=== PATIENT | female | born 1970 | race Caucasian/White ===

== ENCOUNTER 2022-02-14 19:39 | Observation (INO) ==
[2022-02-14 20:13] LABS: Basophils # (auto) 0.06 K/uL (0-0.2); Basophils % (auto) 0.5 %; Eosinophils # (auto) 0.27 K/uL (0-0.50); Eosinophils % (auto) 2.1 %; Hemoglobin 12.6 g/dl (12.0-16.0); Immature Granulocytes # (auto) 0.08 K/uL (0.00-0.02); Immature Granulocytes % (auto) 0.6 %; Lymphocytes # (auto) 3.19 K/uL (1.2-3.4); Lymphocytes % (auto) 24.6 %; Mean Corpuscular Hgb Conc 34.1 g/dL (32.0-36.0); Mean Corpuscular Volume 93.9 fL (80.0-100.0); Mean Platelet Volume 10.4 fL (9.4-12.3); Monocytes % (auto) 6.2 %; Neutrophils # (auto) 8.57 K/uL (1.4-6.5); Platelet Count 275 K/uL (130-400); RDW Coefficient of Variation 14.6 % (11.5-14.5); RDW Standard Deviation 50.7 fL (36.4-46.3); Red Blood Count 3.94 M/uL (3.93-5.22); White Blood Count 12.97 K/ul (4.8-10.8)
--- NOTE | 2022-02-14 20:22 | CT Scan Report ---
HEAD CT NONCONTRAST CT DOSE: 691.05 mGy.cm HISTORY: fall, hit head, seizure TECHNIQUE: Multiaxial CT images of the head were performed without the use of intravenous contrast. A utomated exposure control was utilized for this study. A dose lowering technique was utilized adheri ng to the principles of ALARA. Comparison: None. Findings: The paranasal sinuses and mastoid air cells are clear. The calvarium and skull base are int act. The ventricles and sulci are within normal limits. There is no mass, hematoma, midline shift, or acute infarct. A few small calcified scalp nodules are noted. Mild right-sided scalp swelling. Impression: No acute intracranial abnormality. ACT 112: Negative or not required by law. Electronically signed by: Martin Ruff M.D. 02/14/2022 8:20 PM
[2022-02-14 20:45] LABS: Alanine Aminotransferase 38 U/L (7-52); Albumin Globulin Ratio 1.8 (0.9-2); Alkaline Phosphatase 92 U/L (34-104); Anion Gap 6 (3-11); Aspartate Aminotransferase 46 U/L (13-39); BUN Creatinine Ratio 19.3 (10-20); Bilirubin,Total 0.4 mg/dl (0.2-1.0); Blood Urea Nitrogen 17 mg/dl (6-23); Calcium 10.4 mg/dl (8.5-10.1); Carbon Dioxide 32 mmol/L (21-32); Chloride 102 mmol/L (98-107); Est GFR (African American) 87.6 ml/min; Est GFR (Non-African American) 75.5 ml/min; Globulin 2.8 gm/dl (2.5-4.0); Glucose 85 mg/dl (70-99(Fasting)); Sodium 140 mmol/L (136-145); Total Protein 7.8 gm/dl (6.0-8.3)
--- NOTE | 2022-02-14 20:53 | Emergency Department Note ---
Impression & Plan CHI (closed head injury), Breakthrough seizure, Facial numbness ED Provider Note Provider: Addy Callahan MD DATE OF SERVICE: 02/09/2022 CHIEF COMPLAINT: Seizure, fall HISTORY OF PRESENT ILLNESS: Patient is a 52-year-old female reported history of grand mal seizures since he was a child presenting here today after a seizure- like event. States that around 3 PM she was at home walking outside of a sudden collapse to the ground. Unsure how she was down for believe she had a seizure and did have incontinence. Woke up and made her way back inside. Complained of some pain and swelling of the right posterior head and feeling foggy and having some numbness to the right face and forehead as well as feeling weak in her hands. States after seizure she symptoms feels little bit weak but does not have this tingling history in the past. States she feels quite foggy and has a hard time remembering recent events. Evidently moving to the area from [place] and came here after checking with other family members about a week ago. Reports a bit of a headache. Denies other pain or injury to her chest or extremities. Reports she has been maintained on 1500 mg of nightly of Keppra but has not taken it in a month. Last seizure was about 3 months ago and followed in [place] with the neurologist and her primary doctor. Is looking to establish care locally once she got here. PAST MEDICAL HISTORY: As noted above MEDICATIONS: Reviewed home medications but not currently taking her Keppra SOCIAL HISTORY: Moving to the area from [place] PHYSICAL EXAM: GENERAL: alert and oriented in no acute distress on stretcher however is a bit anxious at times and forgetful of some recent events Head: normocephalic and atraumatic EYES: No injection, discharge or icterus. PERRL, EOMI. NECK: Trachea midline. Supple. ENT: Mucous membranes pink and moist. Pharynx without erythema or exudate. LUNGS: Airway patent. No retractions. Breath sounds clear with good air entry bilaterally. HEART: Regular rate and rhythm. No chest wall tenderness ABDOMEN: Soft and non-tender, without guarding or rebound. SKIN: Acyanotic, warm, dry, without rashes EXTREMITIES: Without swelling, tenderness or deformity NEUROLOGICAL: No aphasia. No facial droop or slurred speech. Normal strength and tone in the extremities. Sensation to gross touch normal in the extremities however endorses some tingling to her right face the jawline, across the cheek, and across the forehead. Ambulatory. EK bpm normal sinus rhythm. No PVC or PAC. No acute ST segment elevation or depression with a QTC of 443. CONTINUOUS CARDIAC MONITORING: was ordered and showed a heart rate of 70s-80s bpm in normal sinus rhythm Patient's laboratory studies and imaging reviewed. Differential includes Epilepsy, infection, hypoglycemia, electrolyte abnormalities, cardiac sources, intracerebral event, trauma, toxicologic, neurologic, syncope, as well as other pathologies. IMPRESSION/MEDICAL DECISION MAKING: Patient reported seizure earlier today. Reports some numbness and tingling to her right face including the forehead cheek and under her chin. Denies significant cute visual change but feels a bit foggy. Not hypoglycemic. Slight tenderness to the right posterior head but CT head without acute fracture or bleeding. No evidence of sinus disease but has reported with sinus congestion. Offer Which may be contributing. We will give a single dose of 2 g IV now. Basic labs obtained as well as EKG. Reviewed with the patient via her phone her outpatient medication list. Leukocytosis 12.9 but denies recent fevers does not have a fever here and question of this reactive to her seizure. No anemia. No significant electrolyte abnormality with a borderline high calcium of 10.4. Negative urinalysis. Negative COVID. CT brain report again which was reassuring. Given the tingling to the face question of this is postictal versus mild concussion given the fogginess she is having. Is able to answer question but again forgetful. Does not seem consistent with stroke distribution as again it does involve just the right side of the forehead which has dual innervation. Patient however is not back to her baseline. Monitor her brief and again given an IV dose of Keppra. Do not feel she requires a lumbar puncture at this time. Not having significant neck tenderness on exam. The nonspecific tingling of the right forehead and face seems not distributional and again low suspicion for CVA. Ambulatory to the bathroom but later a bit nauseous and given some Zofran. Patient improved. On reevaluation states she still feels very often is a bit confused still and with tingling on the right side of her face. Given this discussed with her further observation as she is not returned to baseline after this evening's apparent seizure. DIAGNOSIS: Breakthrough seizure, closed head injury, facial numbness DISPOSITION: Hospitalist will evaluate Patient was agreeable with this plan. Past Med/Surg History Social History Smoking Status: Current every day smoker Feels Safe at Home: Yes Allergies Allergies Allergy/AdvReac Type Severity Reaction Status Date / Time ampicillin Allergy Severe Anaphylaxis Verified 02/14/22 22:21 bee venom protein (honey bee) Allergy Severe Anaphylaxis Verified 02/14/22 22:21 droperidol [From Inapsine] Allergy Severe TONGUE Verified 02/14/22 22:21 SWELLED, HIVES Penicillins Allergy Severe Anaphylaxis Verified 02/14/22 22:21 promethazine [From Phenergan] Allergy Intermediate Hives Verified 02/14/22 22:21 Home Meds Home Medications Medication Instructions Recorded Confirmed albuterol sulfate 2.5 mg/3 mL 2.5 mg inhalation DIRECTED PRN 02/14/22 02/14/22 (0.083 %) solution for nebulization Shortness Of Breath Or Wheezing albuterol sulfate 90 mcg/actuation 2 puff inhalation DIRECTED PRN 02/14/22 02/14/22 aerosol inhaler Shortness Of Breath Or Wheezing cyanocobalamin (vitamin B-12) 1,000 mcg PO DAILY 02/14/22 02/14/22 1,000 mcg tablet (Vitamin B-12) cyclobenzaprine 10 mg tablet 10 mg PO TID PRN MUSCLE SPASMS 02/14/22 02/14/22 epinephrine 0.3 mg/0.3 mL 0.3 mg IM DIRECTED PRN Allergic 02/14/22 02/14/22 injection, auto-injector (EpiPen) Reaction fluticasone 500 mcg-salmeterol 50 1 inh inhalation BID 02/14/22 02/14/22 mcg/dose blistr powdr for inhalation (Advair Diskus) ibuprofen 800 mg tablet 800 mg PO Q6H PRN Pain 02/14/22 02/14/22 levetiracetam 500 mg 1,500 mg PO DAILY 02/14/22 02/14/22 tablet,extended release 24 hr (Keppra XR) levothyroxine 200 mcg tablet 200 mcg PO QAM 02/14/22 02/14/22 levothyroxine 50 mcg tablet 50 mcg PO QAM 02/14/22 02/14/22 tramadol 50 mg tablet 50 mg PO Q6H PRN Pain 02/14/22 02/14/22 Results & Data (ED) Vital Signs Vital Signs - 24 hr 02/14/22 19:47 02/14/22 20:30 02/14/22 20:30 Temperature 36.4 C L Temperature Source Temporal Artery Scan Pulse Rate 85 Pulse Rate [Apical] 78 Respiratory Rate 20 18 Respiratory Effort / Characteristics Non-Labored Respiratory Depth Normal Blood Pressure 156/99 H Blood Pressure [Left Arm] 148/94 H Blood Pressure Mean 118 Blood Pressure Mean [Left Arm] 112 Blood Pressure Position Sitting Pulse Oximetry 100 97 Oxygen Delivery Method Room Air Room Air Room Air Sepsis Recent Fever Within 48 Hours No Sepsis New/Unexplained Change in Mental Status N/A Sepsis Action Taken by Nursing No Action Required 02/14/22 21:30 02/14/22 22:00 02/14/22 22:00 Temperature Temperature Source Pulse Rate 69 Pulse Rate [Apical] 71 Respiratory Rate 18 17 Respiratory Effort / Characteristics Respiratory Depth Blood Pressure 136/82 Blood Pressure [Left Arm] 128/90 Blood Pressure Mean 100 Blood Pressure Mean [Left Arm] 102 Blood Pressure Position Pulse Oximetry 97 97 Oxygen Delivery Method Room Air Sepsis Recent Fever Within 48 Hours Sepsis New/Unexplained Change in Mental Status Sepsis Action Taken by Nursing 02/14/22 22:30 02/14/22 22:30 Temperature Temperature Source Pulse Rate 71 Pulse Rate [Apical] Respiratory Rate 20 Respiratory Effort / Characteristics Respiratory Depth Blood Pressure 132/81 Blood Pressure [Left Arm] Blood Pressure Mean 98 Blood Pressure Mean [Left Arm] Blood Pressure Position Pulse Oximetry 97 Oxygen Delivery Method Room Air Sepsis Recent Fever Within 48 Hours Sepsis New/Unexplained Change in Mental Status Sepsis Action Taken by Nursing Laboratory Data 02/14/22 19:58 02/14/22 19:58 Lab Results 02/14/22 02/14/22 02/14/22 Range/Units 19:58 19:58 20:30 WBC 12.97 H (4.8-10.8) K/ul RBC 3.94 (3.93-5.22) M/uL Hgb 12.6 (12.0-16.0) g/dl Hct 37.0 (34.1-44.9) % MCV 93.9 (80.0-100.0) fL MCH 32.0 (25.0-34.0) pg MCHC 34.1 (32.0-36.0) g/dL RDW Std Deviation 50.7 H (36.4-46.3) fL RDW Coeff of Domo 14.6 H (11.5-14.5) % Plt Count 275 (130-400) K/uL MPV 10.4 (9.4-12.3) fL Immature Gran % (Auto) 0.6 % Neut % (Auto) 66.0 % Lymph % (Auto) 24.6 % [place] % (Auto) 6.2 % Eos % (Auto) 2.1 % Baso % (Auto) 0.5 % Neut # (Auto) 8.57 H (1.4-6.5) K/uL Lymph # (Auto) 3.19 (1.2-3.4) K/uL [place] # (Auto) 0.80 (0.24-0.82) K/uL Eos # (Auto) 0.27 (0-0.50) K/uL Baso # (Auto) 0.06 (0-0.2) K/uL Immature Gran # (Auto) 0.08 H (0.00-0.02) K/uL Sodium 140 (136-145) mmol/L Potassium 4.0 (3.5-5.1) mmol/L Chloride 102 (98-107) mmol/L Carbon Dioxide 32 (21-32) mmol/L Anion Gap 6 (3-11) BUN 17 (6-23) mg/dl Creatinine 0.88 (0.6-1.2) mg/dl Est Cr Clr Drug Dosing Not Reportable Est GFR ( Amer) 87.6 ml/min Est GFR (Non-Af Amer) 75.5 ml/min BUN/Creatinine Ratio 19.3 (10-20) Glucose 85 (70-99(Fasting)) mg/dl Calcium 10.4 H (8.5-10.1) mg/dl Total Bilirubin 0.4 (0.2-1.0) mg/dl AST 46 H (13-39) U/L ALT 38 (7-52) U/L Alkaline Phosphatase 92 (34-104) U/L Total Protein 7.8 (6.0-8.3) gm/dl Albumin 5.0 (3.4-5.0) gm/dl Globulin 2.8 (2.5-4.0) gm/dl Albumin/Globulin Ratio 1.8 (0.9-2) Urine Color Urine Appearance (Clear) Urine pH (4.5-7.5) Ur Specific [place] (1.000-1.030) Urine Protein (Negative) Urine Glucose (UA) (Negative) Urine Ketones (Negative) Urine Blood (Negative) Urine Nitrite (Negative) Urine Bilirubin (Negative) Urine Urobilinogen (Negative) Ur Leukocyte Esterase (Negative) SARS-CoV-2, RNA, NAAT NEGATIVE (NEGATIVE) 02/14/22 Range/Units 20:56 WBC (4.8-10.8) K/ul RBC (3.93-5.22) M/uL Hgb (12.0-16.0) g/dl Hct (34.1-44.9) % MCV (80.0-100.0) fL MCH (25.0-34.0) pg MCHC (32.0-36.0) g/dL RDW Std Deviation (36.4-46.3) fL RDW Coeff of Domo (11.5-14.5) % Plt Count (130-400) K/uL MPV (9.4-12.3) fL Immature Gran % (Auto) % Neut % (Auto) % Lymph % (Auto) % [place] % (Auto) % Eos % (Auto) % Baso % (Auto) % Neut # (Auto) (1.4-6.5) K/uL Lymph # (Auto) (1.2-3.4) K/uL [place] # (Auto) (0.24-0.82) K/uL Eos # (Auto) (0-0.50) K/uL Baso # (Auto) (0-0.2) K/uL Immature Gran # (Auto) (0.00-0.02) K/uL Sodium (136-145) mmol/L Potassium (3.5-5.1) mmol/L Chloride (98-107) mmol/L Carbon Dioxide (21-32) mmol/L Anion Gap (3-11) BUN (6-23) mg/dl Creatinine (0.6-1.2) mg/dl Est Cr Clr Drug Dosing Est GFR ( Amer) ml/min Est GFR (Non-Af Amer) ml/min BUN/Creatinine Ratio (10-20) Glucose (70-99(Fasting)) mg/dl Calcium (8.5-10.1) mg/dl Total Bilirubin (0.2-1.0) mg/dl AST (13-39) U/L ALT (7-52) U/L Alkaline Phosphatase (34-104) U/L Total Protein (6.0-8.3) gm/dl Albumin (3.4-5.0) gm/dl Globulin (2.5-4.0) gm/dl Albumin/Globulin Ratio (0.9-2) Urine Color Yellow Urine Appearance Clear (Clear) Urine pH 7.0 (4.5-7.5) Ur Specific [place] 1.004 (1.000-1.030) Urine Protein Negative (Negative) Urine Glucose (UA) Negative (Negative) Urine Ketones Negative (Negative) Urine Blood Negative (Negative) Urine Nitrite Negative (Negative) Urine Bilirubin Negative (Negative) Urine Urobilinogen Negative (Negative) Ur Leukocyte Esterase Negative (Negative) SARS-CoV-2, RNA, NAAT (NEGATIVE) Administered Medications Discontinued Medications Levetiracetam 2,000 mg/ Sodium (Chloride) 270 mls @ 999 mls/hr IV NOW STA Stop: 02/14/22 21:03 Last Infusion: 02/14/22 21:28 Dose: 0 mls/hr Documented By: Admin: 02/14/22 21:07 Dose: 999 mls/hr Documented By: MYCHAL Ondansetron HCl (Ondansetron Inj 2 Mg/Ml 2 Ml Vial) 4 mg IV NOW STA Stop: 02/14/22 21:16 Last Admin: 02/14/22 21:26 Dose: 4 mg Documented By: MYCHAL Imaging Data Radiologist's Impression: Head CT 02/14/22 20:[address] DOSE: 691.05 mGy.cm HISTORY: fall, hit head, seizure TECHNIQUE: Multiaxial CT images of the head were performed without the use of intravenous contrast. Automated exposure control was utilized for this study. A dose lowering technique was utilized adhering to the principles of ALARA. Comparison: None. Findings: The paranasal sinuses and mastoid air cells are clear. The calvarium and skull base are intact. The ventricles and sulci are within normal limits. There is no mass, hematoma, midline shift, or acute infarct. A few small calcified scalp nodules are noted. Mild right-sided scalp swelling. Impression: No acute intracranial abnormality. ACT 112: Negative or not required by law. Electronically signed by: Martin Ruff M.D. 02/14/2022 8:20 PM Discharge Plan Visit Data Chief Complaint: Seizure Stated Complaint: Seizure AROUND 1500 TODAY ED Provider: Addy Callahan Discharge Problem: CHI (closed head injury), Breakthrough seizure, Facial numbness Patient Disposition: Being Evaluated by Hospitalist Forms Stand Alone Forms: My [facility] Prescriptions Prescriptions: No Action cyclobenzaprine 10 mg tablet 10 mg PO TID PRN (Reason: MUSCLE SPASMS) albuterol sulfate 2.5 mg /3 mL (0.083 %) Solution For Nebulization 2.5 mg INHALATION DIRECTED PRN (Reason: Shortness Of Breath Or Wheezing) ibuprofen 800 mg tablet 800 mg PO Q6H PRN (Reason: Pain) cyanocobalamin (vitamin B-12) [Vitamin B-12] 1,000 mcg Tablet 1,000 mcg PO DAILY tramadol 50 mg tablet 50 mg PO Q6H PRN (Reason: Pain) levothyroxine 50 mcg tablet 50 mcg PO QAM Rx Instructions: TOTAL DOSE 250 MCG--TAKES WITH 200 MCG TAB. fluticasone propion-salmeterol [Advair Diskus] 500-50 mcg/dose Blister With Device 1 inh INHALATION BID levothyroxine 200 mcg tablet 200 mcg PO QAM Rx Instructions: TOTAL DOSE 250 MCG--TAKES WITH 50 MCG TAB. epinephrine [EpiPen] 0.3 mg/0.3 mL Auto-Injector 0.3 mg IM DIRECTED PRN (Reason: Allergic Reaction) albuterol sulfate 90 mcg/actuation Hfa Aerosol Inhaler 2 puff INHALATION DIRECTED PRN (Reason: Shortness Of Breath Or Wheezing) levetiracetam [Keppra XR] 500 mg Tablet Extended Release 24 Hr 1,500 mg PO DAILY Referrals Referrals: PCP,NO [Primary Care Provider] - : CHI (closed head injury) Qualifiers: Encounter type: initial encounter Qualified Code(s): S09.90XA - Unspecified injury of head, initial encounter
[2022-02-14 21:05] LABS: Appearance Urine Clear (Clear); Bilirubin Urine Negative (Negative); Blood Urine Negative (Negative); Color Urine Yellow; Glucose Urine UA Negative (Negative); Ketones Urine Negative (Negative); Leukocyte Esterase Urine Negative (Negative); Nitrite Urine Negative (Negative); Protein Urine Negative (Negative); Specific Gravity Urine 1.004 (1.000-1.030); Urobilinogen Urine Negative (Negative)
[2022-02-14] MEDS ORDERED: ONDANSETRON INJ 2 MG/ML 2 ML VIAL IV STA (21:15)
--- NOTE | 2022-02-14 23:04 | History & Physical Report ---
Date of Service February 14, 2022 Assessment & Plan (1) Seizure disorder: Plan: 52yo female with history of epilepsy on Keppra 1500mg po daily, non-compliance with medications presenting with seizure today. She feels that she is more confused and doesn't feel back to normal. She feels that she having her seizure prodrome presently and thinks that she is going to have another seizure. Electrolytes are largely normal with only mild elevation of Ca. Glucose and Na are normal. CT Head is unremarkable. Suspect seizure secondary to medication non-adherence. Post-ictal state with possible Jelani paresis accounting for her facial numbness - atypical distribution? Possible mild-TBI, post-concussive syndrome can also be contributing to patient feeling "off" as well -Admit to medical with telemetry -Check Utox and Etoh level -Maintain seizure precautions -Ativan 2mg IV as needed for seizure activity -Continue Keppra 1500mg po daily -Obtain records from patient's PCP in [place] -Neurology consultation appreciated (2) Mild TBI: Plan: Patient reports ground level fall, striking the back right side of her head on the pavement. She is complaining of head pain as well as some neck discomfort. CT of the head notes mild right-sided scalp swelling. No intracranial pathology. CT of the c-spine is complete, results pending. Possible that mild concussion is contributing to patient's current state of feeling "off" -Await CT c-spine results -Neuro checks with [facility] q 4 hours -Neurology consultation appreciated (3) Hypothyroidism: Plan: Chronic -Check TSH with AM labs -Continue Synthroid 250mcg po daily (4) Asthma: Plan: Patient reports chronic, stable SOB. No cough, wheeze or worsening dyspnea -Continue Advair or formulary equivalent -Albuterol PRN (5) GILBERTO on CPAP: Plan: Chronic. Patient reports compliance with CPAP at home, 17cm H20 -CPAP qHS History of Present Illness Chief Complaint: seizure Primary Care Provider: NO PCP Aide Knott is a 52yo female with history of epilepsy on Keppra 1500mg po qHS as well as hypothyroidism, Asthma, GILBERTO, VTE and breast cancer s/p lumpectomy and chemotherapy now in remission. Patient is from [place] and is currently in the process of moving to the [facility]. She has not taken her Keppra for the last month. This afternoon around 1500 patient was with her partner. She left the house and was walking toward her car. She woke up approximately 20 minutes later laying on the driveway. She knows that she had a seizure because she was incontinent of both stool and urine and had a contusion on the back of her head. She thinks she was out for approximately 20 minutes because she started her car before the seizure and it was off when she woke up - reports that it typically runs 20 minutes before shutting off. Patient states that she has numbness of her face, predominantly across her forehead and near the right nasolabial fold and the right side of the mouth. She also feels somewhat confused and foggy as well as some nausea and headache. She reports she is feeling her seizure prodrome now - feels funny and tastes band-aides in her mouth. Patient states that after a seizure she typically sleeps the rest of the day but was anxious to sleep now because she thinks she may have a concussion. She denies fever, chills, chest pain, cough, SOB, abdominal pain. No EtOH use or recreational drug use. Patient has had seizures since childhood. She is on Keppra 1500mg po qHS but due to the move she has not taken it for the last month. She had a seizure three months ago and thinks she had one approximately 1 month ago as well. PCP is Dr. Crow Montemayor from [place], [place] In the ER patient was given 2000mg of Keppra IV Allergies Allergy/AdvReac Type Severity Reaction Status Date / Time ampicillin Allergy Severe Anaphylaxis Verified 02/14/22 22:21 bee venom protein (honey bee) Allergy Severe Anaphylaxis Verified 02/14/22 22:21 droperidol [From Inapsine] Allergy Severe TONGUE Verified 02/14/22 22:21 SWELLED, HIVES Penicillins Allergy Severe Anaphylaxis Verified 02/14/22 22:21 promethazine [From Phenergan] Allergy Intermediate Hives Verified 02/14/22 22:21 Home Medications Medication Instructions Recorded Confirmed Type albuterol sulfate 2.5 mg/3 mL 2.5 mg inhalation DIRECTED PRN 02/14/22 02/14/22 History (0.083 %) solution for nebulization Shortness Of Breath Or Wheezing albuterol sulfate 90 mcg/actuation 2 puff inhalation DIRECTED PRN 02/14/22 02/14/22 History aerosol inhaler Shortness Of Breath Or Wheezing cyanocobalamin (vitamin B-12) 1,000 mcg PO DAILY 02/14/22 02/14/22 History 1,000 mcg tablet (Vitamin B-12) cyclobenzaprine 10 mg tablet 10 mg PO TID PRN MUSCLE SPASMS 02/14/22 02/14/22 History epinephrine 0.3 mg/0.3 mL 0.3 mg IM DIRECTED PRN Allergic 02/14/22 02/14/22 History injection, auto-injector (EpiPen) Reaction fluticasone 500 mcg-salmeterol 50 1 inh inhalation BID 02/14/22 02/14/22 History mcg/dose blistr powdr for inhalation (Advair Diskus) ibuprofen 800 mg tablet 800 mg PO Q6H PRN Pain 02/14/22 02/14/22 History levetiracetam 500 mg 1,500 mg PO DAILY 02/14/22 02/14/22 History tablet,extended release 24 hr (Keppra XR) levothyroxine 200 mcg tablet 200 mcg PO QAM 02/14/22 02/14/22 History levothyroxine 50 mcg tablet 50 mcg PO QAM 02/14/22 02/14/22 History tramadol 50 mg tablet 50 mg PO Q6H PRN Pain 02/14/22 02/14/22 History Past Med/Surg History Medical History (Updated 02/15/22 @ 00:41 by Esthela Samson DO) Asthma Breast cancer In remission s/p lumpectomy and chemotherapy Hypothyroidism GILBERTO on CPAP Seizure disorder VTE (venous thromboembolism) history of RLE DVT s/p anticoagulation Surgical History (Updated 02/15/22 @ 00:18 by Esthela Samson DO) History of lumpectomy History of wisdom tooth extraction Family History (Updated 02/15/22 @ 00:18 by Esthela Samson DO) Other Cancer Social History (Updated 02/15/22 @ 00:18 by Esthela Samson DO) Smoking Status: Current every day smoker Hx Alcohol Use: No Hx Substance Use: No Feels Safe at Home: Yes Review of Systems Review of Systems: All systems reviewed & are unremarkable except as noted in HPI & below Physical Exam Physical Exam: General: patient resting comfortably, sleepy but answering questions and following commands, NAD, non-toxic in appearance, AA&O x 4 Skin: warm, dry, intact, no rashes or lesions HEENT: contusion on right posterior head, PERRL, +photophobia, EOMI, anicteric sclera, conjunctiva without injection, external ear normal to inspection and nontender, nares patent, moist mucus membranes, dentition intact, no oropharyngeal lesions, neck supple, trachea midline, no LAD, no thyromegaly, no JVD Heart: +S1/S2, regular, no m/r/g Lungs: equal air entry bilaterally, no rales/rhonchi/wheezes Abd: +BS, soft, NT/ND, no masses/organomegaly/ascites Ext: warm, 2+ pulses in UE/LE bilaterally, no clubbing/cyanosis or edema Neuro: nonfocal, patient AA&O x 4, speech slow, slightly slurred, no facial droop, moving all extremities on command with equal strength 5/5, decreased sensation to light touch across forehead, right V2 and V3 distribution Results & Data Results & Data ([facility]) Vital Signs (Past 12 Hours) Vital Signs Temp Pulse Pulse Resp BP BP Pulse Ox 02/14/22 22:30 71 20 97 02/14/22 22:30 132/81 02/14/22 22:00 69 17 97 02/14/22 22:00 136/82 02/14/22 21:30 71 18 128/90 97 02/14/22 20:30 78 18 148/94 H 97 02/14/22 20:30 02/14/22 19:47 36.4 C L 85 20 156/99 H 100 O2 Del Method 02/14/22 22:30 Room Air 02/14/22 22:30 02/14/22 22:00 02/14/22 22:00 02/14/22 21:30 Room Air 02/14/22 20:30 Room Air 02/14/22 20:30 Room Air 02/14/22 19:47 Room Air Laboratory Results Laboratory Results WBC 12.97 K/ul (4.8-10.8) H 02/14/22 19:58 RBC 3.94 M/uL (3.93-5.22) 02/14/22 19:58 Hgb 12.6 g/dl (12.0-16.0) 02/14/22 19:58 Hct 37.0 % (34.1-44.9) 02/14/22 19:58 MCV 93.9 fL (80.0-100.0) 02/14/22 19:58 MCH 32.0 pg (25.0-34.0) 02/14/22 19:58 MCHC 34.1 g/dL (32.0-36.0) 02/14/22 19:58 RDW Std Deviation 50.7 fL (36.4-46.3) H 02/14/22 19:58 RDW Coeff of Domo 14.6 % (11.5-14.5) H 02/14/22 19:58 Plt Count 275 K/uL (130-400) 02/14/22 19:58 MPV 10.4 fL (9.4-12.3) 02/14/22 19:58 Immature Gran % (Auto) 0.6 % 02/14/22 19:58 Neut % (Auto) 66.0 % 02/14/22 19:58 Lymph % (Auto) 24.6 % 02/14/22 19:58 [place] % (Auto) 6.2 % 02/14/22 19:58 Eos % (Auto) 2.1 % 02/14/22 19:58 Baso % (Auto) 0.5 % 02/14/22 19:58 Neut # (Auto) 8.57 K/uL (1.4-6.5) H 02/14/22 19:58 Lymph # (Auto) 3.19 K/uL (1.2-3.4) 02/14/22 19:58 [place] # (Auto) 0.80 K/uL (0.24-0.82) 02/14/22 19:58 Eos # (Auto) 0.27 K/uL (0-0.50) 02/14/22 19:58 Baso # (Auto) 0.06 K/uL (0-0.2) 02/14/22 19:58 Immature Gran # (Auto) 0.08 K/uL (0.00-0.02) H 02/14/22 19:58 Sodium 140 mmol/L (136-145) 02/14/22 19:58 Potassium 4.0 mmol/L (3.5-5.1) 02/14/22 19:58 Chloride 102 mmol/L (98-107) 02/14/22 19:58 Carbon Dioxide 32 mmol/L (21-32) 02/14/22 19:58 Anion Gap 6 (3-11) 02/14/22 19:58 BUN 17 mg/dl (6-23) 02/14/22 19:58 Creatinine 0.88 mg/dl (0.6-1.2) 02/14/22 19:58 Est Cr Clr Drug Dosing Not Reportable 02/14/22 19:58 Est GFR ( Amer) 87.6 ml/min 02/14/22 19:58 Est GFR (Non-Af Amer) 75.5 ml/min 02/14/22 19:58 BUN/Creatinine Ratio 19.3 (10-20) 02/14/22 19:58 Glucose 85 mg/dl (70-99(Fasting)) 02/14/22 19:58 Calcium 10.4 mg/dl (8.5-10.1) H 02/14/22 19:58 Total Bilirubin 0.4 mg/dl (0.2-1.0) 02/14/22 19:58 AST 46 U/L (13-39) H 02/14/22 19:58 ALT 38 U/L (7-52) 02/14/22 19:58 Alkaline Phosphatase 92 U/L (34-104) 02/14/22 19:58 Total Protein 7.8 gm/dl (6.0-8.3) 02/14/22 19:58 Albumin 5.0 gm/dl (3.4-5.0) 02/14/22 19:58 Globulin 2.8 gm/dl (2.5-4.0) 02/14/22 19:58 Albumin/Globulin Ratio 1.8 (0.9-2) 02/14/22 19:58 Urine Color Yellow 02/14/22 20:56 Urine Appearance Clear (Clear) 02/14/22 20:56 Urine pH 7.0 (4.5-7.5) 02/14/22 20:56 Ur Specific [place] 1.004 (1.000-1.030) 02/14/22 20:56 Urine Protein Negative (Negative) 02/14/22 20:56 Urine Glucose (UA) Negative (Negative) 02/14/22 20:56 Urine Ketones Negative (Negative) 02/14/22 20:56 Urine Blood Negative (Negative) 02/14/22 20:56 Urine Nitrite Negative (Negative) 02/14/22 20:56 Urine Bilirubin Negative (Negative) 02/14/22 20:56 Urine Urobilinogen Negative (Negative) 02/14/22 20:56 Ur Leukocyte Esterase Negative (Negative) 02/14/22 20:56 SARS-CoV-2, RNA, NAAT NEGATIVE (NEGATIVE) 02/14/22 20:[address] 02/14/22 20:[address] DOSE: 691.05 mGy.cm HISTORY: fall, hit head, seizure TECHNIQUE: Multiaxial CT images of the head were performed without the use of intravenous contrast. Automated exposure control was utilized for this study. A dose lowering technique was utilized adhering to the principles of ALARA. Comparison: None. Findings: The paranasal sinuses and mastoid air cells are clear. The calvarium and skull base are intact. The ventricles and sulci are within normal limits. There is no mass, hematoma, midline shift, or acute infarct. A few small calcified scalp nodules are noted. Mild right-sided scalp swelling. Impression: No acute intracranial abnormality. ACT 112: Negative or not required by law. Electronically signed by: Martin Ruff M.D. 02/14/2022 8:20 PM Code Status & VTE Plan VTE Prophylaxis Plan VTE Prophylaxis will be ordered: Yes PG Care Time/CCT Total # of Minutes Spent Total Time Spent with Patient: Total time spent is greater than 50% in coordination of care (as documented) at patient's floor/unit and/or counseling patient: Coding Level of Care Code 89698 INT INP/OBS CARE 2/55MIN Diagnoses Seizure disorder G40.909 Mild TBI S06.9XAA Hypothyroidism E03.9 Asthma J45.909 GILBERTO on CPAP G47.33; Z99.89
[2022-02-14] MEDS ORDERED: IBUPROFEN 800 MG TAB PO PRN (23:22)
[2022-02-14] MEDS ORDERED: ACETAMINOPHEN 325 MG TAB PO PRN (23:22)
[2022-02-14] MEDS ORDERED: CYCLOBENZAPRINE HCL 10 MG TAB PO PRN (23:22)
[2022-02-14] MEDS ORDERED: ALBUTEROL 0.5% NEB SOLN 2.5 MG/0.5 ML VIAL NEB PRN (23:22)
[2022-02-15] MEDS ORDERED: LORazepam 2 MG/1 ML VIAL IV ONE (00:01)
[2022-02-15 00:24] LABS: Magnesium 2.1 mg/dl (1.7-2.4); Phosphorus 3.6 mg/dl (2.5-4.9)
[2022-02-15] MEDS: LEVOTHYROXINE SODIUM 200 MCG TABLET PO SCH (05:35)
[2022-02-15] MEDS: LEVOTHYROXINE SODIUM 50 MCG TABLET PO SCH (05:35)
[2022-02-15 06:03] LABS: Amphetamines+Metham, Urine Neg (Neg); Barbiturates, Urine Neg (Neg); Benzodiazepine, Urine Neg (Neg); Cocaine, Urine Neg (Neg); MDMA (Ecstacy), Urine Neg (Neg); Methadone, Urine Neg (Neg); Opiate, Urine Neg (Neg); Phencyclidine, Urine Neg (Neg)
[2022-02-15 06:43] LABS: Hematocrit (blood only) 33.5 % (34.1-44.9); Hemoglobin 11.2 g/dl (12.0-16.0); Mean Corpuscular Hemoglobin 31.7 pg (25.0-34.0); Mean Corpuscular Hgb Conc 33.4 g/dL (32.0-36.0); Mean Corpuscular Volume 94.9 fL (80.0-100.0); Mean Platelet Volume 10.3 fL (9.4-12.3); Platelet Count 238 K/uL (130-400); RDW Coefficient of Variation 14.8 % (11.5-14.5); Red Blood Count 3.53 M/uL (3.93-5.22); White Blood Count 9.41 K/ul (4.8-10.8)
[2022-02-15 07:35] LABS: Albumin Level 4.2 gm/dl (3.4-5.0); BUN Creatinine Ratio 22.4 (10-20); Bilirubin Direct 0.1 mg/dl (0-0.2); Bilirubin,Total 0.4 mg/dl (0.2-1.0); Calcium 9.3 mg/dl (8.5-10.1); Creatinine Clr Calc Pharmacy 122.9 ml/min; Est GFR (African American) 104.5 ml/min; Est GFR (Non-African American) 90.2 ml/min; Potassium 3.3 mmol/L (3.5-5.1); Total Protein 6.5 gm/dl (6.0-8.3)
--- NOTE | 2022-02-15 07:38 | Hospitalist Progress Note ---
Date of Service February 15, 2022 Assessment & Plan (1) Seizure disorder: Plan: 52yo female with history of epilepsy on Keppra 1500mg po daily, non-compliance with medications presenting with seizure today. She feels that she is more confused and doesn't feel back to normal. She feels that she having her seizure prodrome presently and thinks that she is going to have another seizure. CT Head is unremarkable. Suspect seizure secondary to medication non-adherence. Post-ictal state with possible Jelani paresis accounting for her facial numbness - atypical distribution? Possible mild-TBI, post-concussive syndrome can also be contributing to patient feeling "off" as well - Utox and Etoh negative -Maintain seizure precautions -Ativan 2mg IV as needed for seizure activity -Continue Keppra 1500mg po daily -Obtain records from patient's PCP in [place] -Neurology consultation appreciated recommending adding Lamictal 25 twice daily as per the patient. Significant other Yvrose calls in and describes a possibility of the patient having a brainstem tumor. Pending MRI of her brain this evening (2) Mild TBI: Plan: Patient reports ground level fall, striking the back right side of her head on the pavement. She is complaining of head pain as well as some neck discomfort. CT of the head notes mild right-sided scalp swelling. No intracranial pathology. CT of the c-spine Possible that mild concussion is contributing to patient's current state of feeling "off" -Neuro checks with [facility] q 4 hours -Neurology consultation appreciated (3) Hypothyroidism: Plan: Chronic -Check TSH very high, may fuit with non compliance adding T4, T4 is low we will continue her usual home dose -Continue Synthroid 250mcg po daily (4) Asthma: Plan: Patient reports chronic, stable SOB. No cough, wheeze or worsening dyspnea -Continue Advair or formulary equivalent -Albuterol PRN (5) GILBERTO on CPAP: Plan: Chronic. Patient reports compliance with CPAP at home, 17cm H20 -CPAP qHS Admission and Anticipated Discharge Date Admission Date: February 14, 2022 Subjective Patient is groggy and complaining of a headache. The headache escalated in the afternoon repeat CT scan of her head was performed without evidence of intracranial bleeding or subdural subarachnoid hemorrhage. Patient has some nausea and photophobia and typically sleeping. She did not eat substantially or walk safely. 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 We do not see any evidence of changes on CT scan of her neck or CT head. She does have little loss of lordotic curvature consistent with whiplash however we will pursue an MRI of her brain with pretreatment with Ativan prior to Patient is also had some recent piercings to her right upper chest there is 2 a reas of piercings that are reddened. Patient says that she did have some discharge from these and we will treat that with doxycycline Review of Systems Constitutional: Mild distress and fatigue Bilateral frontal headache, without visual changes no swallowing issues physical some slurring of her speech talk screen negative no chest pain, pressure or palpitations no shortness of breath, cough or wheezes no abdominal pain, nausea or vomiting, diarrhea or constipation no dysuria, hematuria or frequency no focal joint pain or swelling no back pain, CVA tenderness or radicular pain no bruising, bleeding or rashes no focal signs of weakness or numbness or altered sensation no current complaints of anxiety or depression.. Physical Exam Physical Exam: The patient appeared well nourished and normally developed. Contusion to her right supraorbital ridge Vital signs as documented. Head exam is normocephalic Neck is without JVD, thyromegaly, or carotid bruits. Lungs are clear to auscultation, no focal loss of breath sounds Cardiac exam, Rhythm is regular.. No murmurs, rubs or gallops. Abdominal exam reveals normal bowel sounds, soft non tender, no masses Extremities are nonedematous and both pedal pulses are present Neurologic exam is alert and oriented, no focal loss of strength or sensation Skin is without bruises or rashes Psychologically is without concerns for anxiety or depression.. Results & Data Results & Data ([facility]) Vital Signs (Past 12 Hours) Vital Signs Temp Pulse Pulse Pulse Resp BP BP 02/15/22 03:53 97.3 F L 70 20 151/94 H 02/15/22 03:20 67 16 02/15/22 00:12 68 02/15/22 00:00 97.5 F L 71 16 125/79 02/15/22 00:29 66 20 02/14/22 23:59 97.5 F L 71 18 125/79 02/14/22 23:31 65 12 127/67 02/14/22 22:30 71 20 02/14/22 22:30 132/81 02/14/22 22:00 69 17 02/14/22 22:00 136/82 02/14/22 21:30 71 18 128/90 02/14/22 20:30 78 18 148/94 H 02/14/22 20:30 02/14/22 19:47 97.5 F L 85 20 156/99 H Pulse Ox O2 Del Method FiO2 02/15/22 03:53 97 CPAP 02/15/22 03:20 97 21 02/15/22 00:12 02/15/22 00:00 97 Room Air 02/15/22 00:29 94 02/14/22 23:59 97 Room Air 02/14/22 23:31 97 Room Air 02/14/22 22:30 97 Room Air 02/14/22 22:30 02/14/22 22:00 97 02/14/22 22:00 02/14/22 21:30 97 Room Air 02/14/22 20:30 97 Room Air 02/14/22 20:30 Room Air 02/14/22 19:47 100 Room Air PG Care Time/CCT Total # of Minutes Spent Total Time Spent with Patient: Total time spent is greater than 50% in coordination of care (as documented) at patient's floor/unit and/or counseling patient: Coding Level of Care Code 55865 SUB INP/OBS CARE 2/35MIN Diagnoses Seizure disorder G40.909 Mild TBI S06.9XAA Hypothyroidism E03.9 Asthma J45.909 GILBERTO on CPAP G47.33; Z99.89
[2022-02-15] MEDS: FLUTICASONE/VILANTEROL 200/25MCG 14 PUFFS/INHALER INH SCH (07:56)
--- NOTE | 2022-02-15 08:08 | Electrocardiogram Report ---
Test Reason : Blood Pressure : / mmHG Vent. Rate : 077 BPM Atrial Rate : 077 BPM P-R Int : 186 ms QRS Dur : 102 ms QT Int : 392 ms P-R-T Axes : 040 008 026 degrees QTc Int : 443 ms Normal sinus rhythm Normal ECG No previous ECGs available Confirmed by Amador Rodríguez ([id number]) on 02/15/2022 8:08:16 AM Referred By: REFERRED SELF Confirmed By:Amador Rodríguez
--- NOTE | 2022-02-15 08:19 | CT Scan Report ---
CT OF THE CERVICAL SPINE WITHOUT CONTRAST CLINICAL HISTORY: fall, head trauma COMPARISON STUDY: No previous studies for comparison. TECHNIQUE: Helical axial images of the cervical spine were obtained without IV contrast. Sagittal a nd coronal reconstructions were viewed. Automated exposure control was utilized for the study. A do se lowering technique was utilized adhering to the principles of ALARA. FINDINGS: There is straightening of the cervical lordosis. Vertebral body heights are maintained. No acute cervical spine fracture or subluxation is present. There is no prevertebral edema. Facet joints are intact. Mild multilevel degenerative changes within the cervical spine are present. IMPRESSION: No acute cervical spine fracture or subluxation. ACT 112: Negative or not required by law. Electronically signed by: Ihsan Reyes M.D. 02/15/2022 8:17 AM
--- NOTE | 2022-02-15 12:04 | Neurology Consultation ---
Date of Consultation February 15, 2022 Assessment & Plan (1) Seizure disorder: (2) Mild TBI: Plan 52-year-old female with a history of epilepsy beginning in childhood, noncompliance with medication, in the process of moving from [place] to [facility]. Patient probably has focal onset seizures with secondary generalization. She was supposed to be taking Keppra XR 1500 mg once daily. I do not believe we have the extended release formulation of Keppra on formulary in the hospital. I would recommend changing her prescription to Keppra 1000 mg twice daily. Further, in speaking with the patient it sounds like she was also supposed to be taking Lamictal. I would recommend restarting Lamictal at a low dose, 25 mg twice daily. I do not think an EEG would change her management at this time and is not necessary. Although her mild persistent right-sided weakness is likely post ictal (Jelani's paralysis), I would recommend obtaining a gadolinium-enhanced brain MRI for further evaluation. Patient may follow-up with myself or an MICHAELLE in neurology clinic in 2 to 3 weeks. Patient should not be driving a motor vehicle at this time. A report with the Department of Transportation should be filed. 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 History of Present Illness Reason for Consultation: seizure Requesting Physician: Esthela Samson DO Attending Physician: Yemi Millard MD History of Present Illness The patient is a 52-year-old female with a history of epilepsy diagnosed in childhood, 6 months of age, who presented to the emergency department yesterday for further evaluation and management of a seizure that occurred around 3 PM while at home. She was apparently walking from her house towards her car and woke up approximately 20 minutes later lying on the driveway, apparently incontinent of stool and urine and had a contusion on the back of her head. Patient does not recall experiencing any warning sign or aura although she has had aura in the past which she describes as an unpleasant smell of Band-Aids. She has been in the process of moving from [place] to [facility] and reports that she has been noncompliant with her seizure medication for at least the past month or so as she has been trying to stretch out her existing prescription while she was waiting for coverage for new medical insurance. She indicates that she had a seizure approximately 3 weeks ago as well. She had urinary incontinence with a recent seizure and has been mildly postictal with some associated right facial numbness and mild right-sided weakness. She remarks that she has had postictal weakness in the past associated with her seizures. Her outpatient medications included Keppra ER 1500 mg/day. However, she also informs me that she was supposed to be taking Lamictal and that her previous neurologist had suggested that she may be a good candidate for VNS. She recalls previous trials of phenytoin and Tegretol. A CT of the head was negative for hemorrhage or acute process. A CT of the cervical spine was negative for fracture or subluxation. I did independently review these images and agree with the findings as described by the interpreting radiologist. Allergies Allergy/AdvReac Type Severity Reaction Status Date / Time ampicillin Allergy Severe Anaphylaxis Verified 02/14/22 22:21 bee venom protein (honey bee) Allergy Severe Anaphylaxis Verified 02/14/22 22:21 droperidol [From Inapsine] Allergy Severe TONGUE Verified 02/14/22 22:21 SWELLED, HIVES Penicillins Allergy Severe Anaphylaxis Verified 02/14/22 22:21 promethazine [From Phenergan] Allergy Intermediate Hives Verified 02/14/22 22:21 Home Medications Medication Instructions Recorded Confirmed Type albuterol sulfate 2.5 mg/3 mL 2.5 mg inhalation DIRECTED PRN 02/14/22 02/14/22 History (0.083 %) solution for nebulization Shortness Of Breath Or Wheezing albuterol sulfate 90 mcg/actuation 2 puff inhalation DIRECTED PRN 02/14/22 02/14/22 History aerosol inhaler Shortness Of Breath Or Wheezing cyanocobalamin (vitamin B-12) 1,000 mcg PO DAILY 02/14/22 02/14/22 History 1,000 mcg tablet (Vitamin B-12) cyclobenzaprine 10 mg tablet 10 mg PO TID PRN MUSCLE SPASMS 02/14/22 02/14/22 History epinephrine 0.3 mg/0.3 mL 0.3 mg IM DIRECTED PRN Allergic 02/14/22 02/14/22 History injection, auto-injector (EpiPen) Reaction ibuprofen 800 mg tablet 800 mg PO Q6H PRN Pain 02/14/22 02/14/22 History tramadol 50 mg tablet 50 mg PO Q6H PRN Pain 02/14/22 02/14/22 History fluticasone 500 mcg-salmeterol 50 1 inh inhalation BID #1 ea 02/15/22 Rx mcg/dose blistr powdr for inhalation (Advair Diskus) levetiracetam 500 mg 1,500 mg PO DAILY #180 tabs 02/15/22 Rx tablet,extended release 24 hr (Keppra XR) levothyroxine 200 mcg tablet 200 mcg PO QAM #30 tabs 02/15/22 Rx levothyroxine 50 mcg tablet 50 mcg PO QAM #30 tabs 02/15/22 Rx Patient History Medical History Asthma Breast cancer In remission s/p lumpectomy and chemotherapy Hypothyroidism GILBERTO on CPAP Seizure disorder VTE (venous thromboembolism) history of RLE DVT s/p anticoagulation Surgical History History of lumpectomy History of wisdom tooth extraction Family History Other Cancer Social History Smoking Status: Former smoker Cigarettes Per Day: 1/2 PPD; Smoking End Date: 3 years ago; Tobacco Cessation Education Requested by Patient: No Hx Alcohol Use: No Hx Substance Use: No Preferred Language: Hungarian Communication Ability: Effective 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: No Beliefs That Will Affect Care: None Current Living Situation: Other Current Living Situation Comment: Lives w/ partner Other Information That Helps Us Care for You: No Feels Safe at Home: Yes Safety Concerns: Feels Safe At This Time Assistive Devices: CPAP and Glasses Review of Systems Constitutional: no fever and no chills Eyes: no blind spots and no diplopia Ear, Nose, Mouth, Throat: no hearing loss Respiratory: no cough and no dyspnea Cardiovascular: no chest pain and no palpitations Gastrointestinal: no nausea and no vomiting Genitourinary: no dysuria and no urinary urgency Musculoskeletal: + back pain; no myalgia Integumentary: no rash and no lesions Neurologic: as per Subjective / HPI Psychiatric: no depression and no anxiety Hematologic / Lymphatic: no easy bleeding and no easy bruising Exam (Neuro) Constitutional: well developed and well nourished Eyes: normal visual carrington by confrontation, PERRL, normal accommodation and EOM intact bilaterally; no fundoscopic abnormality and no papilledema Cardiovascular: Vessels: normal carotid upstroke; no carotid bruit Neurologic: Oriented to:: Person, Place and Time Memory: Short Term Intact and Remote Intact Attention: Span Intact and Concentration Intact Speech Fluency: negative Dysarthria or Dysfluency Fund of Knowledge: Current Events, Past History and Vocabulary Cranial Nerves: Normal II, III, IV, , VIII, IX, X, XI and XII; Abnorm V (Diminished sensation to light touch along the right side of the face noted.) or VII (Mild right facial weakness noted) Motor Strength: Pronator Drift Laterality: Right and Hemiparesis (Very mild right hemiparesis noted for the arm and leg) Laterality: Right Muscle Bulk/Involuntary Movements: No Involuntary Movements; negative Muscle Atrophy Sensation: Vibration Intact and Proprioception Intact; negative Light Touch Intact (Diminished sensation for the right arm and leg noted) or Pain/Temperature Intact Coordination: Finger-Nose Abnormal Laterality: Right and Heel-Garcia Abnormal Laterality: Right Deep Tendon Reflexes: Rt Triceps: 2+, Lt Triceps: 2+, Rt Biceps: 2+, Lt Biceps: 2+, Rt Brachioradialis: 2+, Lt Brachioradialis: 2+, Rt Patellar: 2+, Lt Patellar: 2+, Rt Ankle: 2+ and Lt Ankle: 2+ Special Tests: negative Babinski Present Details: Gait not tested in the context of patient's current neurological status. Results & Data ([facility]) Vital Signs (Past 12 Hours) Vital Signs Temp Pulse Pulse Resp BP Pulse Ox O2 Del Method 02/15/22 11:42 36.5 C 68 19 117/78 96 Room Air 02/15/22 08:10 64 18 120/68 97 BiPAP 02/15/22 07:40 65 02/15/22 03:53 36.3 C L 70 20 151/94 H 97 CPAP 02/15/22 03:20 67 16 97 02/15/22 00:12 68 02/15/22 00:00 36.4 C L 71 16 125/79 97 Room Air 02/15/22 00:29 66 20 94 02/14/22 23:59 36.4 C L 71 18 125/79 97 Room Air FiO2 02/15/22 11:42 02/15/22 08:10 02/15/22 07:40 02/15/22 03:53 02/15/22 03:20 21 02/15/22 00:12 02/15/22 00:00 02/15/22 00:29 02/14/22 23:59 Laboratory Results WBC 9.41, hemoglobin 11.2, hematocrit 33.5, MCV 94.9, platelet count 238, sodium 140, potassium 3.3, BUN 17, creatinine 0.76, glucose 113, calcium 9.3, AST 35, ALT 30, TSH 40.632, free T4 0.[address] of the head and cervical spine are as described in the history of present illness. I did independently review these images. Electrocardiogram revealed a normal sinus rhythm, 77 bpm. PG Care Time/CCT Total # of Minutes Spent Total Time Spent with Patient: Total time spent is greater than 50% in coordination of care (as documented) at patient's floor/unit and/or counseling patient: Coding Level of Care Code 40125 INT INP/OBS CARE 375MIN Diagnoses Seizure disorder G40.909 Mild TBI S06.9XAA
[2022-02-15] MEDS ORDERED: ONDANSETRON INJ 2 MG/ML 2 ML VIAL IV STA (12:44)
[2022-02-15] MEDS ORDERED: KETOROLAC 30 MG/ML VIAL IV ONE (12:44)
--- NOTE | 2022-02-15 14:17 | CT Scan Report ---
CT SCAN OF THE BRAIN WITHOUT IV CONTRAST CLINICAL HISTORY: Headache. Recent fall. COMPARISON STUDY: CT of the brain dated 02/14/2022. TECHNIQUE: Unenhanced axial CT scan of the brain is performed from the vertex to the skull base. A d ose lowering technique was utilized adhering to the principles of ALARA. The patient was scanned twic e due to motion artifact. CT DOSE: 1074.96 mGy.cm FINDINGS: Brain parenchyma: The brain parenchyma is normal in appearance. There is no hemorrhage, mass effect, or evidence of acute territorial ischemia by CT criteria. Gresham-white matter differentiation is preser prashanth. No extra-axial fluid collection is seen. Ventricles, sulci, cisterns: Normal in configuration. Intracranial vasculature: The visualized intracranial vasculature at the skull base is normal in appe arance. Calvarium: Unremarkable. Sinuses and mastoids: The visualized paranasal sinuses are clear. The mastoid air cells are well pneu matized. Orbits: The bony orbits are grossly intact. IMPRESSION: No acute intracranial abnormality. No significant change from previous. ACT 112: Negative or not required by law. Electronically signed by: Donnell Mayers M.D. 02/15/2022 2:16 PM
[2022-02-15] MEDS ORDERED: POTASSIUM CHLORIDE CRTAB 20 MEQ TABCR PO STA (14:51)
[2022-02-15] MEDS ORDERED: LORazepam 2 MG/1 ML VIAL IV SCH (15:00)
[2022-02-15] MEDS ORDERED: AMOXICILLIN/CLAVULANATE 875 MG TAB PO SCH (17:00)
[2022-02-15] MEDS ORDERED: GADOBUTROL 65ML VIAL IV ONE (17:53)
--- NOTE | 2022-02-15 18:42 | Magnetic Resonance Report ---
MRI OF THE BRAIN COMBO CLINICAL HISTORY: Brainstem tumor. Reported history of epilepsy. COMPARISON STUDY: CT of the brain dated 02/15/2022 TECHNIQUE: MRI of the brain was performed utilizing various T1 and T2-weighted sequences in the axial , sagittal, and coronal planes. Contrast-enhanced sequences were acquired following the administratio n of 12.1 cc of Gadavist. The examination is compromised by motion artifact. FINDINGS: Brain parenchyma: There is a 6 mm blush of enhancement within the central buzz, best seen on coronal image #15. This is faintly T2 hyperintense and may show blooming artifact on the T2* image. 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 No additional foci of abnormal en hancement are identified on the post contrast sequences. There is no hemorrhage or mass effect. There is no restricted diffusion to suggest acute ischemia. Gresham-white matter differentiation is preserved . No extra-axial fluid collection is seen. The cerebellar tonsils are normal in configuration. Ventricles, sulci, and cisterns: Normal in configuration. Pituitary and sella: Unremarkable. Intracranial vasculature: Normal flow voids are maintained at the skull base. Orbits: The bony orbits are grossly intact. Orbital contents are normal in appearance. Sinuses and mastoids: Clear. Calvarium: Unremarkable. Soft tissues: Numerous sebaceous cysts are incidentally noted in the scalp. Cervical cord: Partially visualized cervical spinal cord is normal in morphology and signal intensity . IMPRESSION: 1. No acute intracranial abnormality. 2. There is a 6 mm blush of enhancement within the central buzz as detailed above. The location and a ppearance are most typical for a capillary telangiectasia. Correlate with any prior outside imaging s tudies. ACT 112: Negative or not required by law. Electronically signed by: Donnell Mayers M.D. 02/15/2022 6:40 PM
[2022-02-15] MEDS ORDERED: levETIRAcetam 500 MG TAB PO SCH (21:00)
[2022-02-15] MEDS: lamoTRIgine 25 MG TAB PO SCH (21:13)
[2022-02-15] MEDS: DOXYCYCLINE HYCLATE 100 MG CAP PO SCH (21:13)
[2022-02-16] MEDS ORDERED: METOCLOPRAMIDE HCL INJ 5 MG/ML 2 ML VIAL IV PRN (03:56)
[2022-02-16] MEDS: LEVOTHYROXINE SODIUM 50 MCG TABLET PO SCH (05:56)
[2022-02-16] MEDS: LEVOTHYROXINE SODIUM 200 MCG TABLET PO SCH (05:56)
[2022-02-16] MEDS ORDERED: traMADol HCL 50 MG TABLET PO STA (06:19)
[2022-02-16] MEDS: FLUTICASONE/VILANTEROL 200/25MCG 14 PUFFS/INHALER INH SCH (07:50)
[2022-02-16] MEDS: DOXYCYCLINE HYCLATE 100 MG CAP PO SCH (07:51)
[2022-02-16] MEDS: lamoTRIgine 25 MG TAB PO SCH (07:51)
[2022-02-16] MEDS ORDERED: MoRPHine SULFATE 2 MG/ML CARP IV STA (08:50)
--- NOTE | 2022-02-16 16:27 | Discharge Summary ---
Date of Service February 16, 2022 Admission HPI Per Admitting Provider Aide Knott is a 52yo female with history of epilepsy on Keppra 1500mg po qHS as well as hypothyroidism, Asthma, GILBERTO, VTE and breast cancer s/p lumpectomy and chemotherapy now in remission. Patient is from [place] and is currently in the process of moving to the [facility]. She has not taken her Keppra for the last month. This afternoon around 1500 patient was with her partner. She left the house and was walking toward her car. She woke up approximately 20 minutes later laying on the driveway. She knows that she had a seizure because she was incontinent of both stool and urine and had a contusion on the back of her head. She thinks she was out for approximately 20 minutes because she started her car before the seizure and it was off when she woke up - reports that it typically runs 20 m inutes before shutting off. Patient states that she has numbness of her face, predominantly across her forehead and near the right nasolabial fold and the right side of the mouth. She also feels somewhat confused and foggy as well as some nausea and headache. She reports she is feeling her seizure prodrome now - feels funny and tastes band-aides in her mouth. Patient states that after a seizure she typically sleeps the rest of the day but was anxious to sleep now because she thinks she may have a concussion. She denies fever, chills, chest pain, cough, SOB, abdominal pain. No EtOH use or recreational drug use. Patient has had seizures since childhood. She is on Keppra 1500mg po qHS but due to the move she has not taken it for the last month. She had a seizure three months ago and thinks she had one approximately 1 month ago as well. PCP is Dr. Crow Montemayor from [place], [place] In the ER patient was given 2000mg of Keppra IV Principal Diagnosis seizure post concussive syndrome with headache Discharge Exam PT is awake and alert, told not to drive today recommended follow up soon with pcp she has headache and some scalp contusion on r Discharge Data Allergies Allergy/AdvReac Type Severity Reaction Status Date / Time ampicillin Allergy Severe Anaphylaxis Verified 02/14/22 22:21 bee venom protein (honey bee) Allergy Severe Anaphylaxis Verified 02/14/22 22:21 droperidol [From Inapsine] Allergy Severe TONGUE Verified 02/14/22 22:21 SWELLED, HIVES Penicillins Allergy Severe Anaphylaxis Verified 02/14/22 22:21 promethazine [From Phenergan] Allergy Intermediate Hives Verified 02/14/22 22:21 Consultations 02/14/22 22:13 ED Decision to Admit Stat 02/15/22 00:19 Consult Neurology Routine Ordered Studies 02/14/22 20:03 CT head/brain wo con Stat 02/14/22 22:53 CT cervical spine wo con Urgent 02/15/22 12:44 CT head/brain wo con Urgent 02/15/22 14:51 MR brain wo/w con Routine Hospital Course (1) Seizure disorder: 52yo female with history of epilepsy on Keppra 1500mg po daily, non-compliance with medications presenting with seizure today. She feels that she is more confused and doesn't feel back to normal. She feels that she having her seizure prodrome presently and thinks that she is going to have another seizure. CT Head is unremarkable. Suspect seizure secondary to medication non-adherence. Post-ictal state with possible Jelani paresis accounting for her facial numbness - atypical distribution? Possible mild-TBI, post-concussive syndrome can also be contributing to patient feeling "off" as well - Utox and Etoh negative -Maintain seizure precautions -Ativan 2mg IV as needed for seizure activity -Continue Keppra 1500mg po daily -Obtain records from patient's PCP in [place] -Neurology consultation appreciated recommending adding Lamictal 25 twice daily as per the patient. MRI of her brain 02/15/22 No acute intracranial abnormality.. There is a 6 mm blush of enhancement within the central buzz as detailed above. 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 Correlate with any prior outside imaging studies. (2) Mild TBI: Patient reports ground level fall, striking the back right side of her head on the pavement. She is complaining of head pain as well as some neck discomfort. CT of the head notes mild right-sided scalp swelling. No intracranial pathology. CT of the c-spine Possible that mild concussion is contributing to patient's current state of feeling "off" -Neuro checks with [facility] q 4 hours -Neurology consultation appreciated (3) Hypothyroidism: Chronic -Check TSH very high, may fuit with non compliance adding T4, T4 is low we will continue her usual home dose -Continue Synthroid 250mcg po daily (4) Asthma: Patient reports chronic, stable SOB. No cough, wheeze or worsening dyspnea -Continue Advair or formulary equivalent -Albuterol PRN (5) GILBERTO on CPAP: Chronic. Patient reports compliance with CPAP at home, 17cm H20 -CPAP qHS Total Time Total Time Spent Total Time Spent (In Minutes): It required greater than 30 minutes to prepare this patient for discharge Discharge Plan Discharge Items Patient Disposition: Home - Self-Care Reason For Visit: SEIZURE, HEAD TRAUMA Discharge Diagnosis: seizure concussion hypothyroidism skin infection at [facility] site Activity: Per Instructions section Activity Comment: see post concussion instructions Non-emergency contact: Primary Care Provider Call non-emergency contact if: your symptoms worsen Follow-up/Referrals: Rah Triana DO [Physician] - 02/22/22 9:20 am (Please arrive 15 minutes prior to appointment time) Diet: Regular Addtl Attending Provider Instructions: Rest and Hydration are the most important things after a concussion take you home meds regularly and please keep your follow up appointment try to get your records sent from [facility] to your new primary care Pending Studies at Discharge: No Stand-Alone Forms: My [employer], Smoking Cessation Medications and DC Order Prescriptions: New doxycycline hyclate 100 mg Capsule 100 mg PO BID Qty: 10 0RF levetiracetam [Keppra] 500 mg Tablet 1,500 mg PO QPM Qty: 90 1RF lamotrigine [Lamictal] 25 mg Tablet 25 mg PO BID Qty: 60 0RF levothyroxine [Synthroid] 50 mcg Tablet 50 mcg PO DAILYBB Qty: 30 0RF levothyroxine [Synthroid] 200 mcg Tablet 200 mcg PO DAILYBB Qty: 30 0RF Continued ibuprofen 800 mg tablet 800 mg PO Q6H PRN (Reason: Pain) cyanocobalamin (vitamin B-12) [Vitamin B-12] 1,000 mcg Tablet 1,000 mcg PO DAILY epinephrine [EpiPen] 0.3 mg/0.3 mL Auto-Injector 0.3 mg IM DIRECTED PRN (Reason: Allergic Reaction) levothyroxine 50 mcg tablet 50 mcg PO QAM Qty: 30 0RF Rx Instructions: TOTAL DOSE 250 MCG--TAKES WITH 200 MCG TAB. fluticasone propion-salmeterol [Advair Diskus] 500-50 mcg/dose Blister With Device 1 inh INHALATION BID Qty: 1 0RF levothyroxine 200 mcg tablet 200 mcg PO QAM Qty: 30 0RF Rx Instructions: TOTAL DOSE 250 MCG--TAKES WITH 50 MCG TAB. levetiracetam [Keppra XR] 500 mg Tablet Extended Release 24 Hr 1,500 mg PO DAILY Qty: 180 0RF Discontinued cyclobenzaprine 10 mg tablet 10 mg PO TID PRN (Reason: MUSCLE SPASMS) albuterol sulfate 2.5 mg /3 mL (0.083 %) Solution For Nebulization 2.5 mg INHALATION DIRECTED PRN (Reason: Shortness Of Breath Or Wheezing) tramadol 50 mg tablet 50 mg PO Q6H PRN (Reason: Pain) albuterol sulfate 90 mcg/actuation Hfa Aerosol Inhaler 2 puff INHALATION DIRECTED PRN (Reason: Shortness Of Breath Or Wheezing) Discharge Orders: Discharge Order (Routine); Ordered 02/16/22 Ordered By: Yemi Natarajan/Other Patient Handouts: Concussion Dc Admission Data Admit Date/Time: 02/14/22 23:03 Attending Provider: Yemi Millard Admit Provider: Esthela Samson Primary Care Provider: PCP,NO Other Providers: Esthela Samson ; Ernesto Burleson Other Interventions: Discharge Summary Assessment (RN) Last Done: 02/16/22 12:23 Coding Level of Care Code HOSP INP/OBS DISCH >30 MIN Diagnoses Seizure disorder G40.909 Mild TBI S06.9XAA Hypothyroidism E03.9 Asthma J45.909 GILBERTO on CPAP G47.33; Z99.89
== END 2022-02-16 12:40 | disposition home or self-care (01) ==
LOC: EDINP 19:39 → ED 19:39 → SUATTDRO 23:03 → 2N 02-15 00:11
DX: Z88.0 Allergy status to penicillin; Z87.891 Personal history of nicotine dependence; E03.9 Hypothyroidism, unspecified; S09.90XA Unspecified injury of head, initial encounter; G40.909 Epilepsy, unspecified, not intractable, without status epilepticus; W19.XXXA Unspecified fall, initial encounter; G47.33 Obstructive sleep apnea (adult) (pediatric); Z87.820 Personal history of traumatic brain injury; Z88.1 Allergy status to other antibiotic agents; Z91.030 Bee allergy status; S06.9XAA Unspecified intracranial injury with loss of consciousness status unknown, initial encounter; Z79.899 Other long term (current) drug therapy; Z88.8 Allergy status to other drugs, medicaments and biological substances

== ENCOUNTER 2022-08-05 16:53 | Inpatient (IN) ==
--- NOTE | 2022-08-05 16:59 | ED Triage Note ---
Date of Service August 05, 2022 History of Present Illness This patient was briefly evaluated while in triage. An abbreviated physical exam was performed. This patient is a 52-year-old Female who presents to the ED for evaluation of several complaints. Chest pains a few days ago. 60 min ago, around 4pm, started with right side facial numbness. Hard time finding words. Drove self to ER. Hx of Seizures. Stroke alert was called from triage. Physical Exam Limited Triage Exam: VITALS: Vitals are noted on the nurse's note and reviewed by myself. Vital signs stable. GENERAL: White female who is coversive, but with hard time finding words. HEART: Regular rate and rhythm without murmurs gallops or rubs. LUNGS: Clear to auscultation bilaterally without wheezes, rales or rhonchi. No retractions or accessory muscle use. EXT: Decreased right arm strength Initial orders for labs and / or imaging were placed and patient was placed in the waiting area until a bed is available. Please see further documentation for the full ED course. MDM / Impression Impression Impression: Stroke-like symptoms
[2022-08-05] MEDS ORDERED: OPTIRAY 320 125ml IV ONE (17:05)
--- NOTE | 2022-08-05 17:15 | CT Scan Report ---
CT head/brain wo con CLINICAL HISTORY: neuro deficit, acute stroke suspected Technique: Contiguous axial CT images of the head were acquired from the base of the skull to the juarez christiano without intravenous contrast administration. Images were viewed in brain, [facility]. Automated dose lowering techniques and/or adjustment according to patient size were utilized for this exam. Comparison: Comparison is made to CT head 02/15/2022 Findings: The ventricles, basal cisterns, and cerebral sulci are normal. There is no acute intracranial hemorrh age or evidence of acute territorial infarction. Neither mass effect, shift of the midline structures , nor abnormal extra-axial fluid collections are shown. Imaged portions of the paranasal sinuses and mastoid air cells are clear. The orbits appear normal. There are no acute fractures of the calvaria or scalp swelling. Impression: No acute intracranial hemorrhage, no evidence of acute territorial infarction or other acute intracra nial disease process. ACT 112: Negative or not required by law. Electronically signed by: Arpan Schmidt M.D. 08/05/2022 5:14 PM
--- NOTE | 2022-08-05 17:26 | CT Scan Report ---
CT ANGIOGRAM OF THE BRAIN; CT ANGIOGRAM OF THE NECK CLINICAL HISTORY: Neurological deficit. Stroke like symptoms. Change in mental status. COMPARISON STUDY: Unenhanced CT of the brain performed concurrently on 08/05/2022. CT of the brain da [place] 02/15/2022. TECHNIQUE: Following the IV administration of 119 of Optiray 320, CT angiogram of the head and neck w as performed from the aortic arch to the vertex. Images are reviewed in the axial, sagittal, and hiwot nal planes. 3-D MIPS images are created and assessed. IV contrast was administered without complicati on. All measurements were calculated based on NASCET criteria. A dose lowering technique was utilize d adhering to the principles of ALARA. CT DOSE: 1141.25 mGy.cm FINDINGS: Brain parenchyma: The brain parenchyma is normal in appearance. There is no evidence of hemorrhage, m ass effect, or acute territorial ischemia noting angiographic phase technique. There is no evidence o f enhancing mass lesion on the angiogram phase images. The ventricles, sulci, and cisterns are normal in configuration. [place]-white matter differentiation is preserved. No extra-axial fluid collection is seen. Thoracic aorta: Visualized portions of the thoracic aorta are normal in caliber. The aortic arch demo nstrates standard 3-vessel anatomy. Right carotid arterial system: The right common carotid artery is widely patent, as are the right int ernal and external carotid arteries. Left carotid arterial system: The left common carotid artery is widely patent, as are the left internet technology manager al and external carotid arteries. Vertebral arteries: The vertebral arteries are widely patent bilaterally noting left-sided dominance. Subclavian arteries: Widely patent bilaterally. Intracranial vasculature: The internal carotid arteries are patent at the skull base, as are the ante rior and middle cerebral arteries bilaterally. The vertebrobasilar system and posterior cerebral felipe teo are widely patent. The left vertebral artery is dominant. There is no aneurysm, high-grade steno sis, or focal vessel cut off seen throughout the intracranial circulation. Jugular veins: Patent bilaterally. Dural sinuses: Patent. Lung apices: Emphysematous change is noted. Upper lobe lung parenchyma is otherwise clear as visualiz ed. Soft tissues: The visualized pharyngeal soft tissues are normal in appearance noting angiographic pha se technique. The oropharyngeal airway appears widely patent. The thyroid gland is atrophic versus celaya rgically absent. The salivary glands are normal in appearance. No cervical lymphadenopathy is seen. Skeletal structures: The calvarium appears intact. The cervical spine is within normal limits. Orbits: The bony orbits are intact. Orbital contents are normal as visualized. Sinuses and mastoids: The paranasal sinuses are clear. The mastoid air cells are well pneumatized. IMPRESSION: 1. There is no evidence of hemorrhage, mass effect, or acute territorial ischemia noting angiographic phase technique. 2. Unremarkable CT angiogram of the brain. 3. Unremarkable CT angiogram of the neck. 4. Emphysema. ACT 112: Negative or not required by law. Electronically signed by: Donnell Mayers M.D. 08/05/2022 5:24 PM
--- NOTE | 2022-08-05 17:30 | Emergency Department Note ---
Impression & Plan Stroke-like symptoms ED Provider Note INFORMANT: Patient ED PROVIDER(S): Torito Gonzalez MD CHIEF COMPLAINT: Right facial numbness PLAN: Disposition: Admitted Condition: Guarded Outpatient prescription management: none Referral: None MEDICAL DECISION MAKING: Patient presented to the emergency department because of right facial numbness. She also had right arm weakness. Patient was made a stroke alert. She was taken to CT imaging and CT as well as CT angiography of the head neck were performed. No acute process was noted per radiology. I did review the images. Patient was evaluated and had concerning findings for right facial numbness as well as right arm weakness. She was having some difficulty getting her words out. Patient had significant hypertension when she came in but her blood pressure did improve. Patient had a consultation placed with Dr. Guaman of [facility]. She evaluated the patient via telestroke and felt that the patient would benefit from TNK. Patient did consent to this. I did review the risks and benefits with the patient as did Dr. Guaman. Patient was in agreement. Patient was given TNK after discussion with hospital pharmacist. Patient did have an increase in her blood pressure and Dr. Guaman did asked for labetalol 20 mg. This was ordered. Patient was reassessed and was still having symptoms. I did consult with Dr. Adams of critical care medicine. Patient will be admitted to the ICU. Case was discussed with the hospitalist service, Dr. Samaniego. Patient was evaluated in the ER and admitted. Discussed with advertising agency manager After review of the information above and other included data, I feel the patient requires admission. Triage Nursing notes reviewed and agree them. Vital Signs: reviewed and remarkable for no significant abnormalities Prior /Outside records reviewed: none Differential diagnosis: CVA, TIA, Infection, dehydration, metabolic abnormality, hypo/hyperglycemia, electrolyte disturbance, anemia, hypoxia, cardiac sources, intracerebral event, toxicologic, neurologic, as well as other pathologies. Diagnostics, as interpreted by me: EC Lead ECG performed and revealed Normal sinus rhythm at 84, normal [place], QRS normal. No elevation or depression. No PACs or PVCs Cardiac Monitoring: Cardiac monitoring ordered by me: The patient was placed on continuous cardiac monitoring and observed. It revealed a normal sinus rhythm at 63 beats per minute without ectopy or evidence of dysrhythmia. Medical decision rules: none Imaging studies: CT and CT angiography as noted above. Negative. I refer you to the EMR for further details. HPI: The patient is a 52year old female who presents to the Emergency Room with complaints of right facial numbness. This started about 1 hour ago and is persisting right arm numbness developing as well. The patient also notes the following associated symptoms, difficulty finding words, blurry vision right side of the tongue is numb, headache. The patient has taken no medication for relieving factors. Current pain is rated as 6/10. Pt denies LOC, fevers, chills, diaphoresis, neck pain, chest pain, breathing difficulties, nausea, vomiting, abdominal pain, back pain, melena, hematochezia, urinary symptoms, weakness, lymphadenopathy, rash, or other complaints. PAST MEDICAL HISTORY: See Below, seizures PAST SURGICAL HISTORY: See Below, SOCIAL HISTORY: See Below, smoker HOME MEDICATIONS: See Below ALLERGIES: See Below VITALS: See Below PHYSICAL EXAMINATION: GENERAL: Awake, alert, anxious-appearing, in no distress HENT: Normocephalic, atraumatic. Oropharynx unremarkable. EYES: Normal conjunctiva. Sclera non-icteric. PERRLA. EOMI. NECK: Inspection normal. Non-tender. Supple. No nuchal rigidity. FROM. No masses. RESPIRATORY: Clear to auscultation. No wheezes. No rales. Normal respiratory effort. CARDIAC: Normal rate. Normal rhythm. No murmurs. No rubs. Extremities warm and well perfused. Pulses equal. No JVD. GI: Soft, non-distended. No tenderness to palpation. No rebound or guarding. No masses. RECTAL: Deferred. MUSCULOSKELETAL: Atraumatic. Chest examination reveals no tenderness. The back is symmetrical on inspection without obvious abnormality. There is no CVA tenderness to palpation. No joint edema. LOWER EXTREMITIES: Calves are equal size bilaterally and non-tender. No edema. No discoloration. NEURO: Normal sensorium. No sensory or motor deficits noted except for numbness in the right side of the face and right arm along with mild decreased operator technician strength in the right arm. Cranial nerves II through XII intact except for subjective right-sided facial numbness in V1, V2 and V3. No drift. Normal rapid alternating movement. Some difficulty with word finding SKIN: No rash or jaundice noted. CRITICAL CARE: I have personally spent greater than 40 minutes of critical care time in the direct management of this patient. This includes bedside care, interpretation of diagnostic studies, and testing, discussion with consultants, patient, and family members, and other required patient management activities. These minutes are in excess of all separately billable procedures. Past Med/Surg History Medical History Asthma Breast cancer Hypothyroidism GILBERTO on CPAP Seizure disorder VTE (venous thromboembolism) Surgical History History of lumpectomy History of wisdom tooth extraction Family History Other Cancer Social History Smoking Status: Current every day smoker Tobacco Type: Cigarettes Age Quit Using Tobacco: 49; Cigarettes Per Day: 1/2 PPD; Second Hand Exposure: Yes (partner is a "compulsive smoker"); Do You Dip or Chew Tobacco: No; Hx Alcohol Use: No Hx Substance Use: No Preferred Language: Jamaican Communication Ability: Effective Visual Impairment: No Limitations Hearing Ability: Normal Cable Spooler Required: No Beliefs That Will Affect Care: None marital status: Current Living Situation: Alone current occupational status: unemployed How many Children do You have: 0 How many Children do You have Comment: adopted-2 Feels Safe at Home: Yes Safety Concerns: Feels Safe At This Time Childhood Exposure to Second-Hand Smoke: No Diet: regular Dental Care, Regularly: No Physical Activity Frequency: Does not Exercise Seatbelt Use: always Sunscreen Use: Yes Assistive Devices: Contacts and Glasses Allergies Allergies Allergy/AdvReac Type Severity Reaction Status Date / Time ampicillin Allergy Severe Anaphylaxis Verified 08/05/22 17:31 bee venom protein (honey bee) Allergy Severe Anaphylaxis Verified 08/05/22 17:31 droperidol [From Inapsine] Allergy Severe TONGUE Verified 08/05/22 17:31 SWELLED, HIVES Penicillins Allergy Severe Anaphylaxis Verified 08/05/22 17:31 promethazine [From Phenergan] Allergy Intermediate Hives Verified 08/05/22 17:31 Home Meds Home Medications Medication Instructions Recorded Confirmed cyanocobalamin (vitamin B-12) 1,000 mcg PO DAILY 02/14/22 08/05/22 1,000 mcg tablet (Vitamin B-12) epinephrine 0.3 mg/0.3 mL 0.3 mg IM DIRECTED PRN Allergic 02/14/22 08/05/22 injection, auto-injector (EpiPen) Reaction ibuprofen 800 mg tablet 800 mg PO Q6H PRN Pain 02/14/22 08/05/22 azelastine 205.5 mcg (0.15 %) 1 spray intranasal BID 07/06/22 08/05/22 nasal spray cetirizine 10 mg capsule (Zyrtec) 10 mg PO DAILY PRN Congestion 07/06/22 08/05/22 albuterol sulfate 90 mcg/actuation 1 - 2 inh inhalation QID PRN 08/05/22 08/05/22 aerosol inhaler Shortness Of Breath zolpidem 5 mg tablet 5 mg PO HS 08/05/22 08/05/22 Previous Rx's Medication Instructions Recorded fluticasone 500 mcg-salmeterol 50 1 inh inhalation BID #1 ea 02/22/22 mcg/dose blistr powdr for inhalation (Advair Diskus) levothyroxine 200 mcg tablet 200 mcg PO QAM #30 tabs 02/22/22 levothyroxine 50 mcg tablet 50 mcg PO QAM #30 tabs 02/22/22 lamotrigine 100 mg tablet 100 mg PO BID #60 tabs 04/08/22 (Lamictal) albuterol sulfate 1.25 mg/3 mL 1.25 mg (3 mL) inhalation QID PRN 05/26/22 solution for nebulization shortness of breath or wheezing #90 mL levetiracetam 500 mg tablet 1,000 mg PO BID #360 tabs 06/01/22 (Keppra) naproxen 500 mg tablet 500 mg PO BID PRN pain #14 tabs 06/07/22 benzonatate 200 mg capsule 200 mg PO TID PRN cough #30 caps 07/06/22 montelukast 10 mg tablet 10 mg PO DAILY #30 tabs 07/06/22 Results & Data (ED) Vital Signs Vital Signs - 24 hr 08/05/22 16:55 08/05/22 17:27 08/05/22 17:24 Temperature 36.2 C L Temperature Source Temporal Artery Scan Pulse Rate 86 82 84 Pulse Rate [Left] Pulse Rate from SpO2 Sensor 84 Pulse Rhythm [Left] Pulse Strength [Left] Respiratory Rate 20 20 Respiratory Effort / Characteristics Non-Labored Spontaneous Respiratory Depth Normal Respiratory Pattern Blood Pressure 183/115 H 174/97 H Blood Pressure [Left Arm] Blood Pressure Mean 137 122 Blood Pressure Mean [Left Arm] Blood Pressure Position [Left Arm] Pulse Oximetry 99 97 Oxygen Delivery Method Room Air Room Air Sepsis Recent Fever Within 48 Hours No Sepsis New/Unexplained Change in Mental Status N/A Sepsis Action Taken by Nursing No Action Required 08/05/22 17:40 08/05/22 18:29 08/05/22 18:30 Temperature Temperature Source Pulse Rate 78 75 Pulse Rate [Left] Pulse Rate from SpO2 Sensor Pulse Rhythm [Left] Pulse Strength [Left] Respiratory Rate 22 18 Respiratory Effort / Characteristics Non-Labored Spontaneous Respiratory Depth Normal Respiratory Pattern Regular Blood Pressure 152/81 H 185/103 H Blood Pressure [Left Arm] 164/87 H Blood Pressure Mean 104 Blood Pressure Mean [Left Arm] 112 Blood Pressure Position [Left Arm] Sitting Pulse Oximetry 98 96 Oxygen Delivery Method Room Air Room Air Sepsis Recent Fever Within 48 Hours Sepsis New/Unexplained Change in Mental Status Sepsis Action Taken by Nursing 08/05/22 18:15 08/05/22 17:50 08/05/22 17:55 Temperature 36.9 C Temperature Source Oral Pulse Rate 76 78 Pulse Rate [Left] 75 Pulse Rate from SpO2 Sensor Pulse Rhythm [Left] Regular Pulse Strength [Left] Normal Respiratory Rate 18 18 16 Respiratory Effort / Characteristics Non-Labored Respiratory Depth Normal Respiratory Pattern Regular Blood Pressure 152/81 H 169/93 H Blood Pressure [Left Arm] 167/94 H Blood Pressure Mean 104 118 Blood Pressure Mean [Left Arm] 118 Blood Pressure Position [Left Arm] Lying Pulse Oximetry 96 96 Oxygen Delivery Method Room Air Room Air Sepsis Recent Fever Within 48 Hours Sepsis New/Unexplained Change in Mental Status Sepsis Action Taken by Nursing 08/05/22 18:01 08/05/22 18:06 08/05/22 18:11 Temperature Temperature Source Pulse Rate 74 78 75 Pulse Rate [Left] Pulse Rate from SpO2 Sensor Pulse Rhythm [Left] Pulse Strength [Left] Respiratory Rate 15 16 13 Respiratory Effort / Characteristics Respiratory Depth Respiratory Pattern Blood Pressure 158/125 H 178/105 H 139/101 H Blood Pressure [Left Arm] Blood Pressure Mean 136 129 113 Blood Pressure Mean [Left Arm] Blood Pressure Position [Left Arm] Pulse Oximetry 96 96 Oxygen Delivery Method Room Air Room Air Sepsis Recent Fever Within 48 Hours Sepsis New/Unexplained Change in Mental Status Sepsis Action Taken by Nursing 08/05/22 18:16 08/05/22 18:22 08/05/22 18:25 Temperature Temperature Source Pulse Rate 72 78 76 Pulse Rate [Left] Pulse Rate from SpO2 Sensor Pulse Rhythm [Left] Pulse Strength [Left] Respiratory Rate 17 19 26 H Respiratory Effort / Characteristics Respiratory Depth Respiratory Pattern Blood Pressure 167/94 H 193/132 H 185/103 H Blood Pressure [Left Arm] Blood Pressure Mean 118 152 130 Blood Pressure Mean [Left Arm] Blood Pressure Position [Left Arm] Pulse Oximetry Oxygen Delivery Method Sepsis Recent Fever Within 48 Hours Sepsis New/Unexplained Change in Mental Status Sepsis Action Taken by Nursing 08/05/22 18:30 08/05/22 18:31 08/05/22 18:35 Temperature Temperature Source Pulse Rate 75 82 64 Pulse Rate [Left] Pulse Rate from SpO2 Sensor 64 Pulse Rhythm [Left] Pulse Strength [Left] Respiratory Rate 17 15 18 Respiratory Effort / Characteristics Respiratory Depth Respiratory Pattern Blood Pressure 185/103 H 164/87 H 118/96 Blood Pressure [Left Arm] Blood Pressure Mean 130 112 103 Blood Pressure Mean [Left Arm] Blood Pressure Position [Left Arm] Pulse Oximetry 96 96 97 Oxygen Delivery Method Room Air Room Air Room Air Sepsis Recent Fever Within 48 Hours Sepsis New/Unexplained Change in Mental Status Sepsis Action Taken by Nursing 08/05/22 18:30 08/05/22 18:40 Temperature 36.9 C Temperature Source Oral Pulse Rate 63 Pulse Rate [Left] Pulse Rate from SpO2 Sensor 63 Pulse Rhythm [Left] Pulse Strength [Left] Respiratory Rate 17 Respiratory Effort / Characteristics Respiratory Depth Respiratory Pattern Blood Pressure Blood Pressure [Left Arm] Blood Pressure Mean Blood Pressure Mean [Left Arm] Blood Pressure Position [Left Arm] Pulse Oximetry 97 Oxygen Delivery Method Room Air Sepsis Recent Fever Within 48 Hours Sepsis New/Unexplained Change in Mental Status Sepsis Action Taken by Nursing Laboratory Data 08/05/22 17:28 08/05/22 17:28 Lab Results 08/05/22 08/05/22 08/05/22 Range/Units 17:28 17:28 17:28 WBC 11.68 H (4.8-10.8) K/ul RBC 3.88 L (4.20-5.40) M/uL Hgb 12.4 (12.0-16.0) g/dl Hct 36.7 L (37.0-47.0) % MCV 94.6 (80.0-100.0) fL MCH 32.0 (25.0-34.0) pg MCHC 33.8 (32.0-36.0) g/dL RDW Std Deviation 48.9 H (36.4-46.3) fL RDW Coeff of Domo 14.1 (11.5-14.5) % Plt Count 298 (130-400) K/uL MPV 10.1 (9.4-12.4) fL Immature Gran % (Auto) 0.9 % Neut % (Auto) 66.1 % Lymph % (Auto) 23.6 % Mckean % (Auto) 6.5 % Eos % (Auto) 2.6 % Baso % (Auto) 0.3 % Neut # (Auto) 7.72 H (1.40-6.50) K/uL Lymph # (Auto) 2.76 (1.2-3.4) K/uL Mckean # (Auto) 0.76 H (0.11-0.59) K/uL Eos # (Auto) 0.30 (0-0.50) K/uL Baso # (Auto) 0.04 (0-0.2) K/uL Immature Gran # (Auto) 0.10 (0.01-0.20) K/uL PT 10.6 (9.0-12.0) Seconds INR 1.0 (0.9-1.1) APTT 30.5 (21.0-31.0) Seconds PTT Ratio 1.1 Sodium (136-145) mmol/L Potassium (3.5-5.1) mmol/L Chloride (98-107) mmol/L Carbon Dioxide (21-32) mmol/L Anion Gap (3-11) BUN (6-23) mg/dl Creatinine (0.6-1.2) mg/dl Est Cr Clr Drug Dosing ml/min Est GFR ( Amer) ml/min Est GFR (Non-Af Amer) ml/min BUN/Creatinine Ratio (10-20) Glucose (70-99(Fasting)) mg/dl POC Glucose (70-99) mg/dl Calcium (8.6-10.3) mg/dl Magnesium (1.7-2.4) mg/dl Total Bilirubin (0.2-1.0) mg/dl AST (13-39) U/L ALT (7-52) U/L Alkaline Phosphatase (34-104) U/L Troponin I High Sens (0-14) pg/ml Total Protein (6.0-8.3) gm/dl Albumin (3.4-5.0) gm/dl Globulin (2.5-4.0) gm/dl Albumin/Globulin Ratio (0.9-2) TSH (0.300-4.500) uIu/ml Free T4 (0.61-1.60) ng/dl Anaplasma Smear See Comment Lyme Disease IgG Ab (Negative) Lyme Disease IgM Ab (Negative) Blood Type O Positive Antibody Screen NEGATIVE 08/05/22 08/05/22 08/05/22 Range/Units 17:28 17:28 17:28 WBC (4.8-10.8) K/ul RBC (4.20-5.40) M/uL Hgb (12.0-16.0) g/dl Hct (37.0-47.0) % MCV (80.0-100.0) fL MCH (25.0-34.0) pg MCHC (32.0-36.0) g/dL RDW Std Deviation (36.4-46.3) fL RDW Coeff of Domo (11.5-14.5) % Plt Count (130-400) K/uL MPV (9.4-12.4) fL Immature Gran % (Auto) % Neut % (Auto) % Lymph % (Auto) % Mckean % (Auto) % Eos % (Auto) % Baso % (Auto) % Neut # (Auto) (1.40-6.50) K/uL Lymph # (Auto) (1.2-3.4) K/uL Mckean # (Auto) (0.11-0.59) K/uL Eos # (Auto) (0-0.50) K/uL Baso # (Auto) (0-0.2) K/uL Immature Gran # (Auto) (0.01-0.20) K/uL PT (9.0-12.0) Seconds INR (0.9-1.1) APTT (21.0-31.0) Seconds PTT Ratio Sodium 138 (136-145) mmol/L Potassium 3.7 (3.5-5.1) mmol/L Chloride 106 (98-107) mmol/L Carbon Dioxide 25 (21-32) mmol/L Anion Gap 7 (3-11) BUN 11 (6-23) mg/dl Creatinine 0.63 (0.6-1.2) mg/dl Est Cr Clr Drug Dosing 146.9 ml/min Est GFR ( Amer) 119.5 ml/min Est GFR (Non-Af Amer) 103.1 ml/min BUN/Creatinine Ratio 17.5 (10-20) Glucose 117 H (70-99(Fasting)) mg/dl POC Glucose (70-99) mg/dl Calcium 9.8 (8.6-10.3) mg/dl Magnesium 2.0 (1.7-2.4) mg/dl Total Bilirubin 0.1 L (0.2-1.0) mg/dl AST 17 (13-39) U/L ALT 16 (7-52) U/L Alkaline Phosphatase 82 (34-104) U/L Troponin I High Sens 2.4 (0-14) pg/ml Total Protein 6.7 (6.0-8.3) gm/dl Albumin 4.3 (3.4-5.0) gm/dl Globulin 2.4 L (2.5-4.0) gm/dl Albumin/Globulin Ratio 1.8 (0.9-2) TSH 5.073 H (0.300-4.500) uIu/ml Free T4 0.55 L (0.61-1.60) ng/dl Anaplasma Smear Lyme Disease IgG Ab Negative (Negative) Lyme Disease IgM Ab Negative (Negative) Blood Type Antibody Screen 08/05/22 Range/Units 17:40 WBC (4.8-10.8) K/ul RBC (4.20-5.40) M/uL Hgb (12.0-16.0) g/dl Hct (37.0-47.0) % MCV (80.0-100.0) fL MCH (25.0-34.0) pg MCHC (32.0-36.0) g/dL RDW Std Deviation (36.4-46.3) fL RDW Coeff of Domo (11.5-14.5) % Plt Count (130-400) K/uL MPV (9.4-12.4) fL Immature Gran % (Auto) % Neut % (Auto) % Lymph % (Auto) % Mckean % (Auto) % Eos % (Auto) % Baso % (Auto) % Neut # (Auto) (1.40-6.50) K/uL Lymph # (Auto) (1.2-3.4) K/uL Mckean # (Auto) (0.11-0.59) K/uL Eos # (Auto) (0-0.50) K/uL Baso # (Auto) (0-0.2) K/uL Immature Gran # (Auto) (0.01-0.20) K/uL PT (9.0-12.0) Seconds INR (0.9-1.1) APTT (21.0-31.0) Seconds PTT Ratio Sodium (136-145) mmol/L Potassium (3.5-5.1) mmol/L Chloride (98-107) mmol/L Carbon Dioxide (21-32) mmol/L Anion Gap (3-11) BUN (6-23) mg/dl Creatinine (0.6-1.2) mg/dl Est Cr Clr Drug Dosing ml/min Est GFR ( Amer) ml/min Est GFR (Non-Af Amer) ml/min BUN/Creatinine Ratio (10-20) Glucose (70-99(Fasting)) mg/dl POC Glucose 114 H (70-99) mg/dl Calcium (8.6-10.3) mg/dl Magnesium (1.7-2.4) mg/dl Total Bilirubin (0.2-1.0) mg/dl AST (13-39) U/L ALT (7-52) U/L Alkaline Phosphatase (34-104) U/L Troponin I High Sens (0-14) pg/ml Total Protein (6.0-8.3) gm/dl Albumin (3.4-5.0) gm/dl Globulin (2.5-4.0) gm/dl Albumin/Globulin Ratio (0.9-2) TSH (0.300-4.500) uIu/ml Free T4 (0.61-1.60) ng/dl Anaplasma Smear Lyme Disease IgG Ab (Negative) Lyme Disease IgM Ab (Negative) Blood Type Antibody Screen Administered Medications Lamotrigine (Lamotrigine 100 Mg Tab) 100 mg PO BID MARIELOS Stop: 09/04/22 21:09 Last Admin: 08/05/22 22:16 Dose: Not Given Documented By: TG Levetiracetam (Levetiracetam 500 Mg Tab) 1,000 mg PO BID MARIELOS Stop: 09/04/22 21:09 Last Admin: 08/05/22 22:16 Dose: Not Given Documented By: TG Miscellaneous (Icu Protocol For Hyperglycemia) 1 each N/A ACHS MARIELOS Stop: 08/07/22 21:09 Last Admin: 08/05/22 22:38 Dose: Not Given Documented By: EMANUEL Discontinued Medications Gadobutrol (Gadobutrol 65ml Vial) 11.9 ml IV ONCE ONE Stop: 08/05/22 20:30 Last Admin: 08/05/22 20:25 Dose: 11.9 ml Documented By: KATHY Tenecteplase 25 mg/ Syringe 5 mls @ 60 mls/min IV NOW ONE; Protocol Stop: 08/05/22 18:01 Last Admin: 08/05/22 18:02 Dose: 60 mls/min Documented By: JIGNA Co-signed By: AAMIR Ioversol (Optiray 320 125ml) 119 ml IV ONCE ONE Stop: 08/05/22 17:06 Last Admin: 08/05/22 17:08 Dose: 119 ml Documented By: JT Labetalol HCl (Labetalol Hcl Iv 5 Mg/Ml 20ml) Confirm Administered Dose 20 mg IV .STK-MED ONE Stop: 08/05/22 18:28 Last Admin: 08/05/22 22:15 Dose: Not Given Documented By: EMANUEL Labetalol HCl (Labetalol Hcl Iv 5 Mg/Ml 20ml) 20 mg IV NOW STA Stop: 08/05/22 18:28 Last Admin: 08/05/22 18:29 Dose: 20 mg Documented By: NH Co-signed By: ALAN Labetalol HCl (Labetalol Hcl Iv 5 Mg/Ml 20ml) Confirm Administered Dose 10 mg IV .STK-MED ONE Stop: 08/05/22 18:29 Last Admin: 08/05/22 22:15 Dose: Not Given Documented By: TG Miscellaneous (Stat Iv) 1 each N/A NOW STA Stop: 08/05/22 17:50 Last Admin: 08/05/22 18:03 Dose: Not Given Documented By: NH Sodium Chloride (Sodium Chloride 0.9% 10ml Flush) 20 ml IV NOW STA Stop: 08/05/22 17:50 Last Admin: 08/05/22 18:02 Dose: 20 ml Documented By: JIGNA Imaging Data Radiologist's Impression: Head CT 08/05/22 16:59 CT head/brain wo con CLINICAL HISTORY: neuro deficit, acute stroke suspected Technique: Contiguous axial CT images of the head were acquired from the base of the skull to the vertex without intravenous contrast administration. Images were viewed in brain, subdural and bone windows. Automated dose lowering techniques and/or adjustment according to patient size were utilized for this exam. Comparison: Comparison is made to CT head 02/15/2022 Findings: The ventricles, basal cisterns, and cerebral sulci are normal. There is no acute intracranial hemorrhage or evidence of acute territorial infarction. Neither mass effect, shift of the midline structures, nor abnormal extra-axial fluid collections are shown. Imaged portions of the paranasal sinuses and mastoid air cells are clear. The orbits appear normal. There are no acute fractures of the calvaria or scalp swelling. Impression: No acute intracranial hemorrhage, no evidence of acute territorial infarction or other acute intracranial disease process. ACT 112: Negative or not required by law. Electronically signed by: Arpan Schmidt M.D. 08/05/2022 5:14 PM Head CTA 08/05/22 16:59 CT ANGIOGRAM OF THE BRAIN; CT ANGIOGRAM OF THE NECK CLINICAL HISTORY: Neurological deficit. Stroke like symptoms. Change in mental status. COMPARISON STUDY: Unenhanced CT of the brain performed concurrently on 08/05/2022. CT of the brain dated 02/15/2022. TECHNIQUE: Following the IV administration of 119 of Optiray 320, CT angiogram of the head and neck was performed from the aortic arch to the vertex. Images are reviewed in the axial, sagittal, and coronal planes. 3-D MIPS images are created and assessed. IV contrast was administered without complication. All measurements were calculated based on NASCET criteria. A dose lowering technique was utilized adhering to the principles of ALARA. CT DOSE: 1141.25 mGy.cm FINDINGS: Brain parenchyma: The brain parenchyma is normal in appearance. There is no evidence of hemorrhage, mass effect, or acute territorial ischemia noting angiographic phase technique. There is no evidence of enhancing mass lesion on the angiogram phase images. The ventricles, sulci, and cisterns are normal in configuration. [place]-white matter differentiation is preserved. No extra-axial fluid collection is seen. Thoracic aorta: Visualized portions of the thoracic aorta are normal in caliber. The aortic arch demonstrates standard 3-vessel anatomy. Right carotid arterial system: The right common carotid artery is widely patent, as are the right internal and external carotid arteries. Left carotid arterial system: The left common carotid artery is widely patent, as are the left internal and external carotid arteries. Vertebral arteries: The vertebral arteries are widely patent bilaterally noting left-sided dominance. Subclavian arteries: Widely patent bilaterally. Intracranial vasculature: The internal carotid arteries are patent at the skull base, as are the anterior and middle cerebral arteries bilaterally. The vertebrobasilar system and posterior cerebral arteries are widely patent. The left vertebral artery is dominant. There is no aneurysm, high-grade stenosis, or focal vessel cut off seen throughout the intracranial circulation. Jugular veins: Patent bilaterally. Dural sinuses: Patent. Lung apices: Emphysematous change is noted. Upper lobe lung parenchyma is otherwise clear as visualized. Soft tissues: The visualized pharyngeal soft tissues are normal in appearance noting angiographic phase technique. The oropharyngeal airway appears widely patent. The thyroid gland is atrophic versus surgically absent. The salivary glands are normal in appearance. No cervical lymphadenopathy is seen. Skeletal structures: The calvarium appears intact. The cervical spine is within normal limits. Orbits: The bony orbits are intact. Orbital contents are normal as visualized. Sinuses and mastoids: The paranasal sinuses are clear. The mastoid air cells are well pneumatized. IMPRESSION: 1. There is no evidence of hemorrhage, mass effect, or acute territorial ischemia noting angiographic phase technique. 2. Unremarkable CT angiogram of the brain. 3. Unremarkable CT angiogram of the neck. 4. Emphysema. ACT 112: Negative or not required by law. Electronically signed by: Donnell Mayers M.D. 08/05/2022 5:24 PM Neck CTA 08/05/22 16:59 CT ANGIOGRAM OF THE BRAIN; CT ANGIOGRAM OF THE NECK CLINICAL HISTORY: Neurological deficit. Stroke like symptoms. Change in mental status. COMPARISON STUDY: Unenhanced CT of the brain performed concurrently on 2022. CT of the brain dated 02/15/2022. TECHNIQUE: Following the IV administration of 119 of Optiray 320, CT angiogram of the head and neck was performed from the aortic arch to the vertex. Images are reviewed in the axial, sagittal, and coronal planes. 3-D MIPS images are c reated and assessed. IV contrast was administered without complication. All measurements were calculated based on NASCET criteria. A dose lowering technique was utilized adhering to the principles of ALARA. CT DOSE: 1141.25 mGy.cm FINDINGS: Brain parenchyma: The brain parenchyma is normal in appearance. There is no evid ence of hemorrhage, mass effect, or acute territorial ischemia noting angiographic phase technique. There is no evidence of enhancing mass lesion on the angiogram phase images. The ventricles, sulci, and cisterns are normal in configuration. [place]-white matter differentiation is preserved. No extra-axial fluid collection is seen. Thoracic aorta: Visualized portions of the thoracic aorta are normal in caliber. The aortic arch demonstrates standard 3-vessel anatomy. Right carotid arterial system: The right common carotid artery is widely patent, as are the right internal and external carotid arteries. Left carotid arterial system: The left common carotid artery is widely patent, as are the left internal and external carotid arteries. Vertebral arteries: The vertebral arteries are widely patent bilaterally noting left-sided dominance. Subclavian arteries: Widely patent bilaterally. Intracranial vasculature: The internal carotid arteries are patent at the skull base, as are the anterior and middle cerebral arteries bilaterally. The v ertebrobasilar system and posterior cerebral arteries are widely patent. The left vertebral artery is dominant. There is no aneurysm, high-grade stenosis, or focal vessel cut off seen throughout the intracranial circulation. Jugular veins: Patent bilaterally. Dural sinuses: Patent. Lung apices: Emphysematous change is noted. Upper lobe lung parenchyma is otherwise clear as visualized. Soft tissues: The visualized pharyngeal soft tissues are normal in appearance noting angiographic phase technique. The oropharyngeal airway appears widely patent. The thyroid gland is atrophic versus surgically absent. The salivary glands are normal in appearance. No cervical lymphadenopathy is seen. Skeletal structures: The calvarium appears intact. The cervical spine is within normal limits. Orbits: The bony orbits are intact. Orbital contents are normal as visualized. Sinuses and mastoids: The paranasal sinuses are clear. The mastoid air cells are well pneumatized. IMPRESSION: 1. There is no evidence of hemorrhage, mass effect, or acute territorial isch emia noting angiographic phase technique. 2. Unremarkable CT angiogram of the brain. 3. Unremarkable CT angiogram of the neck. 4. Emphysema. ACT 112: Negative or not required by law. Electronically signed by: Donnell Mayers M.D. 08/05/2022 5:24 PM Brain MRI 08/05/22 18:33 CR Exam(s): MRI HEAD W/WO Contrast IV Amt: 11.9 gadavist EXAM: MR Head Without and With Intravenous Contrast CLINICAL HISTORY: Reason for exam: Right sided weakness/numbness, expressive dysphasia. TECHNIQUE: Magnetic resonance images of the head/brain without and with intravenous contrast in multiple planes. CONTRAST: Patient received 11.9 Gadavist of IV contrast COMPARISON: CT head from August 05, 2022 FINDINGS: Brain: Unremarkable. No hemorrhage. No areas of diffusion restriction are seen to indicate acute stroke. Ventricles: Unremarkable. No ventriculomegaly. Bones/joints: There is a 4 mm focus of enhancement in the right paramidline central buzz. No signal abnormality is seen in the location on the remaining pulse sequences. No susceptibility artifact is identified. Sinuses: Unremarkable as visualized. No acute sinusitis. Mastoid air cells: Unremarkable as visualized. No mastoid effusion. Orbits: Unremarkable as visualized. Other findings: This is consistent with a small capillary telangiectasia. IMPRESSION: 1. No areas of diffusion restriction are seen to indicate acute stroke. 2. There is a 4 mm focus of enhancement in the right paramidline central buzz. No signal abnormality is seen in the location on the remaining pulse sequences. No susceptibility artifact is identified in this location. Communications: Call Doctor Stroke Electronically signed by: Addy Samson MD 08/05/22 21:18 PM Discharge Plan Visit Data Chief Complaint: Stroke/CVA Symptoms Stated Complaint: FACIAL NUMBNESS, WEAKNESS, SPEECH OFF, OFF BALANCE ED Provider: Torito Gonzalez Discharge Problem: Stroke-like symptoms Patient Disposition: Admitted As Inpatient Discharge Instructions Interventions: ED Discharge Assessment Last Done: 08/05/22 20:30
[2022-08-05 17:41] LABS: Basophils # (auto) 0.04 K/uL (0-0.2); Basophils % (auto) 0.3 %; Eosinophils % (auto) 2.6 %; Hematocrit (blood only) 36.7 % (37.0-47.0); Hemoglobin 12.4 g/dl (12.0-16.0); Immature Granulocytes % (auto) 0.9 %; Lymphocytes # (auto) 2.76 K/uL (1.2-3.4); Lymphocytes % (auto) 23.6 %; Mean Corpuscular Hgb Conc 33.8 g/dL (32.0-36.0); Mean Corpuscular Volume 94.6 fL (80.0-100.0); Mean Platelet Volume 10.1 fL (9.4-12.4); Monocytes # (auto) 0.76 K/uL (0.11-0.59); Monocytes % (auto) 6.5 %; Neutrophils # (auto) 7.72 K/uL (1.40-6.50); Neutrophils % (auto) 66.1 %; Platelet Count 298 K/uL (130-400); RDW Coefficient of Variation 14.1 % (11.5-14.5); RDW Standard Deviation 48.9 fL (36.4-46.3); Red Blood Count 3.88 M/uL (4.20-5.40); White Blood Count 11.68 K/ul (4.8-10.8)
[2022-08-05] MEDS ORDERED: SODIUM CHLORIDE 0.9% 10ML FLUSH IV STA (17:49)
[2022-08-05] MEDS ORDERED: STAT IV STA (17:49)
[2022-08-05 17:54] LABS: Partial Thromboplastin Ratio 1.1; Partial Thromboplastin Time 30.5 Seconds (21.0-31.0); Prothrombin Time 10.6 Seconds (9.0-12.0)
[2022-08-05] MEDS ORDERED: TENECTEPLASE 25 MG in SYRINGE 0 ML IV ONE (18:00)
[2022-08-05] MEDS ORDERED: No Aspirin within 24hrs of THROMBOLYTIC-Stroke PO SCH (18:00)
[2022-08-05 18:03] LABS: Albumin Globulin Ratio 1.8 (0.9-2); Albumin Level 4.3 gm/dl (3.4-5.0); BUN Creatinine Ratio 17.5 (10-20); Bilirubin,Total 0.1 mg/dl (0.2-1.0); Calcium 9.8 mg/dl (8.6-10.3); Creatinine Clr Calc Pharmacy 146.9 ml/min; Est GFR (African American) 119.5 ml/min; Est GFR (Non-African American) 103.1 ml/min; Globulin 2.4 gm/dl (2.5-4.0); Potassium 3.7 mmol/L (3.5-5.1); Total Protein 6.7 gm/dl (6.0-8.3)
[2022-08-05 18:08] LABS: Troponin I High Sensitivity 2.4 pg/ml (0-14)
--- NOTE | 2022-08-05 18:23 | History & Physical Report ---
Date of Service August 05, 2022 Assessment & Plan (1) Stroke-like symptoms: Plan: CVA vs. complex migraine vs hypertensive encephalopathy, low suspicion of seizure Brain MRI w/wo IV contrast TTE Repeat CT head in 24 hours No anticoagulation/ASA for 24 hours Admit to ICU s/p TNK Consult neurology (2) Seizure disorder: Plan: Continue levetiracetam and lemotrigine (3) Severe obstructive sleep apnea: Plan: CPAP HS (4) Asthma: Plan: Advair Diskus BID (5) Hypothyroidism: Plan: TSH 40.6 in February - suspected not to be taking levothyroxine at that time TSH added to initial labs Plan VTE Prophylaxis - deferred due to TNK Diet - NPO Disposition - admit to ICU Admission and Anticipated Discharge Date Admission Date: August 05, 2022 History of Present Illness Chief Complaint: Right sided weakness and difficulty speaking Primary Care Provider: Rah Triana DO Aide Knott is a 52 year old female who presents to the ER with right extremity weakness, right facial/extremity numbness, right eye vision blurring and difficulty speaking. Sudden onset of symptoms around 16:15 today. No history of stroke although she does have a history of epilepsy for which she takes levetiracetam and lamotrigine and migraines. No headache with these symptoms today. No significant change in symptoms since onset. Telestroke seen in the ER and she is now s/p TNK given. No slurring of speech but she is having difficulty finding the right words. No changes in hearing. She notably was admitted in February 14 to for a seizure after moving to [place] and being off her antiseizure medications. Allergies Allergy/AdvReac Type Severity Reaction Status Date / Time ampicillin Allergy Severe Anaphylaxis Verified 08/05/22 17:31 bee venom protein (honey bee) Allergy Severe Anaphylaxis Verified 08/05/22 17:31 droperidol [From Inapsine] Allergy Severe TONGUE Verified 08/05/22 17:31 SWELLED, HIVES Penicillins Allergy Severe Anaphylaxis Verified 08/05/22 17:31 promethazine [From Phenergan] Allergy Intermediate Hives Verified 08/05/22 17:31 Home Medications Medication Instructions Recorded Confirmed Type cyanocobalamin (vitamin B-12) 1,000 mcg PO DAILY 02/14/22 08/05/22 History 1,000 mcg tablet (Vitamin B-12) epinephrine 0.3 mg/0.3 mL 0.3 mg IM DIRECTED PRN Allergic 02/14/22 08/05/22 History injection, auto-injector (EpiPen) Reaction ibuprofen 800 mg tablet 800 mg PO Q6H PRN Pain 02/14/22 08/05/22 History fluticasone 500 mcg-salmeterol 50 1 inh inhalation BID #1 ea 02/22/22 08/05/22 Rx mcg/dose blistr powdr for inhalation (Advair Diskus) levothyroxine 200 mcg tablet 200 mcg PO QAM #30 tabs 02/22/22 08/05/22 Rx levothyroxine 50 mcg tablet 50 mcg PO QAM #30 tabs 02/22/22 08/05/22 Rx lamotrigine 100 mg tablet 100 mg PO BID #60 tabs 04/08/22 08/05/22 Rx (Lamictal) albuterol sulfate 1.25 mg/3 mL 1.25 mg (3 mL) inhalation QID PRN 05/26/22 08/05/22 Rx solution for nebulization shortness of breath or wheezing #90 mL levetiracetam 500 mg tablet 1,000 mg PO BID #360 tabs 06/01/22 08/05/22 Rx (Keppra) naproxen 500 mg tablet 500 mg PO BID PRN pain #14 tabs 06/07/22 08/05/22 Rx azelastine 205.5 mcg (0.15 %) 1 spray intranasal BID 07/06/22 08/05/22 History nasal spray benzonatate 200 mg capsule 200 mg PO TID PRN cough #30 caps 07/06/22 08/05/22 Rx cetirizine 10 mg capsule (Zyrtec) 10 mg PO DAILY PRN Congestion 07/06/22 08/05/22 History montelukast 10 mg tablet 10 mg PO DAILY #30 tabs 07/06/22 08/05/22 Rx albuterol sulfate 90 mcg/actuation 1 - 2 inh inhalation QID PRN 08/05/22 08/05/22 History aerosol inhaler Shortness Of Breath zolpidem 5 mg tablet 5 mg PO HS 08/05/22 08/05/22 History Past Med/Surg History Medical History Asthma Breast cancer Hypothyroidism GILBERTO on CPAP Seizure disorder VTE (venous thromboembolism) Surgical History History of lumpectomy History of wisdom tooth extraction Family History Other Cancer Social History Smoking Status: Current every day smoker Tobacco Type: Cigarettes Age Quit Using Tobacco: 49; Cigarettes Per Day: 1/2 PPD; Second Hand Exposure: Yes (partner is a "compulsive smoker"); Do You Dip or Chew Tobacco: No; Hx Alcohol Use: No Hx Substance Use: No Preferred Language: German Communication Ability: Effective Visual Impairment: No Limitations Hearing Ability: Normal Bingo Caller Required: No Beliefs That Will Affect Care: None marital status: Current Living Situation: Alone current occupational status: unemployed How many Children do You have: 0 How many Children do You have Comment: adopted-2 Feels Safe at Home: Yes Safety Concerns: Feels Safe At This Time Childhood Exposure to Second-Hand Smoke: No Diet: regular Dental Care, Regularly: No Physical Activity Frequency: Does not Exercise Seatbelt Use: always Sunscreen Use: Yes Assistive Devices: Contacts and Glasses Review of Systems Review of Systems: All systems reviewed & are unremarkable except as noted in HPI & below Physical Exam Constitutional: WD/WN, vitals as above Eyes: PERRL, conjunctivae normal, anicteric sclerae right eye visual acuity loss/blurring ENMT: external ear and nose normal, oropharynx normal Respiratory: normal respiratory effort, lungs clear to auscultation Cardiovascular: RRR, no murmur, no edema Gastrointestinal (Abdomen): normal bowel sounds, soft, nontender, no hepatosplenomegaly Skin: no rashes, warm and dry Neurologic: moves all extremities, + focal motor deficit (Right sided MRC 3/5 throughout) and awake; not confused Speech / Cognition: + expressive aphasia (no slurring of speech, speech slow but able to get the right words the deshaun); no receptive aphasia Motor/Sensory: + sensory deficit (right side of face and all right sided extremities) Cranial Nerves: PERRL, EOM intact bilaterally, normal facial strength, tongue midline, able to rotate head bilaterally, able to elevate shoulders bilaterally, no nystagmus and symmetric palate elevation Psychiatric: A+Ox3, euthymic affect Results & Data Results & Data Vital Signs (Past 12 Hours) Vital Signs Temp Pulse Resp BP Pulse Ox O2 Del Method 08/05/22 17:40 78 22 152/81 H 98 Room Air 08/05/22 17:24 84 20 174/97 H 97 Room Air 08/05/22 17:27 82 08/05/22 16:55 36.2 C L 86 20 183/115 H 99 Room Air Laboratory Results Abnormal lab results 08/05/22 08/05/22 08/05/22 Range/Units 17:28 17:28 17:40 WBC 11.68 H (4.8-10.8) K/ul RBC 3.88 L (4.20-5.40) M/uL Hct 36.7 L (37.0-47.0) % RDW Std Deviation 48.9 H (36.4-46.3) fL Neut # (Auto) 7.72 H (1.40-6.50) K/uL [place] # (Auto) 0.76 H (0.11-0.59) K/uL Glucose 117 H (70-99(Fasting)) mg/dl POC Glucose 114 H (70-99) mg/dl Total Bilirubin 0.1 L (0.2-1.0) mg/dl Globulin 2.4 L (2.5-4.0) gm/dl Diagnostic Findings CT head/brain wo con CLINICAL HISTORY: neuro deficit, acute stroke suspected Technique: Contiguous axial CT images of the head were acquired from the base of the skull to the vertex without intravenous contrast administration. Images were viewed in brain, subdural and bone windows. Automated dose lowering techniques and/or adjustment according to patient size were utilized for this exam. Comparison: Comparison is made to CT head 02/15/2022 Findings: The ventricles, basal cisterns, and cerebral sulci are normal. There is no acute intracranial hemorrhage or evidence of acute territorial infarction. Neither mass effect, shift of the midline structures, nor abnormal extra-axial fluid collections are shown. Imaged portions of the paranasal sinuses and mastoid air cells are clear. The orbits appear normal. There are no acute fractures of the calvaria or scalp swelling. Impression: No acute intracranial hemorrhage, no evidence of acute territorial infarction or other acute intracranial disease process. CT ANGIOGRAM OF THE BRAIN; CT ANGIOGRAM OF THE NECK CLINICAL HISTORY: Neurological deficit. Stroke like symptoms. Change in mental status. COMPARISON STUDY: Unenhanced CT of the brain performed concurrently on 08/05/2022. CT of the brain dated 02/15/2022. TECHNIQUE: Following the IV administration of 119 of Optiray 320, CT angiogram of the head and neck was performed from the aortic arch to the vertex. Images are reviewed in the axial, sagittal, and coronal planes. 3-D MIPS images are created and assessed. IV contrast was administered without complication. All measurements were calculated based on NASCET criteria. A dose lowering technique was utilized adhering to the principles of ALARA. CT DOSE: 1141.25 mGy.cm FINDINGS: Brain parenchyma: The brain parenchyma is normal in appearance. There is no evidence of hemorrhage, mass effect, or acute territorial ischemia noting angiographic phase technique. There is no evidence of enhancing mass lesion on the angiogram phase images. The ventricles, sulci, and cisterns are normal in configuration. [place]-white matter differentiation is preserved. No extra-axial fluid collection is seen. Thoracic aorta: Visualized portions of the thoracic aorta are normal in caliber. The aortic arch demonstrates standard 3-vessel anatomy. Right carotid arterial system: The right common carotid artery is widely patent, as are the right internal and external carotid arteries. Left carotid arterial system: The left common carotid artery is widely patent, as are the left internal and external carotid arteries. Vertebral arteries: The vertebral arteries are widely patent bilaterally noting left-sided dominance. Subclavian arteries: Widely patent bilaterally. Intracranial vasculature: The internal carotid arteries are patent at the skull base, as are the anterior and middle cerebral arteries bilaterally. The vertebrobasilar system and posterior cerebral arteries are widely patent. The left vertebral artery is dominant. There is no aneurysm, high grade stenosis, or focal vessel cut off seen throughout the intracranial circulation. Jugular veins: Patent bilaterally. Dural sinuses: Patent. Lung apices: Emphysematous change is noted. Upper lobe lung parenchyma is otherwise clear as visualized. Soft tissues: The visualized pharyngeal soft tissues are normal in appearance noting angiographic phase technique. The oropharyngeal airway appears widely patent. The thyroid gland is atrophic versus surgically absent. The salivary glands are normal in appearance. No cervical lymphadenopathy is seen. Skeletal structures: The calvarium appears intact. The cervical spine is within normal limits. Orbits: The bony orbits are intact. Orbital contents are normal as visualized. Sinuses and mastoids: The paranasal sinuses are clear. The mastoid air cells are well pneumatized. IMPRESSION: 1. There is no evidence of hemorrhage, mass effect, or acute territorial ischemia noting angiographic phase technique. 2. Unremarkable CT angiogram of the brain. 3. Unremarkable CT angiogram of the neck. 4. Emphysema. Medications Administered ER Medications Given: Tenecteplase 25mg IV ECG Rate (beats per minute): 84 Rhythm: normal sinus Findings: no acute ischemic change Comparison ECG Date: from (February 14, 2022) Change: no significant change Code Status & VTE Plan Code Status Full VTE Prophylaxis Plan VTE Prophylaxis will be ordered: No PG Care Time/CCT Total # of Minutes Spent Total Time Spent with Patient: Total time spent is greater than 50% in coordination of care (as documented) at patient's floor/unit and/or counseling patient: Coding Level of Care Code 04022 INT INP/OBS CARE 3/75MIN Diagnoses Stroke-like symptoms R29.90 Seizure disorder G40.909 Severe obstructive sleep apnea G47.33 Asthma J45.909 Hypothyroidism E03.9
[2022-08-05 18:25] LABS: Lyme Ab IgG w/WB Rflx Negative (Negative); Lyme Ab IgM w/WB Rflx Negative (Negative)
[2022-08-05] MEDS ORDERED: LABETALOL HCL IV 5 MG/ML 20ML IV STA (18:27)
[2022-08-05] MEDS ORDERED: LABETALOL HCL IV 5 MG/ML 20ML IV ONE ×2 (18:27→18:28)
[2022-08-05 19:00] LABS: Adenovirus PCR Not Detected (NotDetected); Bordetella parapertussis PCR Not Detected (NotDetected); Bordetella pertussis PCR Not Detected (NotDetected); Chlamydia pneumoniae PCR Not Detected (NotDetected); Coronavirus 229E PCR Not Detected (NotDetected); Coronavirus CoV-2 (COVID19)PCR Not Detected (NotDetected); Coronavirus HKU1 PCR Not Detected (NotDetected); Coronavirus NL63 PCR Not Detected (NotDetected); Coronavirus OC43PCR Not Detected (NotDetected); Human Metapneumovirus PCR Not Detected (NotDetected); Influenza A PCR Not Detected (NotDetected); Influenza B PCR Not Detected (NotDetected); Mycoplasma pneumoniae PCR Not Detected (NotDetected); Parainfluenza Virus 1 PCR Not Detected (NotDetected); Parainfluenza Virus 2 PCR Not Detected (NotDetected); Parainfluenza Virus 3 PCR Not Detected (NotDetected); Parainfluenza Virus 4 PCR Not Detected (NotDetected); Respiratory Syncytial VirusPCR Not Detected (NotDetected); Rhinovirus/Enterovirus PCR Not Detected (NotDetected)
[2022-08-05] MEDS ORDERED: GADOBUTROL 65ML VIAL IV ONE (20:29)
[2022-08-05 21:06] LABS: Thyroid Stimulating Hormone 5.073 uIu/ml (0.300-4.500)
[2022-08-05] MEDS ORDERED: PHARMACIST DISCHARGE MED REC CONSULT PRN (21:10)
[2022-08-05] MEDS ORDERED: LABETALOL HCL IV 5 MG/ML 20ML IV PRN (21:10)
[2022-08-05] MEDS ORDERED: levETIRAcetam 500 MG TAB PO SCH (21:10)
--- NOTE | 2022-08-05 21:19 | Magnetic Resonance Report ---
Exam(s): MRI HEAD W/WO Contrast IV Amt: 11.9 gadavist EXAM: MR Head Without and With Intravenous Contrast CLINICAL HISTORY: Reason for exam: Right sided weakness/numbness, expressive dysphasia. TECHNIQUE: Magnetic resonance images of the head/brain without and with intravenous contrast in multiple planes. CONTRAST: Patient received 11.9 Gadavist of IV contrast COMPARISON: CT head from August 05, 2022 FINDINGS: Brain: Unremarkable. No hemorrhage. No areas of diffusion restriction are seen to indicate acute stroke. Ventricles: Unremarkable. No ventriculomegaly. Bones/joints: There is a 4 mm focus of enhancement in the right paramidline central buzz. No signal abnormality is seen in the location on the remaining pulse sequences. No susceptibility artifact is identified. Sinuses: Unremarkable as visualized. No acute sinusitis. Mastoid air cells: Unremarkable as visualized. No mastoid effusion. Orbits: Unremarkable as visualized. Other findings: This is consistent with a small capillary telangiectasia. IMPRESSION: 1. No areas of diffusion restriction are seen to indicate acute stroke. 2. There is a 4 mm focus of enhancement in the right paramidline central buzz. No signal abnormality is seen in the location on the remaining pulse sequences. No susceptibility artifact is identified in this location. Communications: Call Doctor Stroke Electronically signed by: Addy Samson MD 08/05/22 21:18 PM
[2022-08-05] MEDS ORDERED: No Aspirin within 24hrs of THROMBOLYTIC-Stroke SCH (21:30)
[2022-08-05 21:38] LABS: T4 Free Thyroxine 0.55 ng/dl (0.61-1.60)
[2022-08-05] MEDS: lamoTRIgine 100 MG TAB PO SCH (22:16)
[2022-08-05] MEDS: ICU Protocol for HYPERglycemia SCH (22:38)
--- NOTE | 2022-08-05 23:45 | Critical Care Consultation ---
Date of Consultation August 05, 2022 Assessment & Plan (1) Stroke-like symptoms: Most likely CVA versus complex migraine. CT head, CTA head and neck without acute findings. MRI without evidence of acute stroke - Received TNKase at 1810. Admitted to ICU for 24-hour monitoring per protocol. Follow-up repeat CT at 24-hour makayla - Follow-up Hemoglobin A1c and lipid panel - Follow-up TTE -N.p.o. pending speech eval - Neurology consulted. Follow-up recommendations (2) Headache: No evidence on CT imaging to indicate hemorrhagic stroke. Is likely that the patient may be experiencing migraine with Aura? Tylenol as needed for now. We will follow-up neurology recommendations (3) GILBERTO on CPAP: Continue CPAP at bedtime (4) Asthma: No issue at this time. Continue home nebs (5) Hypothyroidism: Continue Synthroid when Taking p.o. (6) Seizure disorder: Will convert Keppra p.o. to IV for the time being pending speech eval. Lamictal on hold. Follow-up neurology recommendations History of Present Illness Attending Physician: Tye Samaniego MD History of Present Illness Patient is a 52-year-old female with a past medical history of seizure disorder, DVT, hypothyroidism, asthma, GILBERTO, breast cancer who presented to the emergency department earlier this evening after experiencing sudden onset of right-sided weakness, right face numbness/tingling, and difficulty speaking, And headache. This happened at [address] head was negative for acute intracranial findings. CTA head and neck were also unremarkable. Patient was evaluated by teleneurology and determined to be candidate for thrombolytics, and received TNKase at 1810. On arrival to the ICU the patient is alert and oriented without acute distress. She is currently complaining of headache 4/10 which Was also noted on arrival to the emergency department. Patient states that her speech feels improved, but she is still having tingling and some numbness to the right upper extremity and right side of her face. She has no facial droop or dysarthria, And expressive aphasia appears to be minimal at this point. She denies dizziness, loss of consciousness, changes in vision, recent illness or fevers, congestion, cough, shortness of breath, abdominal pain, nausea vomiting or diarrhea, swelling in hands or feet, changes in urinary stream or frequency, or changes in gait. On evaluation in the ICU the patient was complaining of intermittent chest pain. EKG did not show any abnormalities or ST elevations or depression. She remains hemodynamically stable, currently on room air. She did undergo MRI of the head which Did not show evidence of acute stroke, did show 4 mm focus of enhancement in the right paramidline central buzz. Patient to remain in ICU for 24-hour monitoring post TNKase per protocol. Allergies Allergy/AdvReac Type Severity Reaction Status Date / Time ampicillin Allergy Severe Anaphylaxis Verified 08/05/22 17:31 bee venom protein (honey bee) Allergy Severe Anaphylaxis Verified 08/05/22 17:31 droperidol [From Inapsine] Allergy Severe TONGUE Verified 08/05/22 17:31 SWELLED, HIVES Penicillins Allergy Severe Anaphylaxis Verified 08/05/22 17:31 promethazine [From Phenergan] Allergy Intermediate Hives Verified 08/05/22 17:31 Home Medications Medication Instructions Recorded Confirmed Type cyanocobalamin (vitamin B-12) 1,000 mcg PO DAILY 02/14/22 08/05/22 History 1,000 mcg tablet (Vitamin B-12) epinephrine 0.3 mg/0.3 mL 0.3 mg IM DIRECTED PRN Allergic 02/14/22 08/05/22 History injection, auto-injector (EpiPen) Reaction ibuprofen 800 mg tablet 800 mg PO Q6H PRN Pain 02/14/22 08/05/22 History fluticasone 500 mcg-salmeterol 50 1 inh inhalation BID #1 ea 02/22/22 08/05/22 Rx mcg/dose blistr powdr for inhalation (Advair Diskus) levothyroxine 200 mcg tablet 200 mcg PO QAM #30 tabs 02/22/22 08/05/22 Rx levothyroxine 50 mcg tablet 50 mcg PO QAM #30 tabs 02/22/22 08/05/22 Rx lamotrigine 100 mg tablet 100 mg PO BID #60 tabs 04/08/22 08/05/22 Rx (Lamictal) albuterol sulfate 1.25 mg/3 mL 1.25 mg (3 mL) inhalation QID PRN 05/26/22 08/05/22 Rx solution for nebulization shortness of breath or wheezing #90 mL levetiracetam 500 mg tablet 1,000 mg PO BID #360 tabs 06/01/22 08/05/22 Rx (Keppra) naproxen 500 mg tablet 500 mg PO BID PRN pain #14 tabs 06/07/22 08/05/22 Rx azelastine 205.5 mcg (0.15 %) 1 spray intranasal BID 07/06/22 08/05/22 History nasal spray benzonatate 200 mg capsule 200 mg PO TID PRN cough #30 caps 07/06/22 08/05/22 Rx cetirizine 10 mg capsule (Zyrtec) 10 mg PO DAILY PRN Congestion 07/06/22 08/05/22 History montelukast 10 mg tablet 10 mg PO DAILY #30 tabs 07/06/22 08/05/22 Rx albuterol sulfate 90 mcg/actuation 1 - 2 inh inhalation QID PRN 08/05/22 08/05/22 History aerosol inhaler Shortness Of Breath zolpidem 5 mg tablet 5 mg PO HS 08/05/22 08/05/22 History Patient History Medical History Asthma Breast cancer Hypothyroidism GILBERTO on CPAP Seizure disorder VTE (venous thromboembolism) Surgical History History of lumpectomy History of wisdom tooth extraction Family History Other Cancer Social History Smoking Status: Current every day smoker Tobacco Type: Cigarettes Age Quit Using Tobacco: 49; Cigarettes Per Day: 1/2 PPD; Second Hand Exposure: Yes (partner is a "compulsive smoker"); Do You Dip or Chew Tobacco: No; Hx Alcohol Use: No Hx Substance Use: No Preferred Language: Frisian Communication Ability: Effective Visual Impairment: No Limitations Hearing Ability: Normal 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 Beliefs That Will Affect Care: None marital status: Current Living Situation: Alone current occupational status: unemployed How many Children do You have: 0 How many Children do You have Comment: adopted-2 Feels Safe at Home: Yes Safety Concerns: Feels Safe At This Time Childhood Exposure to Second-Hand Smoke: No Diet: regular Dental Care, Regularly: No Physical Activity Frequency: Does not Exercise Seatbelt Use: always Sunscreen Use: Yes Assistive Devices: Contacts and Glasses Review of Systems Review of Systems: All systems reviewed & are unremarkable except as noted in HPI & below Physical Exam Constitutional: cooperative and comfortable; no acute distress Eyes: PERRL, conjunctivae normal, anicteric sclerae ENMT: external ear and nose normal, oropharynx normal Neck: trachea midline, no thyromegaly Respiratory: normal respiratory effort, lungs clear to auscultation Cardiovascular: RRR, no murmur, no edema Heart Sounds: normal S1 and normal S2; no murmur Extremities: normal capillary refill Gastrointestinal (Abdomen): normal bowel sounds, soft, nontender, no hepatosplenomegaly Musculoskeletal: no cyanosis or clubbing, extremities motor strength 5/5 Skin: no rashes, warm and dry Neurologic: PERRL, EOMI, accommodation nl, no face palsy, no dysarthria Speech / Cognition: + expressive aphasia Psychiatric: Orientation: oriented x 3 Eye Contact: good eye contact Mood: + anxious mood Results & Data Results & Data Vital Signs (Past 12 Hours) Vital Signs Temp Pulse Pulse Resp BP BP Pulse Ox 08/05/22 23:30 69 19 96 08/05/22 23:30 114/71 08/05/22 23:07 98 08/05/22 23:07 129/87 08/05/22 23:01 136/72 08/05/22 23:01 67 14 97 08/05/22 23:00 65 16 97 08/05/22 22:30 63 14 96 08/05/22 22:08 65 17 95 08/05/22 22:08 141/91 H 08/05/22 22:00 72 16 97 08/05/22 21:56 66 15 97 08/05/22 21:56 135/105 H 08/05/22 21:41 69 14 96 08/05/22 21:41 162/99 H 08/05/22 21:30 67 19 97 08/05/22 21:01 64 18 97 08/05/22 21:01 131/92 08/05/22 21:00 64 18 131/92 97 08/05/22 20:51 78 16 137/73 94 08/05/22 20:48 74 17 96 08/05/22 19:31 37.2 C 62 19 114/78 08/05/22 23:34 36.5 C 67 20 114/71 97 08/05/22 23:04 36.6 C 69 13 129/87 96 08/05/22 20:42 08/05/22 21:10 68 08/05/22 22:34 36.5 C 76 18 166/87 H 98 08/05/22 22:04 36.6 C 63 12 141/91 H 96 08/05/22 21:34 36.6 C 78 16 162/99 H 95 08/05/22 21:04 36.5 C 68 13 137/73 98 08/05/22 21:14 36.5 C 68 19 117/73 95 08/05/22 20:00 63 16 129/71 96 08/05/22 20:30 62 16 115/60 95 08/05/22 19:30 62 14 98 08/05/22 19:25 128/67 08/05/22 19:25 63 19 08/05/22 19:22 150/80 H 08/05/22 19:22 61 12 98 08/05/22 19:20 61 16 98 08/05/22 19:15 64 18 98 08/05/22 19:11 128/71 08/05/22 19:11 64 15 97 08/05/22 19:10 68 22 97 08/05/22 19:05 145/104 H 08/05/22 19:05 68 12 97 08/05/22 19:01 68 19 08/05/22 19:01 144/87 H 08/05/22 19:00 66 19 98 08/05/22 18:58 181/102 H 08/05/22 18:58 73 20 98 08/05/22 18:50 69 21 97 08/05/22 18:50 141/80 H 08/05/22 18:46 75 15 98 08/05/22 18:46 150/80 H 08/05/22 18:42 64 18 98 08/05/22 18:42 164/97 H 08/05/22 18:40 63 17 97 08/05/22 19:04 64 16 144/87 H 97 08/05/22 18:45 36.9 C 75 18 150/80 H 96 08/05/22 18:30 36.9 C 06//23 18:35 64 18 118/96 97 08/05/22 18:31 82 15 164/87 H 96 08/05/22 18:30 75 17 185/103 H 96 08/05/22 18:25 76 26 H 185/103 H 08/05/22 18:22 78 19 193/132 H 08/05/22 18:16 72 17 167/94 H 08/05/22 18:11 75 13 139/101 H 08/05/22 18:06 78 16 178/105 H 96 08/05/22 18:01 74 15 158/125 H 96 08/05/22 17:55 78 16 169/93 H 08/05/22 17:50 76 18 152/81 H 96 08/05/22 18:15 36.9 C 75 18 167/94 H 96 08/05/22 18:30 18 164/87 H 96 08/05/22 18:29 75 185/103 H 08/05/22 17:40 78 22 152/81 H 98 08/05/22 17:24 84 20 174/97 H 97 08/05/22 17:27 82 08/05/22 16:55 36.2 C L 86 20 183/115 H 99 O2 Del Method 08/05/22 23:30 08/05/22 23:30 08/05/22 23:07 08/05/22 23:07 08/05/22 23:01 08/05/22 23:01 08/05/22 23:00 08/05/22 22:30 08/05/22 22:08 08/05/22 22:08 08/05/22 22:00 08/05/22 21:56 08/05/22 21:56 08/05/22 21:41 08/05/22 21:41 08/05/22 21:30 08/05/22 21:01 08/05/22 21:01 08/05/22 21:00 08/05/22 20:51 08/05/22 20:48 08/05/22 19:31 08/05/22 23:34 Room Air 08/05/22 23:04 Room Air 08/05/22 20:42 Room Air, CPAP 08/05/22 21:10 08/05/22 22:34 Room Air 08/05/22 22:04 Room Air 08/05/22 21:34 Room Air 08/05/22 21:04 Room Air 08/05/22 21:14 Room Air 08/05/22 20:00 Room Air 08/05/22 20:30 Room Air 08/05/22 19:30 08/05/22 19:25 08/05/22 19:25 08/05/22 19:22 08/05/22 19:22 Room Air 08/05/22 19:20 08/05/22 19:15 08/05/22 19:11 08/05/22 19:11 Room Air 08/05/22 19:10 Room Air 08/05/22 19:05 08/05/22 19:05 08/05/22 19:01 08/05/22 19:01 08/05/22 19:00 Room Air 08/05/22 18:58 08/05/22 18:58 Room Air 08/05/22 18:50 Room Air 08/05/22 18:50 08/05/22 18:46 Room Air 08/05/22 18:46 08/05/22 18:42 Room Air 08/05/22 18:42 08/05/22 18:40 Room Air 08/05/22 19:04 Room Air 08/05/22 18:45 Room Air 08/05/22 18:30 08/05/22 18:35 Room Air 08/05/22 18:31 Room Air 08/05/22 18:30 Room Air 08/05/22 18:25 08/05/22 18:22 08/05/22 18:16 08/05/22 18:11 08/05/22 18:06 Room Air 08/05/22 18:01 Room Air 08/05/22 17:55 08/05/22 17:50 Room Air 08/05/22 18:15 Room Air 08/05/22 18:30 Room Air 08/05/22 18:29 08/05/22 17:40 Room Air 08/05/22 17:24 Room Air 08/05/22 17:27 08/05/22 16:55 Room Air Coding Level of Care Code 44439 IN/OBS CONSULT LVL 3,45M Diagnoses Stroke-like symptoms R29.90 Headache R51.9 GILBERTO on CPAP G47.33; Z99.89 Asthma J45.909 Hypothyroidism E03.9 Seizure disorder G40.909
[2022-08-06] MEDS: ACETAMINOPHEN 1,000 MG/100 ML VIAL IV PRN ×3 (05:08→15:06)
[2022-08-06] MEDS: LEVOTHYROXINE SODIUM 50 MCG TABLET PO SCH (06:13)
[2022-08-06] MEDS: LEVOTHYROXINE SODIUM 200 MCG TABLET PO SCH (06:13)
--- NOTE | 2022-08-06 07:36 | Critical Care Progress Note ---
Date of Service August 06, 2022 Assessment & Plan (1) tPA adm status 24 hr IMPROVEMENT COORDINATOR: (2) Seizure disorder: (3) Headache: Plan Impression: 52-year-old female with prior history of seizure disorder headache presenting with strokelike symptoms. Decision was made by telehealth to pursue thrombolytic administration in the emergency room. The patient is admitted to the ICU to monitor for signs or symptoms of bleeding. Recommendations: 1. Post systemic thrombolytic administration. No evidence of bleeding. We will plan on follow-up CT scan this afternoon and if negative the patient can be downgraded out of the ICU. 2. History of seizure disorder: Continue antiepileptics. Formal neurology consultation pending. 3. Headache: Unclear if this represents a migraine. The patient does not report prior history of migraines however review of her neurology notes indicates that this is a frequent complaint. She states she wants to avoid medications. Will avoid nonsteroidal anti-inflammatories in the setting of systemic thrombolytics. I offered her caffeine in the form of sodas which she is amenable to try. Unfortunately her dysphagia screen was positive so she will require a speech therapy evaluation. 4. Strokelike symptoms: No evidence of stroke on MRI or multiple CT scans. Await formal neurology consultation today. Hypothyroidism: Continue Synthroid Patient was discussed on multidisciplinary rounds. Discussed with bedside critical care nurse and pharmacy. We will await her follow-up imaging and disposition her from the ICU. Further recommendations per neurology. Admission and Anticipated Discharge Date Admission Date: August 05, 2022 Subjective Patient seen and examined. EMR reviewed. Discussed with critical care MICHAELLE overnight. The patient is complaining of a severe headache this morning. She had follow-up imaging with a formal read which is is pending but to my interpretation, there does not to be acute any abnormality. Patient has a variety of neurological complaints including some numbness and tingling. Some visual changes. She reports that she has not had frequent migraines in the past and does not take any medications. When I offered her medications, she declines and states she is not really interested in taking pills. Review of Systems Review of Systems: All systems reviewed & are unremarkable except as noted in Subjective Physical Exam Constitutional: WD/WN, vitals as above Neck: trachea midline, no thyromegaly Respiratory: normal respiratory effort, lungs clear to auscultation Cardiovascular: RRR, no murmur, no edema Gastrointestinal (Abdomen): normal bowel sounds, soft, nontender, no hepatosplenomegaly Musculoskeletal: Extremities: extremities normal to inspection Skin: no rashes, warm and dry Neurologic: Nonfocal exam Lymphatic: no cervical lymphadenopathy Results & Data Results & Data Vital Signs (Past 12 Hours) Vital Signs Temp Pulse Pulse Pulse Resp BP BP 08/06/22 07:00 62 18 140/78 08/06/22 06:04 78 22 123/72 08/06/22 05:04 36.5 C 90 12 132/98 08/06/22 04:04 36.6 C 72 15 120/77 08/06/22 03:04 36.6 C 60 22 155/86 H 08/06/22 02:04 36.6 C 58 L 24 126/74 08/06/22 01:34 36.6 C 63 14 95/55 L 08/06/22 01:04 36.6 C 63 14 127/64 08/06/22 00:34 36.5 C 71 17 118/72 08/06/22 00:04 36.6 C 80 17 131/98 08/06/22 00:00 68 08/05/22 23:30 69 19 08/05/22 23:30 114/71 08/05/22 23:07 08/05/22 23:07 129/87 08/05/22 23:01 136/72 08/05/22 23:01 67 14 08/05/22 23:00 65 16 08/05/22 22:30 63 14 08/05/22 22:08 65 17 08/05/22 22:08 141/91 H 08/05/22 22:00 72 16 08/05/22 21:56 66 15 08/05/22 21:56 135/105 H 08/05/22 21:41 69 14 08/05/22 21:41 162/99 H 08/05/22 21:30 67 19 08/05/22 21:01 64 18 08/05/22 21:01 131/92 08/05/22 21:00 64 18 131/92 08/05/22 20:51 78 16 137/73 08/05/22 20:48 74 17 08/05/22 23:34 36.5 C 67 20 114/71 08/05/22 23:04 36.6 C 69 13 129/87 08/05/22 20:42 08/05/22 21:10 68 08/05/22 22:34 36.5 C 76 18 166/87 H 08/05/22 22:04 36.6 C 63 12 141/91 H 08/05/22 21:34 36.6 C 78 16 162/99 H 08/05/22 21:04 36.5 C 68 13 137/73 08/05/22 21:14 36.5 C 68 19 117/73 08/05/22 20:00 63 16 129/71 08/05/22 20:30 62 16 115/60 Pulse Ox O2 Del Method O2 Flow Rate 08/06/22 07:00 94 Room Air 08/06/22 06:04 96 Room Air 08/06/22 05:04 96 Nasal Cannula 2 08/06/22 04:04 97 Nasal Cannula 2 08/06/22 03:04 98 Nasal Cannula 2 08/06/22 02:04 93 Nasal Cannula 2 08/06/22 01:34 97 Nasal Cannula 2 08/06/22 01:04 96 Nasal Cannula 2 08/06/22 00:34 98 Nasal Cannula 2 08/06/22 00:04 97 Room Air 08/06/22 00:00 08/05/22 23:30 96 08/05/22 23:30 08/05/22 23:07 98 08/05/22 23:07 08/05/22 23:01 08/05/22 23:01 97 08/05/22 23:00 97 08/05/22 22:30 96 08/05/22 22:08 95 08/05/22 22:08 08/05/22 22:00 97 08/05/22 21:56 97 08/05/22 21:56 08/05/22 21:41 96 08/05/22 21:41 08/05/22 21:30 97 08/05/22 21:01 97 08/05/22 21:01 08/05/22 21:00 97 08/05/22 20:51 94 08/05/22 20:48 96 08/05/22 23:34 97 Room Air 08/05/22 23:04 96 Room Air 08/05/22 20:42 Room Air, CPAP 08/05/22 21:10 08/05/22 22:34 98 Room Air 08/05/22 22:04 96 Room Air 08/05/22 21:34 95 Room Air 08/05/22 21:04 98 Room Air 08/05/22 21:14 95 Room Air 08/05/22 20:00 96 Room Air 08/05/22 20:30 95 Room Air Critical Care Results & Data Vital Signs (Past 12 Hours) Vital Signs Temp Pulse Pulse Pulse Resp BP BP 08/06/22 07:00 62 18 140/78 08/06/22 06:04 78 22 123/72 08/06/22 05:04 36.5 C 90 12 132/98 08/06/22 04:04 36.6 C 72 15 120/77 08/06/22 03:04 36.6 C 60 22 155/86 H 08/06/22 02:04 36.6 C 58 L 24 126/74 08/06/22 01:34 36.6 C 63 14 95/55 L 08/06/22 01:04 36.6 C 63 14 127/64 08/06/22 00:34 36.5 C 71 17 118/72 08/06/22 00:04 36.6 C 80 17 131/98 08/06/22 00:00 68 08/05/22 23:30 69 19 08/05/22 23:30 114/71 08/05/22 23:07 08/05/22 23:07 129/87 08/05/22 23:01 136/72 08/05/22 23:01 67 14 08/05/22 23:00 65 16 08/05/22 22:30 63 14 08/05/22 22:08 65 17 08/05/22 22:08 141/91 H 08/05/22 22:00 72 16 08/05/22 21:56 66 15 08/05/22 21:56 135/105 H 08/05/22 21:41 69 14 08/05/22 21:41 162/99 H 08/05/22 21:30 67 19 08/05/22 21:01 64 18 08/05/22 21:01 131/92 08/05/22 21:00 64 18 131/92 08/05/22 20:51 78 16 137/73 08/05/22 20:48 74 17 08/05/22 23:34 36.5 C 67 20 114/71 08/05/22 23:04 36.6 C 69 13 129/87 08/05/22 20:42 08/05/22 21:10 68 08/05/22 22:34 36.5 C 76 18 166/87 H 08/05/22 22:04 36.6 C 63 12 141/91 H 08/05/22 21:34 36.6 C 78 16 162/99 H 08/05/22 21:04 36.5 C 68 13 137/73 08/05/22 21:14 36.5 C 68 19 117/73 08/05/22 20:00 63 16 129/71 08/05/22 20:30 62 16 115/60 Pulse Ox O2 Del Method O2 Flow Rate 08/06/22 07:00 94 Room Air 08/06/22 06:04 96 Room Air 08/06/22 05:04 96 Nasal Cannula 2 08/06/22 04:04 97 Nasal Cannula 2 08/06/22 03:04 98 Nasal Cannula 2 08/06/22 02:04 93 Nasal Cannula 2 08/06/22 01:34 97 Nasal Cannula 2 08/06/22 01:04 96 Nasal Cannula 2 08/06/22 00:34 98 Nasal Cannula 2 08/06/22 00:04 97 Room Air 08/06/22 00:00 08/05/22 23:30 96 08/05/22 23:30 08/05/22 23:07 98 08/05/22 23:07 08/05/22 23:01 08/05/22 23:01 97 08/05/22 23:00 97 08/05/22 22:30 96 08/05/22 22:08 95 08/05/22 22:08 08/05/22 22:00 97 08/05/22 21:56 97 08/05/22 21:56 08/05/22 21:41 96 08/05/22 21:41 08/05/22 21:30 97 08/05/22 21:01 97 08/05/22 21:01 08/05/22 21:00 97 08/05/22 20:51 94 08/05/22 20:48 96 08/05/22 23:34 97 Room Air 08/05/22 23:04 96 Room Air 08/05/22 20:42 Room Air, CPAP 08/05/22 21:10 08/05/22 22:34 98 Room Air 08/05/22 22:04 96 Room Air 08/05/22 21:34 95 Room Air 08/05/22 21:04 98 Room Air 08/05/22 21:14 95 Room Air 08/05/22 20:00 96 Room Air 08/05/22 20:30 95 Room Air Lab & Micro Results (Past 24 Hours) RBC 3.88 M/uL (4.20-5.40) L 08/05/22 WBC 11.68 K/ul (4.8-10.8) H 08/05/22 Hgb 12.4 g/dl (12.0-16.0) 08/05/22 Hct 36.7 % (37.0-47.0) L 08/05/22 MCV 94.6 fL (80.0-100.0) 08/05/22 MCH 32.0 pg (25.0-34.0) 08/05/22 MCHC 33.8 g/dL (32.0-36.0) 08/05/22 RDW Standard Deviation 48.9 fL (36.4-46.3) H 08/05/22 RDW Coefficient of Variation 14.1 % (11.5-14.5) 08/05/22 Plt Count 298 K/uL (130-400) 08/05/22 MPV 10.1 fL (9.4-12.4) 08/05/22 Neutrophils (%) (Auto) 66.1 % 08/05/22 Lymphocytes (%) (Auto) 23.6 % 08/05/22 Monocytes # (Auto) 0.76 K/uL (0.11-0.59) H 08/05/22 Eosinophils # (Auto) 0.30 K/uL (0-0.50) 08/05/22 Immature Granulocyte % (Auto) 0.9 % 08/05/22 Neutrophils # (Auto) 7.72 K/uL (1.40-6.50) H 08/05/22 Lymphocytes # (Auto) 2.76 K/uL (1.2-3.4) 08/05/22 Monocytes # (Auto) 0.76 K/uL (0.11-0.59) H 08/05/22 Eosinophils # (Auto) 0.30 K/uL (0-0.50) 08/05/22 Basophils # (Auto) 0.04 K/uL (0-0.2) 08/05/22 Immature Granulocyte # (Auto) 0.10 K/uL (0.01-0.20) 3 Na 138 mmol/L (136-145) 08/05/22 K 3.7 mmol/L (3.5-5.1) 08/05/22 Cl 106 mmol/L (98-107) 08/05/22 CO2 25 mmol/L (21-32) 08/05/22 Anion Gap 7 (3-11) 08/05/22 BUN 11 mg/dl (6-23) 08/05/22 Creatinine 0.63 mg/dl (0.6-1.2) 08/05/22 Estimated GFR ( Amer) 119.5 ml/min 08/05/22 Estimated GFR (Non-Af Amer) 103.1 ml/min 08/05/22 BUN/Creatinine Ratio 17.5 (10-20) 08/05/22 Glu 117 mg/dl (70-99(Fasting)) H 08/05/22 Ca 9.8 mg/dl (8.6-10.3) 08/05/22 Total Bilirubin 0.1 mg/dl (0.2-1.0) L 08/05/22 AST 17 U/L (13-39) 08/05/22 ALT 16 U/L (7-52) 08/05/22 Alkaline Phosphatase 82 U/L (34-104) 08/05/22 TP 6.7 gm/dl (6.0-8.3) 08/05/22 Albumin 4.3 gm/dl (3.4-5.0) 08/05/22 Globulin 2.4 gm/dl (2.5-4.0) L 08/05/22 Albumin/Globulin Ratio 1.8 (0.9-2) 08/05/22 Mg 2.0 mg/dl (1.7-2.4) 08/05/22 17:28 Calcium Level 9.8 mg/dl (8.6-10.3) 08/05/22 17:28 Prothromb Time International Ratio 1.0 (0.9-1.1) 08/05/22 17:2 8 Diagnostic Findings (Past 24 Hours) Head CT 08/05/22 16:59 CT head/brain wo con CLINICAL HISTORY: neuro deficit, acute stroke suspected Technique: Contiguous axial CT images of the head were acquired from the base of the skull to the vertex without intravenous contrast administration. Images were viewed in brain, subdural and bone windows. Automated dose lowering techniques and/or adjustment according to patient size were utilized for this exam. Comparison: Comparison is made to CT head 02/15/2022 Findings: The ventricles, basal cisterns, and cerebral sulci are normal. There is no acute intracranial hemorrhage or evidence of acute territorial infarction. Neither mass effect, shift of the midline structures, nor abnormal extra-axial fluid collections are shown. Imaged portions of the paranasal sinuses and mastoid air cells are clear. The orbits appear normal. There are no acute fractures of the calvaria or scalp swelling. Impression: No acute intracranial hemorrhage, no evidence of acute territorial infarction or other acute intracranial disease process. ACT 112: Negative or not required by law. Electronically signed by: Arpan Schmidt M.D. 08/05/2022 5:14 PM Head CTA 08/05/22 16:59 CT ANGIOGRAM OF THE BRAIN; CT ANGIOGRAM OF THE NECK CLINICAL HISTORY: Neurological deficit. Stroke like symptoms. Change in mental status. COMPARISON STUDY: Unenhanced CT of the brain performed concurrently on 08/05/2022. CT of the brain dated 02/15/2022. TECHNIQUE: Following the IV administration of 119 of Optiray 320, CT angiogram of the head and neck was performed from the aortic arch to the vertex. Images are reviewed in the axial, sagittal, and coronal planes. 3-D MIPS images are created and assessed. IV contrast was administered without complication. All measurements were calculated based on NASCET criteria. A dose lowering technique was utilized adhering to the principles of ALARA. CT DOSE: 1141.25 mGy.cm FINDINGS: Brain parenchyma: The brain parenchyma is normal in appearance. There is no evidence of hemorrhage, mass effect, or acute territorial ischemia noting angiographic phase technique. There is no evidence of enhancing mass lesion on the angiogram phase images. The ventricles, sulci, and cisterns are normal in configuration. [place]-white matter differentiation is preserved. No extra-axial fluid collection is seen. Thoracic aorta: Visualized portions of the thoracic aorta are normal in caliber. The aortic arch demonstrates standard 3-vessel anatomy. Right carotid arterial system: The right common carotid artery is widely patent, as are the right internal and external carotid arteries. Left carotid arterial system: The left common carotid artery is widely patent, as are the left internal and external carotid arteries. Vertebral arteries: The vertebral arteries are widely patent bilaterally noting left-sided dominance. Subclavian arteries: Widely patent bilaterally. Intracranial vasculature: The internal carotid arteries are patent at the skull base, as are the anterior and middle cerebral arteries bilaterally. The vertebrobasilar system and posterior cerebral arteries are widely patent. The left vertebral artery is dominant. There is no aneurysm, high-grade stenosis, or focal vessel cut off seen throughout the intracranial circulation. Jugular veins: Patent bilaterally. Dural sinuses: Patent. Lung apices: Emphysematous change is noted. Upper lobe lung parenchyma is otherwise clear as visualized. Soft tissues: The visualized pharyngeal soft tissues are normal in appearance noting angiographic phase technique. The oropharyngeal airway appears widely patent. The thyroid gland is atrophic versus surgically absent. The salivary glands are normal in appearance. No cervical lymphadenopathy is seen. Skeletal structures: The calvarium appears intact. The cervical spine is within normal limits. Orbits: The bony orbits are intact. Orbital contents are normal as visualized. Sinuses and mastoids: The paranasal sinuses are clear. The mastoid air cells are well pneumatized. IMPRESSION: 1. There is no evidence of hemorrhage, mass effect, or acute territorial ischemia noting angiographic phase technique. 2. Unremarkable CT angiogram of the brain. 3. Unremarkable CT angiogram of the neck. 4. Emphysema. ACT 112: Negative or not required by law. Electronically signed by: Donnell Mayers M.D. 08/05/2022 5:24 PM Neck CTA 08/05/22 16:59 CT ANGIOGRAM OF THE BRAIN; CT ANGIOGRAM OF THE NECK CLINICAL HISTORY: Neurological deficit. Stroke like symptoms. Change in mental status. COMPARISON STUDY: Unenhanced CT of the brain performed concurrently on 08/05/2022. CT of the brain dated 02/15/2022. TECHNIQUE: Following the IV administration of 119 of Optiray 320, CT angiogram of the head and neck was performed from the aortic arch to the vertex. Images are reviewed in the axial, sagittal, and coronal planes. 3-D MIPS images are created and assessed. IV contrast was administered without complication. All measurements were calculated based on NASCET criteria. A dose lowering technique was utilized adhering to the principles of ALARA. CT DOSE: 1141.25 mGy.cm FINDINGS: Brain parenchyma: The brain parenchyma is normal in appearance. There is no evidence of hemorrhage, mass effect, or acute territorial ischemia noting angiographic phase technique. There is no evidence of enhancing mass lesion on the angiogram phase images. The ventricles, sulci, and cisterns are normal in configuration. [place]am-white matter differentiation is preserved. No extra-axial fluid collection is seen. Thoracic aorta: Visualized portions of the thoracic aorta are normal in caliber. The aortic arch demonstrates standard 3-vessel anatomy. Right carotid arterial system: The right common carotid artery is widely patent, as are the right internal and external carotid arteries. Left carotid arterial system: The left common carotid artery is widely patent, as are the left internal and external carotid arteries. Vertebral arteries: The vertebral arteries are widely patent bilaterally noting left-sided dominance. Subclavian arteries: Widely patent bilaterally. Intracranial vasculature: The internal carotid arteries are patent at the skull base, as are the anterior and middle cerebral arteries bilaterally. The vertebrobasilar system and posterior cerebral arteries are widely patent. The left vertebral artery is dominant. There is no aneurysm, high-grade stenosis, or focal vessel cut off seen throughout the intracranial circulation. Jugular veins: Patent bilaterally. Dural sinuses: Patent. Lung apices: Emphysematous change is noted. Upper lobe lung parenchyma is otherwise clear as visualized. Soft tissues: The visualized pharyngeal soft tissues are normal in appearance noting angiographic phase technique. The oropharyngeal airway appears widely patent. The thyroid gland is atrophic versus surgically absent. The salivary glands are normal in appearance. No cervical lymphadenopathy is seen. Skeletal structures: The calvarium appears intact. The cervical spine is within normal limits. Orbits: The bony orbits are intact. Orbital contents are normal as visualized. Sinuses and mastoids: The paranasal sinuses are clear. The mastoid air cells are well pneumatized. IMPRESSION: 1. There is no evidence of hemorrhage, mass effect, or acute territorial ischemia noting angiographic phase technique. 2. Unremarkable CT angiogram of the brain. 3. Unremarkable CT angiogram of the neck. 4. Emphysema. ACT 112: Negative or not required by law. Electronically signed by: Donnell Mayers M.D. 08/05/2022 5:24 PM Brain MRI 08/05/22 18:33 CR Exam(s): MRI HEAD W/WO Contrast IV Amt: 11.9 gadavist EXAM: MR Head Without and With Intravenous Contrast CLINICAL HISTORY: Reason for exam: Right sided weakness/numbness, expressive dysphasia. TECHNIQUE: Magnetic resonance images of the head/brain without and with intravenous contrast in multiple planes. CONTRAST: Patient received 11.9 Gadavist of IV contrast COMPARISON: CT head from August 05, 2022 FINDINGS: Brain: Unremarkable. No hemorrhage. No areas of diffusion restriction are seen to indicate acute stroke. Ventricles: Unremarkable. No ventriculomegaly. Bones/joints: There is a 4 mm focus of enhancement in the right paramidline central buzz. No signal abnormality is seen in the location on the remaining pulse sequences. No susceptibility artifact is identified. Sinuses: Unremarkable as visualized. No acute sinusitis. Mastoid air cells: Unremarkable as visualized. No mastoid effusion. Orbits: Unremarkable as visualized. Other findings: This is consistent with a small capillary telangiectasia. IMPRESSION: 1. No areas of diffusion restriction are seen to indicate acute stroke. 2. There is a 4 mm focus of enhancement in the right paramidline central buzz. No signal abnormality is seen in the location on the remaining pulse sequences. No susceptibility artifact is identified in this location. Communications: Call Doctor Stroke Electronically signed by: Addy Samson MD 08/05/22 21:18 PM I & O Totals 24 Hours 08/05/22 08/06/22 08/07/22 06:59 06:59 06:59 Intake Total 100 / 100 Output Total 100 / 100 Balance 0 / 0 Cumulative 08/05/22 16:53 thru 08/06/22 06:30 Intake Total 100 Output Total 100 Balance 0 RT Ventilator Mngmt (Last Documented) Ventilator Ordered Settings Respiratory Rate 18 08/06/22 07:00 Ventilator - PT Measurements Respiratory Rate 18 Coding Level of Care Code 31820 SUB INP/OBS CARE 2/35MIN Diagnoses tPA adm status 24 hr IMPROVEMENT COORDINATOR Z92.82 Seizure disorder G40.909 Headache R51.9
[2022-08-06] MEDS: ICU Protocol for HYPERglycemia SCH ×4 (07:41→20:37)
--- NOTE | 2022-08-06 08:14 | CT Scan Report ---
HEAD CT NONCONTRAST CT DOSE: 547.75 mGy.cm HISTORY: worsening headache, agitation post tnkase TECHNIQUE: Multiaxial CT images of the head were performed without the use of intravenous contrast. A utomated exposure control was utilized for this study. A dose lowering technique was utilized adheri ng to the principles of ALARA. Comparison: Brain MRI 08/05/2022. Findings: The paranasal sinuses and mastoid air cells are clear. The calvarium and skull base are int act. The ventricles and sulci are within normal limits. There is no mass, hematoma, midline shift, or acute infarct. A few small calcified scalp nodules again noted. Impression: No acute intracranial abnormality. ACT 112: Negative or not required by law. Electronically signed by: Martin Ruff M.D. 08/06/2022 8:11 AM
--- NOTE | 2022-08-06 08:49 | Neurology Consultation ---
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 She had similar postictal symptoms associated with a seizure episode this past January. She has a history of noncompliance with her anticonvulsant regimen although I am uncertain at this time if she has been taking her Keppra and Lamictal as prescribed. Given that her current presentation occurred without reported history of seizure at onset, there was concern for possible stroke. She did have a telestroke consultation and was administered TNKase. She has had a normal imaging evaluation including CTA of the head and neck, brain MRI, and follow-up CT of the head. She has an incidental pontine telangiectasia. Otherwise, no evidence of acute or subacute stroke or obvious acute seizure focus. Would check a levetiracetam and lamotrigine level, (orders placed). Continue current care per post TNKase administration. Agree with starting daily low-dose aspirin 24 hours after administration of TNKase. Check a lipid panel and transthoracic echocardiogram with bubble study. Although I suspect her mild residual right-sided weakness this morning is due to a Jelani's paralysis, if her weakness does not improve throughout the day, would recommend checking a repeat noncontrast brain MRI to reassess for stroke. Continue with current antiseizure medication regimen including Keppra 1000 mg twice daily and Lamictal 100 mg twice daily. History of Present Illness Reason for Consultation: stroke like symptoms Requesting Physician: Tye Samaniego MD Attending Physician: Arian Pool MD History of Present Illness The patient is a 52-year-old female who is known to me. I saw her earlier this year, in February, during an admission to the [facility] for a seizure. She has a history of epilepsy beginning in childhood. She had been in the process of moving from [place] to [facility] at that time and had been noncompliant with her antiseizure medication regimen, Keppra XR. She has a history of generalized tonic-clonic seizures but did endorse a history of aura, unpleasant smell. She had also informing at that time that she had a seizure about 3 weeks prior to that episode with associated incontinence, postictal, and associated right facial numbness and mild right sided weakness. She was seen for several follow-up appointments in our outpatient clinic. Lamotrigine has been added as an adjunctive antiseizure medication. She presented to the emergency department yesterday with a complaint of right facial numbness and right-sided weakness. She does not recall experiencing a seizure, however. She does remember having a headache and has had some mild difficulty with expressive speech. Given her symptoms, she was evaluated as a possible acute stroke and had a telestroke consultation with a specialist at [facility]. Given her signs and symptoms, she was treated with TNKase. She has had extensive neuroimaging evaluation including CTA of the head and neck, CT of the head x2, and brain MRI. I have independently reviewed these studies. There are no acute abnormalities or significant vascular lesions. There is an incidental 4 mm pontine telangiectasia. There is no evidence of an obvious seizure focus. The hippocampal formations are symmetric without evidence of mesial temporal sclerosis on thin sections. She has been afebrile. She was mildly hypertensive initially. There is no significant leukocytosis. She is not hyponatremic. She has normal renal function. She appears to be mildly hypothyroid on lab evaluation. Allergies Allergy/AdvReac Type Severity Reaction Status Date / Time ampicillin Allergy Severe Anaphylaxis Verified 08/05/22 17:31 bee venom protein (honey bee) Allergy Severe Anaphylaxis Verified 08/05/22 17:31 droperidol [From Inapsine] Allergy Severe TONGUE Verified 08/05/22 17:31 SWELLED, HIVES Penicillins Allergy Severe Anaphylaxis Verified 08/05/22 17:31 promethazine [From Phenergan] Allergy Intermediate Hives Verified 08/05/22 17:31 Home Medications Medication Instructions Recorded Confirmed Type cyanocobalamin (vitamin B-12) 1,000 mcg PO DAILY 02/14/22 08/05/22 History 1,000 mcg tablet (Vitamin B-12) epinephrine 0.3 mg/0.3 mL 0.3 mg IM DIRECTED PRN Allergic 02/14/22 08/05/22 History injection, auto-injector (EpiPen) Reaction ibuprofen 800 mg tablet 800 mg PO Q6H PRN Pain 02/14/22 08/05/22 History fluticasone 500 mcg-salmeterol 50 1 inh inhalation BID #1 ea 02/22/22 08/05/22 Rx mcg/dose blistr powdr for inhalation (Advair Diskus) levothyroxine 200 mcg tablet 200 mcg PO QAM #30 tabs 02/22/22 08/05/22 Rx levothyroxine 50 mcg tablet 50 mcg PO QAM #30 tabs 02/22/22 08/05/22 Rx lamotrigine 100 mg tablet 100 mg PO BID #60 tabs 04/08/22 08/05/22 Rx (Lamictal) albuterol sulfate 1.25 mg/3 mL 1.25 mg (3 mL) inhalation QID PRN 05/26/22 08/05/22 Rx solution for nebulization shortness of breath or wheezing #90 mL levetiracetam 500 mg tablet 1,000 mg PO BID #360 tabs 06/01/22 08/05/22 Rx (Keppra) naproxen 500 mg tablet 500 mg PO BID PRN pain #14 tabs 06/07/22 08/05/22 Rx azelastine 205.5 mcg (0.15 %) 1 spray intranasal BID 07/06/22 08/05/22 History nasal spray benzonatate 200 mg capsule 200 mg PO TID PRN cough #30 caps 07/06/22 08/05/22 Rx cetirizine 10 mg capsule (Zyrtec) 10 mg PO DAILY PRN Congestion 07/06/22 08/05/22 History montelukast 10 mg tablet 10 mg PO DAILY #30 tabs 07/06/22 08/05/22 Rx albuterol sulfate 90 mcg/actuation 1 - 2 inh inhalation QID PRN 08/05/22 08/05/22 History aerosol inhaler Shortness Of Breath zolpidem 5 mg tablet 5 mg PO HS 08/05/22 08/05/22 History Patient History Medical History Asthma Breast cancer Hypothyroidism GILBERTO on CPAP Seizure disorder VTE (venous thromboembolism) Surgical History History of lumpectomy History of wisdom tooth extraction Family History Other Cancer Social History Smoking Status: Current every day smoker Tobacco Type: Cigarettes Age Quit Using Tobacco: 49; Cigarettes Per Day: 1/2 PPD; Second Hand Exposure: Yes (partner is a "compulsive smoker"); Do You Dip or Chew Tobacco: No; Hx Alcohol Use: No Hx Substance Use: No Preferred Language: Estonian Communication Ability: Effective Visual Impairment: No Limitations Hearing Ability: Normal 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: No Beliefs That Will Affect Care: None marital status: Current Living Situation: Alone current occupational status: unemployed How many Children do You have: 0 How many Children do You have Comment: adopted-2 Feels Safe at Home: Yes Safety Concerns: Feels Safe At This Time Childhood Exposure to Second-Hand Smoke: No Diet: regular Dental Care, Regularly: No Physical Activity Frequency: Does not Exercise Seatbelt Use: always Sunscreen Use: Yes Assistive Devices: Contacts and Glasses Review of Systems Constitutional: no fever and no chills Eyes: no blind spots and no diplopia Ear, Nose, Mouth, Throat: no hearing loss Respiratory: no cough and no dyspnea Cardiovascular: no chest pain and no palpitations Gastrointestinal: no nausea and no vomiting Genitourinary: no urinary incontinence Musculoskeletal: no neck pain and no myalgia Integumentary: no rash and no lesions Neurologic: as per Subjective / HPI Psychiatric: no depression and no anxiety Hematologic / Lymphatic: no easy bleeding and no easy bruising Exam (Neuro) Constitutional: well developed and well nourished; no acute distress Eyes: normal visual carrington by confrontation, PERRL and EOM intact bilaterally; no papilledema Cardiovascular: Vessels: no carotid bruit Neurologic: Oriented to:: Person, Place and Time Memory: Short Term Intact and Remote Intact Attention: Span Intact and Concentration Intact Speech Fluency: Dysfluency; negative Dysarthria Fund of Knowledge: Current Events, Past History and Vocabulary Cranial Nerves: Normal II, III, IV, , V, VII, VIII, IX, X, XI and XII Motor Strength: Hemiparesis (Mild) Laterality: Right; negative Normal Lower Extremities or Normal Upper Extremities Motor Tone: Normal Lower Extremities and Normal Upper Extremities Muscle Bulk/Involuntary Movements: No Involuntary Movements; negative Muscle Atrophy Sensation: Pain/Temperature Intact, Vibration Intact and Proprioception Intact; negative Light Touch Intact Coordination: Finger-Nose Abnormal Laterality: Right and Heel-Garcia Abnormal Laterality: Right Deep Tendon Reflexes: Rt Triceps: 2+, Lt Triceps: 2+, Rt Biceps: 2+, Lt Biceps: 2+, Rt Brachioradialis: 2+, Lt Brachioradialis: 2+, Rt Patellar: 2+, Lt Patellar: 2+, Rt Ankle: 2+ and Lt Ankle: 2+ Special Tests: negative Babinski Present Details: Gait cannot be tested. Patient exhibits mildly reduced processing speed. She exhibits mild difficulty with speech fluency. No dysarthria. No aphasia. No difficulty with language comprehension. No facial droop. She exhibits subtle right-sided weakness, decreased initiation of movement for the right arm and leg. Subtle decrease of fine finger movements for the right hand. Results & Data Vital Signs (Past 12 Hours) Vital Signs Temp Pulse Pulse Pulse Resp BP BP 08/06/22 07:10 67 13 140/78 08/06/22 08:02 36.5 C 65 13 136/78 08/06/22 07:00 62 18 140/78 08/06/22 06:04 78 22 123/72 08/06/22 05:04 36.5 C 90 12 132/98 08/06/22 04:04 36.6 C 72 15 120/77 08/06/22 03:04 36.6 C 60 22 155/86 H 08/06/22 02:04 36.6 C 58 L 24 126/74 08/06/22 01:34 36.6 C 63 14 95/55 L 08/06/22 01:04 36.6 C 63 14 127/64 08/06/22 00:34 36.5 C 71 17 118/72 08/06/22 00:04 36.6 C 80 17 131/98 08/06/22 00:00 68 08/05/22 23:30 69 19 08/05/22 23:30 114/71 08/05/22 23:07 08/05/22 23:07 129/87 08/05/22 23:01 136/72 08/05/22 23:01 67 14 08/05/22 23:00 65 16 08/05/22 22:30 63 14 08/05/22 22:08 65 17 08/05/22 22:08 141/91 H 08/05/22 22:00 72 16 08/05/22 21:56 66 15 08/05/22 21:56 135/105 H 08/05/22 21:41 69 14 08/05/22 21:41 162/99 H 08/05/22 21:30 67 19 08/05/22 21:01 64 18 08/05/22 21:01 131/92 08/05/22 21:00 64 18 131/92 08/05/22 20:51 78 16 137/73 08/05/22 20:48 74 17 08/05/22 23:34 36.5 C 67 20 114/71 08/05/22 23:04 36.6 C 69 13 129/87 08/05/22 20:42 08/05/22 21:10 68 08/05/22 22:34 36.5 C 76 18 166/87 H 08/05/22 22:04 36.6 C 63 12 141/91 H 08/05/22 21:34 36.6 C 78 16 162/99 H 08/05/22 21:04 36.5 C 68 13 137/73 08/05/22 21:14 36.5 C 68 19 117/73 08/05/22 20:30 62 16 115/60 Pulse Ox O2 Del Method O2 Flow Rate 08/06/22 07:10 96 Room Air 08/06/22 08:02 95 Room Air 08/06/22 07:00 94 Room Air 08/06/22 06:04 96 Room Air 08/06/22 05:04 96 Nasal Cannula 2 08/06/22 04:04 97 Nasal Cannula 2 08/06/22 03:04 98 Nasal Cannula 2 08/06/22 02:04 93 Nasal Cannula 2 08/06/22 01:34 97 Nasal Cannula 2 08/06/22 01:04 96 Nasal Cannula 2 08/06/22 00:34 98 Nasal Cannula 2 08/06/22 00:04 97 Room Air 08/06/22 00:00 08/05/22 23:30 96 08/05/22 23:30 08/05/22 23:07 98 08/05/22 23:07 08/05/22 23:01 08/05/22 23:01 97 08/05/22 23:00 97 08/05/22 22:30 96 08/05/22 22:08 95 08/05/22 22:08 08/05/22 22:00 97 06/30/23 21:56 97 08/05/22 21:56 08/05/22 21:41 96 08/05/22 21:41 08/05/22 21:30 97 08/05/22 21:01 97 08/05/22 21:01 08/05/22 21:00 97 08/05/22 20:51 94 08/05/22 20:48 96 08/05/22 23:34 97 Room Air 08/05/22 23:04 96 Room Air 08/05/22 20:42 Room Air, CPAP 08/05/22 21:10 08/05/22 22:34 98 Room Air 08/05/22 22:04 96 Room Air 08/05/22 21:34 95 Room Air 08/05/22 21:04 98 Room Air 08/05/22 21:14 95 Room Air 08/05/22 20:30 95 Room Air Laboratory Results WBC 11.68, hemoglobin 12.4, hematocrit 36.7, platelet count 298, sodium 138, potassium 3.7, BUN 11, creatinine 0.63, glucose 117, calcium 9.8, AST 17, ALT 16, TSH 5.073, free T40.55 Diagnostic Findings An electrocardiogram revealed a normal sinus rhythm, 66 bpm. Imaging as described in the history of present illness. 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
[2022-08-06] MEDS: lamoTRIgine 100 MG TAB PO SCH ×2 (09:21→20:37)
[2022-08-06] MEDS: MONTELUKAST SODIUM 10 MG TABLET PO SCH (09:21)
[2022-08-06] MEDS: levETIRAcetam 1,000 MG in 0.9 % SODIUM CHLORIDE 100 ML IV SCH ×2 (09:53→20:31)
[2022-08-06] MEDS: FLUTICASONE/VILANTEROL 200/25MCG 14 PUFFS/INHALER INH SCH (09:54)
--- NOTE | 2022-08-06 11:54 | Hospitalist Progress Note ---
Date of Service August 06, 2022 Assessment & Plan (1) Stroke-like symptoms: Plan: No CVA seen on brain MRI. Neurology consultation noted. This probably represents Jelani's paralysis following a seizure episode. She did receive thrombolytic therapy however. Continue supportive care. We will repeat brain MRI scan if her symptoms persist. Cardiac echo report pending. Repeat CT head in 24 hours. No anticoagulation/ASA for 24 hours. Consult neurology (2) Seizure disorder: Plan: Continue levetiracetam and lemotrigine. Serum levels pending (3) Severe obstructive sleep apnea: Plan: CPAP HS (4) Asthma: Plan: Advair Diskus BID. Stable (5) Hypothyroidism: Plan: TSH 40.6 in February - suspected not to be taking levothyroxine at that time. Thyroid profile pending Plan VTE Prophylaxis - deferred due to TNK Diet - NPO Disposition - to be determined Admission and Anticipated Discharge Date Admission Date: August 05, 2022 Subjective Alert and oriented. She continues to have right-sided weakness and has swallowing dysfunction. Neurology consultation noted. Her current symptoms probably represent Jelani's paralysis following a seizure episode. No evidence of CVA seen on brain MRI imaging. She did receive thrombolytic therapy. Review of Systems Review of Systems: Constitutional-no fever or chills ENT-no blurred vision, no double vision, no epistaxis, no sore throat Respiratory-no cough, no wheezing, no shortness of breath Cardiac-no palpitations, no chest pain, no syncope GI-no nausea, vomiting, diarrhea, melena, hematochezia -no urinary retention, no urinary incontinence, no dysuria, no hematuria Musculoskeletal-no joint pain, no muscle tenderness Skin-no bruising, no rashes, no pruritus Neuro-difficulty swallowing and right-sided weakness Psych-no depression, no anxiety Physical Exam Physical Exam: General-awake but mentation appears somewhat slow. She is oriented to name and place HEENT-head atraumatic and normocephalic, pupils equal and reactive to light, extraocular muscles intact Neck-no lymphadenopathy or thyromegaly, trachea midline Chest-clear to auscultation percussion. No rales wheezing or rhonchi Cardiac-regular rate and rhythm, normal S1 and S2 Abdomen-normal bowel sounds, nontender, no hepatosplenomegaly Extremities-no cyanosis, clubbing, or edema Neuro-right hemiparesis noted. Psych-normal affect, normal mood Results & Data Results & Data Vital Signs (Past 12 Hours) Vital Signs Temp Pulse Pulse Pulse Resp BP BP 08/06/22 11:00 36.5 C 70 14 133/79 08/06/22 10:00 36.6 C 54 L 15 130/81 08/06/22 09:02 36.5 C 64 16 165/98 H 08/06/22 07:10 67 13 140/78 08/06/22 08:02 36.5 C 65 13 136/78 08/06/22 07:00 62 18 140/78 08/06/22 06:04 78 22 123/72 08/06/22 05:04 36.5 C 90 12 132/98 08/06/22 04:04 36.6 C 72 15 120/77 08/06/22 03:04 36.6 C 60 22 155/86 H 08/06/22 02:04 36.6 C 58 L 24 126/74 08/06/22 01:34 36.6 C 63 14 95/55 L 08/06/22 01:04 36.6 C 63 14 127/64 08/06/22 00:34 36.5 C 71 17 118/72 08/06/22 00:04 36.6 C 80 17 131/98 08/06/22 00:00 68 Pulse Ox O2 Del Method O2 Flow Rate 08/06/22 11:00 99 Room Air 08/06/22 10:00 98 Room Air 08/06/22 09:02 97 Room Air 08/06/22 07:10 96 Room Air 08/06/22 08:02 95 Room Air 08/06/22 07:00 94 Room Air 08/06/22 06:04 96 Room Air 08/06/22 05:04 96 Nasal Cannula 2 08/06/22 04:04 97 Nasal Cannula 2 08/06/22 03:04 98 Nasal Cannula 2 08/06/22 02:04 93 Nasal Cannula 2 08/06/22 01:34 97 Nasal Cannula 2 08/06/22 01:04 96 Nasal Cannula 2 08/06/22 00:34 98 Nasal Cannula 2 08/06/22 00:04 97 Room Air 08/06/22 00:00 Laboratory Results 08/05/22 17:28 08/05/22 17:28 PG Care Time/CCT Total # of Minutes Spent Total Time Spent with Patient: Total time spent is greater than 50% in coordination of care (as documented) at patient's floor/unit and/or counseling patient: Coding Level of Care Code 64348 SUB INP/OBS CARE 3/50MIN Diagnoses Stroke-like symptoms R29.90 Seizure disorder G40.909 Severe obstructive sleep apnea G47.33 Asthma J45.909 Hypothyroidism E03.9
[2022-08-06] MEDS: D5W AND NSS 1,000 ML IV SCH (12:03)
[2022-08-06] MEDS ORDERED: KETOROLAC TROMETHAMINE 15 MG/ML VIAL IV ONE (16:29)
[2022-08-06 18:57] LABS: Basophils # (auto) 0.04 K/uL (0-0.2); Basophils % (auto) 0.4 %; Eosinophils # (auto) 0.22 K/uL (0-0.50); Eosinophils % (auto) 2.1 %; Hematocrit (blood only) 36.2 % (37.0-47.0); Immature Granulocytes # (auto) 0.05 K/uL (0.01-0.20); Immature Granulocytes % (auto) 0.5 %; Lymphocytes # (auto) 2.11 K/uL (1.2-3.4); Lymphocytes % (auto) 20.5 %; Mean Corpuscular Hemoglobin 31.9 pg (25.0-34.0); Mean Corpuscular Hgb Conc 33.1 g/dL (32.0-36.0); Mean Corpuscular Volume 96.3 fL (80.0-100.0); Mean Platelet Volume 10.3 fL (9.4-12.4); Monocytes # (auto) 0.68 K/uL (0.11-0.59); Monocytes % (auto) 6.6 %; Neutrophils # (auto) 7.18 K/uL (1.40-6.50); Neutrophils % (auto) 69.9 %; Platelet Count 260 K/uL (130-400); RDW Coefficient of Variation 14.3 % (11.5-14.5); RDW Standard Deviation 50.4 fL (36.4-46.3); Red Blood Count 3.76 M/uL (4.20-5.40); White Blood Count 10.28 K/ul (4.8-10.8)
[2022-08-06 19:08] LABS: Estimated Average Glucose 126 mg/dl
[2022-08-06 19:25] LABS: Anion Gap 8 (3-11); BUN Creatinine Ratio 20.5 (10-20); Blood Urea Nitrogen 15 mg/dl (6-23); Calcium 9.8 mg/dl (8.6-10.3); Carbon Dioxide 25 mmol/L (21-32); Chloride 108 mmol/L (98-107); Chol HDL Ratio 5.3 (0-5); Cholesterol 208 mg/dl (0-200); Creatinine Clr Calc Pharmacy 124.5 ml/min; Est GFR (African American) 109.7 ml/min; Est GFR (Non-African American) 94.7 ml/min; Glucose 117 mg/dl (70-99(Fasting)); HDL Cholesterol 39 mg/dl; LDL Cholesterol Calculated 122 mg/dl; Magnesium 2.1 mg/dl (1.7-2.4); Phosphorus 4.7 mg/dl (2.5-4.9); Sodium 141 mmol/L (136-145); Triglycerides 235 mg/dl (0-150); VLDL Cholesterol 47 mg/dl (0-30)
--- NOTE | 2022-08-06 19:58 | Magnetic Resonance Report ---
Brain MRI WITHOUT CONTRAST HISTORY: Jelani's Paralysis/CVA symptoms TECHNIQUE: Multiplanar multisequence MRI of the brain was performed without the use of contrast. COMPARISON STUDY: Head CT 08/06/2022. Brain MRI 08/05/2022. FINDINGS: There are no areas of restricted diffusion to suggest acute infarction. The midline structu res are intact. The paranasal sinuses are clear. The mastoid air cells are clear. The ventricles and sulci are within normal limits for age. There is no mass, hematoma, midline shift. The major vascular flow-voids at the skull base are well maintained. 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 Scattered sm all scalp nodules again noted. Mild motion artifact. IMPRESSION: No acute infarct or intracranial hemorrhage. ACT 112: Negative or not required by law. Electronically signed by: Martin Ruff M.D. 08/06/2022 7:56 PM
--- NOTE | 2022-08-06 22:47 | XCELERA ---
[id number] \\[id number]___[id number].pdf
[2022-08-07] MEDS: D5W AND NSS 1,000 ML IV SCH ×3 (00:26→22:18)
[2022-08-07] MEDS: LEVOTHYROXINE SODIUM 200 MCG TABLET PO SCH (05:24)
[2022-08-07] MEDS: LEVOTHYROXINE SODIUM 50 MCG TABLET PO SCH (05:24)
[2022-08-07] MEDS ORDERED: KETOROLAC TROMETHAMINE 15 MG/ML VIAL IV ONE (05:53)
[2022-08-07] MEDS: ACETAMINOPHEN 1,000 MG/100 ML VIAL IV PRN ×2 (06:24→17:09)
[2022-08-07 06:35] LABS: Basophils # (auto) 0.03 K/uL (0-0.2); Basophils % (auto) 0.3 %; Eosinophils # (auto) 0.27 K/uL (0-0.50); Eosinophils % (auto) 3.1 %; Hematocrit (blood only) 36.1 % (37.0-47.0); Hemoglobin 11.7 g/dl (12.0-16.0); Immature Granulocytes # (auto) 0.06 K/uL (0.01-0.20); Immature Granulocytes % (auto) 0.7 %; Lymphocytes # (auto) 2.25 K/uL (1.2-3.4); Mean Corpuscular Hemoglobin 31.5 pg (25.0-34.0); Mean Corpuscular Hgb Conc 32.4 g/dL (32.0-36.0); Mean Platelet Volume 10.3 fL (9.4-12.4); Monocytes # (auto) 0.64 K/uL (0.11-0.59); Monocytes % (auto) 7.4 %; Neutrophils # (auto) 5.41 K/uL (1.40-6.50); Neutrophils % (auto) 62.5 %; Platelet Count 281 K/uL (130-400); RDW Coefficient of Variation 14.2 % (11.5-14.5); RDW Standard Deviation 50.6 fL (36.4-46.3); Red Blood Count 3.72 M/uL (4.20-5.40); White Blood Count 8.66 K/ul (4.8-10.8)
[2022-08-07] MEDS ORDERED: MoRPHine SULFATE 4 MG/ML 1 ML CARP\\VIAL IV STA (06:56)
[2022-08-07 06:59] LABS: BUN Creatinine Ratio 20.9 (10-20); Calcium 9.5 mg/dl (8.6-10.3); Creatinine Clr Calc Pharmacy 135.7 ml/min; Est GFR (African American) 117.1 ml/min; Est GFR (Non-African American) 101.1 ml/min; Magnesium 2.1 mg/dl (1.7-2.4); Phosphorus 3.6 mg/dl (2.5-4.9); Potassium 4.8 mmol/L (3.5-5.1)
[2022-08-07] MEDS: ICU Protocol for HYPERglycemia SCH (07:18)
[2022-08-07] MEDS: FLUTICASONE/VILANTEROL 200/25MCG 14 PUFFS/INHALER INH SCH (09:40)
[2022-08-07] MEDS: lamoTRIgine 100 MG TAB PO SCH ×2 (09:41→20:26)
[2022-08-07] MEDS: MONTELUKAST SODIUM 10 MG TABLET PO SCH (09:41)
[2022-08-07] MEDS: ASPIRIN 81 MG ECTAB PO SCH (10:21)
[2022-08-07] MEDS: levETIRAcetam 1,000 MG in 0.9 % SODIUM CHLORIDE 100 ML IV SCH ×2 (10:21→13:03)
[2022-08-07] MEDS ORDERED: Nursing to Pharmacy Communication SCH (13:00)
--- NOTE | 2022-08-07 15:05 | Hospitalist Progress Note ---
Date of Service August 07, 2022 Assessment & Plan (1) Stroke-like symptoms: Plan: No CVA seen on 2 separate brain MRI scan. Would expect Jelani's paralysis to have resolved by now. Neurology consultation noted. Continue supportive care. She may need PEG tube placement if she does not quickly regain the ability to swallow. She did receive thrombolytic therapy on admission. Continue supportive care. Cardiac echo report noted. She has a small PFO which appears to be of no clinical consequence. No anticoagulation/ASA for 24 hours. (2) Seizure disorder: Plan: Continue levetiracetam and lemotrigine. Serum levels pending (3) Severe obstructive sleep apnea: Plan: CPAP HS (4) Asthma: Plan: Advair Diskus BID. Stable (5) Hypothyroidism: Plan: TSH 40.6 in February - suspected not to be taking levothyroxine at that time. She is now on parenteral thyroid replacement Plan VTE Prophylaxis - deferred due to TNK Diet - NPO Disposition - to be determined Admission and Anticipated Discharge Date Admission Date: August 05, 2022 Subjective Persistent right hemiparesis with dysphagia. Interestingly, her second brain MRI scan was negative for acute CVA. Appreciate neurological consultation and follow-up. She remains n.p.o. She may need PEG tube placement while she regains her swallowing function. She is now on parenteral levothyroxine replacement therapy. Continue intravenous Keppra for now Review of Systems Review of Systems: Constitutional-no fever or chills ENT-no blurred vision, no double vision, no epistaxis, no sore throat Respiratory-no cough, no wheezing, no shortness of breath Cardiac-no palpitations, no chest pain, no syncope GI-no nausea, vomiting, diarrhea, melena, hematochezia -no urinary retention, no urinary incontinence, no dysuria, no hematuria Musculoskeletal-no joint pain, no muscle tenderness Skin-no bruising, no rashes, no pruritus Neuro-difficulty swallowing and right-sided weakness persist Psych-no depression, no anxiety Physical Exam Physical Exam: General-awake but mentation appears somewhat slow. She is oriented to name and place HEENT-head atraumatic and normocephalic, pupils equal and reactive to light, extraocular muscles intact Neck-no lymphadenopathy or thyromegaly, trachea midline Chest-clear to auscultation percussion. No rales wheezing or rhonchi Cardiac-regular rate and rhythm, normal S1 and S2 Abdomen-normal bowel sounds, nontender, no hepatosplenomegaly Extremities-no cyanosis, clubbing, or edema Neuro-right hemiparesis noted. Psych-normal affect, normal mood Results & Data Results & Data Vital Signs (Past 12 Hours) Vital Signs Temp Pulse Pulse Pulse Resp BP Pulse Ox 08/07/22 14:44 55 L 08/07/22 11:02 36.6 C 58 L 16 155/61 H 98 08/07/22 08:00 63 08/07/22 07:47 36.5 C 56 L 16 121/67 94 08/07/22 03:06 36.3 C L 64 18 133/74 97 O2 Del Method 08/07/22 14:44 08/07/22 11:02 Room Air 08/07/22 08:00 08/07/22 07:47 Room Air 08/07/22 03:06 CPAP Laboratory Results 08/07/22 05:47 08/07/22 05:47 PG Care Time/CCT Total # of Minutes Spent Total Time Spent with Patient: Total time spent is greater than 50% in coordination of care (as documented) at patient's floor/unit and/or counseling patient: Coding Level of Care Code 13583 SUB INP/OBS CARE 3/50MIN Diagnoses Stroke-like symptoms R29.90 Seizure disorder G40.909 Severe obstructive sleep apnea G47.33 Asthma J45.909 Hypothyroidism E03.9
[2022-08-07] MEDS ORDERED: KETOROLAC TROMETHAMINE 15 MG/ML VIAL IV PRN (19:23)
[2022-08-07] MEDS ORDERED: levETIRAcetam 500 MG TAB PO SCH (21:00)
[2022-08-08] MEDS: levETIRAcetam 1,000 MG in 0.9 % SODIUM CHLORIDE 100 ML IV SCH ×2 (01:04→12:10)
[2022-08-08] MEDS: ACETAMINOPHEN 1,000 MG/100 ML VIAL IV PRN (05:12)
--- NOTE | 2022-08-08 05:37 | Electrocardiogram Report ---
Test Reason : Blood Pressure : / mmHG Vent. Rate : 084 BPM Atrial Rate : 084 BPM P-R Int : 192 ms QRS Dur : 104 ms QT Int : 394 ms P-R-T Axes : 043 005 021 degrees QTc Int : 465 ms Normal sinus rhythm Normal ECG When compared with ECG of 14-FEB-2022 20:00, No significant change was found Confirmed by Eric Garcia ([id number]) on 08/08/2022 5:37:14 AM Referred By: REFERRED SELF Confirmed By:Eric Garcia
--- NOTE | 2022-08-08 05:54 | Electrocardiogram Report ---
Test Reason : Blood Pressure : / mmHG Vent. Rate : 066 BPM Atrial Rate : 066 BPM P-R Int : 188 ms QRS Dur : 102 ms QT Int : 436 ms P-R-T Axes : 020 028 032 degrees QTc Int : 457 ms Normal sinus rhythm ST elevation, consider injury vs early repolarization When compared with ECG of 05-AUG-2022 17:21, ST elevation now present in Lateral leads Confirmed by Eric Garcia ([id number]) on 08/08/2022 5:53:58 AM Referred By: REFERRED SELF Confirmed By:Eric Garcia
[2022-08-08 06:34] LABS: Basophils # (auto) 0.03 K/uL (0-0.2); Basophils % (auto) 0.4 %; Eosinophils # (auto) 0.27 K/uL (0-0.50); Eosinophils % (auto) 3.3 %; Hematocrit (blood only) 33.7 % (37.0-47.0); Hemoglobin 11.2 g/dl (12.0-16.0); Immature Granulocytes # (auto) 0.05 K/uL (0.01-0.20); Immature Granulocytes % (auto) 0.6 %; Lymphocytes # (auto) 2.08 K/uL (1.2-3.4); Lymphocytes % (auto) 25.7 %; Mean Corpuscular Hemoglobin 31.4 pg (25.0-34.0); Mean Corpuscular Hgb Conc 33.2 g/dL (32.0-36.0); Mean Corpuscular Volume 94.4 fL (80.0-100.0); Mean Platelet Volume 10.4 fL (9.4-12.4); Monocytes # (auto) 0.55 K/uL (0.11-0.59); Monocytes % (auto) 6.8 %; Neutrophils # (auto) 5.12 K/uL (1.40-6.50); Neutrophils % (auto) 63.2 %; Platelet Count 250 K/uL (130-400); RDW Standard Deviation 48.7 fL (36.4-46.3); Red Blood Count 3.57 M/uL (4.20-5.40)
[2022-08-08 07:03] LABS: BUN Creatinine Ratio 25.5 (10-20); Creatinine Clr Calc Pharmacy 165.3 ml/min; Est GFR (Non-African American) 107.8 ml/min; Magnesium 1.9 mg/dl (1.7-2.4); Potassium 3.8 mmol/L (3.5-5.1)
[2022-08-08] MEDS: MONTELUKAST SODIUM 10 MG TABLET PO SCH (08:54)
[2022-08-08] MEDS: D5W AND NSS 1,000 ML IV SCH ×2 (08:54→17:19)
[2022-08-08] MEDS: ASPIRIN 81 MG ECTAB PO SCH (08:54)
[2022-08-08] MEDS: lamoTRIgine 100 MG TAB PO SCH ×2 (08:54→20:40)
[2022-08-08] MEDS: FLUTICASONE/VILANTEROL 200/25MCG 14 PUFFS/INHALER INH SCH (08:54)
[2022-08-08] MEDS ORDERED: LEVOTHYROXINE SODIUM 100 MCG in SYRINGE 0 ML IV SCH (09:00)
--- NOTE | 2022-08-08 12:57 | Hospitalist Progress Note ---
Date of Service August 08, 2022 Assessment & Plan (1) Stroke-like symptoms: Plan: No CVA seen on 2 separate brain MRI scan. Would expect Jelani's paralysis to have resolved by now. Neurology consultation noted. Continue supportive care. She may need PEG tube placement if she does not quickly regain the ability to swallow. Video swallow today, August 08. She did receive thrombolytic therapy on admission. Continue supportive care. Cardiac echo report noted. She has a small PFO which appears to be of no clinical consequence. Low-dose aspirin therapy has been started (2) Seizure disorder: Plan: Continue levetiracetam and lemotrigine. (3) Severe obstructive sleep apnea: Plan: CPAP HS (4) Asthma: Plan: Advair Diskus BID. Stable (5) Hypothyroidism: Plan: TSH 40.6 in February - suspected not to be taking levothyroxine at that time. She is now on parenteral thyroid replacement Plan VTE Prophylaxis - deferred due to TNK Diet - NPO Disposition - to be determined Admission and Anticipated Discharge Date Admission Date: August 05, 2022 Subjective Anxious and tearful. She states that she simply wants to go home. Psychiatry consultation requested. She will undergo video swallow evaluation today, August 08. Neurological deficits persist Review of Systems Review of Systems: Constitutional-no fever or chills ENT-no blurred vision, no double vision, no epistaxis, no sore throat Respiratory-no cough, no wheezing, no shortness of breath Cardiac-no palpitations, no chest pain, no syncope GI-no nausea, vomiting, diarrhea, melena, hematochezia -no urinary retention, no urinary incontinence, no dysuria, no hematuria Musculoskeletal-no joint pain, no muscle tenderness Skin-no bruising, no rashes, no pruritus Neuro-difficulty swallowing and right-sided weakness persist Psych-no depression, no anxiety Physical Exam Physical Exam: General-awake but mentation appears somewhat slow. She is oriented to name and place HEENT-head atraumatic and normocephalic, pupils equal and reactive to light, extraocular muscles intact Neck-no lymphadenopathy or thyromegaly, trachea midline Chest-clear to auscultation percussion. No rales wheezing or rhonchi Cardiac-regular rate and rhythm, normal S1 and S2 Abdomen-normal bowel sounds, nontender, no hepatosplenomegaly Extremities-no cyanosis, clubbing, or edema Neuro-right hemiparesis noted. Psych-normal affect, normal mood Results & Data Results & Data Vital Signs (Past 12 Hours) Vital Signs Temp Pulse Pulse Pulse Resp BP Pulse Ox 08/08/22 11:01 36.7 C 63 18 153/97 H 99 08/08/22 08:00 50 L 08/08/22 07:08 36.5 C 76 20 164/98 H 97 08/08/22 03:20 36.6 C 62 18 163/89 H 97 O2 Del Method 08/08/22 11:01 Room Air 08/08/22 08:00 08/08/22 07:08 Room Air 08/08/22 03:20 CPAP Laboratory Results 08/08/22 05:53 08/08/22 05:53 PG Care Time/CCT Total # of Minutes Spent Total Time Spent with Patient: Total time spent is greater than 50% in coordination of care (as documented) at patient's floor/unit and/or counseling patient: Coding Level of Care Code 02260 SUB INP/OBS CARE 3/50MIN Diagnoses Stroke-like symptoms R29.90 Seizure disorder G40.909 Severe obstructive sleep apnea G47.33 Asthma J45.909 Hypothyroidism E03.9
--- NOTE | 2022-08-08 14:22 | Fluoroscopy Report ---
MODIFIED BARIUM SWALLOW CLINICAL HISTORY: r/o aspiration COMPARISON STUDY: None. FLUOROSCOPY TIME: 2.16 minutes. Ka, r: 16.3 mGy. TECHNIQUE: A modified barium swallow was performed in conjunction with Speech Pathology. The patient ingested varying consistencies of barium containing material. Video fluoroscopy was performed. FINDINGS: No tracheal aspiration was identified with thin liquids by spoon, cup or serial swallows. T here was mild premature spillage. Epiglottic inversion was normal. Laryngeal elevation was normal. Th ere was no aspiration with mildly thick liquids, pudding thick liquids or crackers with pudding. IMPRESSION: 1. No tracheal aspiration identified. 2. Full recommendations by Speech pathology to follow. ACT 112: Negative or not required by law. Electronically signed by: Ihsan Reyes M.D. 08/08/2022 2:20 PM
[2022-08-08] MEDS: levETIRAcetam 500 MG TAB PO SCH (20:40)
[2022-08-08] MEDS ORDERED: MONTELUKAST SODIUM 10 MG TABLET PO SCH (21:00)
[2022-08-09] MEDS: D5W AND NSS 1,000 ML IV SCH (03:28)
[2022-08-09] MEDS ORDERED: LEVOTHYROXINE SODIUM 125 MCG TABLET PO SCH (06:30)
[2022-08-09 08:55] LABS: BUN Creatinine Ratio 10.2 (10-20); C Reactive Protein 0.53 mg/dl (0-0.5); Calcium 9.3 mg/dl (8.6-10.3); Creatinine Clr Calc Pharmacy 154.1 ml/min; Est GFR (African American) 122.1 ml/min; Est GFR (Non-African American) 105.4 ml/min; Potassium 3.7 mmol/L (3.5-5.1)
[2022-08-09] MEDS: ASPIRIN 81 MG ECTAB PO SCH (09:14)
[2022-08-09] MEDS: lamoTRIgine 100 MG TAB PO SCH (09:14)
[2022-08-09] MEDS: levETIRAcetam 500 MG TAB PO SCH (09:14)
[2022-08-09] MEDS: MONTELUKAST SODIUM 10 MG TABLET PO SCH (09:15)
[2022-08-09] MEDS: FLUTICASONE/VILANTEROL 200/25MCG 14 PUFFS/INHALER INH SCH (09:15)
[2022-08-09] MEDS ORDERED: MAGNESIUM SULFATE / D5W 1 GM/100 ML BAG IV ONE (12:14)
[2022-08-09] MEDS ORDERED: methylPREDNISolone 50 MG in SYRINGE 0 ML IV ONE (12:30)
--- NOTE | 2022-08-09 15:49 | Discharge Summary ---
Date of Service August 09, 2022 Admission HPI Per Admitting Provider Aide Knott is a 52 year old female who presents to the ER with right extremity weakness, right facial/extremity numbness, right eye vision blurring and difficulty speaking. Sudden onset of symptoms around 16:15 today. No history of stroke although she does have a history of epilepsy for which she takes levetiracetam and lamotrigine and migraines. No headache with these symptoms today. No significant change in symptoms since onset. Telestroke seen in the ER and she is now s/p TNK given. No slurring of speech but she is having difficulty finding the right words. No changes in hearing. She notably was admitted in February 14 to for a seizure after moving to [place] and being off her antiseizure medications. Discharge Data Allergies Allergy/AdvReac Type Severity Reaction Status Date / Time ampicillin Allergy Severe Anaphylaxis Verified 08/05/22 17:31 bee venom protein (honey bee) Allergy Severe Anaphylaxis Verified 08/05/22 17:31 droperidol [From Inapsine] Allergy Severe TONGUE Verified 08/05/22 17:31 SWELLED, HIVES Penicillins Allergy Severe Anaphylaxis Verified 08/05/22 17:31 promethazine [From Phenergan] Allergy Intermediate Hives Verified 08/05/22 17:31 Consultations 08/05/22 21:10 Consult [employer] Network Architect Routine Consult Neurology Routine 08/08/22 12:34 Consult Psychiatry Routine Ordered Studies 08/05/22 16:59 CT angio head w con Stat CT angio neck with con Stat CT head/brain wo con Stat 08/05/22 18:33 MRI Brain [MR brain wo/w con] Stat 08/06/22 06:13 CT head/brain wo con Stat 08/06/22 16:30 MRI Brain [MR brain wo con] Routine 08/08/22 13:00 FL video swallow Routine Hospital Course (1) Stroke-like symptoms: No CVA seen on 2 separate brain MRI scan. Would expect Jelani's paralysis to have resolved by now. Neurology consultation noted. Continue supportive care. She may need PEG tube placement if she does not quickly regain the ability to swallow. Video swallow today, August 08. She did receive thrombolytic therapy on admission. Continue supportive care. Cardiac echo report noted. She has a small PFO which appears to be of no clinical consequence. Low-dose aspirin therapy has been started (2) Seizure disorder: Continue levetiracetam and lemotrigine. (3) Severe obstructive sleep apnea: CPAP HS (4) Asthma: Advair Diskus BID. Stable (5) Hypothyroidism: TSH 40.6 in February - suspected not to be taking levothyroxine at that time. She is now on parenteral thyroid replacement Plan VTE Prophylaxis - deferred due to TNK Diet - NPO Disposition - to be determined Home Health Attestation I certify that this patient is under my care and that I, or a physicians assistant analyst working with me, had a face to-face encounter that meets the home health [id number]-[id number] encounter requirements with this patient. The encounter with the patient was in whole, or in part, for the following medical condition, which is the primary reason for home health care (list medical condition): I certify that, based on my findings, the following services are medically necessary home health services: My clinical findings support the need for the above services because: Further, I certify that my clinical findings support that this patient is homebound (i.e. absences from home require considerable and taxing effort and are for medical reasons or buddhism services or infrequently or of short duration when for other reasons) because: Certification for Home Health Services: Based on the above findings, I certify that this patient is confined to the home and needs intermittent assisted care, physical therapy and/or speech therapy or continues to need occupational therapy. The patient is under my care, and I have initiated the establishment of the plan of care. This patient will be followed by a physician who will periodically review the plan of care. Discharge Plan Discharge Items Patient Disposition: Home - Home Health Services Reason For Visit: Stroke-like symptoms Discharge Diagnosis: 1. 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 seizure disorder 3. hypothyroidism 4. migraines 5. sleep apnea 6. PFO (patent foramen ovale) 7. pre-Diabetes (hemoglobin a1c 6%) Activity: As commented below Activity Comment: gradually increase activities over the next 1-2 weeks Exercise/Sports: Wait until after follow-up appointment Driving/Machine Use: NO DRIVING unless cleared by [facility] Non-emergency contact: Primary Care Provider and Neurologist Call non-emergency contact if: you have any medication questions, your symptoms worsen and you have a fever Follow-up/Referrals: Rah Triana DO [Primary Care Provider] - (1 week) Roula Rothman PA-C [Physician Agricultural Sales Representative] - (THIS WEEK for recheck of your weakness & headaches) Diet: Regular Addtl Attending Provider Instructions: Ms Knott, You were hospitalized due to right facial numbness, right sided weakness, and difficulty speaking. There was initial concern for stroke and you were given "clot-busting medication " (TNKase) in the event that indeed your symptoms were from stroke. Your first MRI brain was normal making stroke very unlikely. As additional testing was done it became more clear that your right sided symptoms were either from "Jelani's Paralysis" or a "complex migraine." A repeat MRI brain later in the stay again returned normal (no stroke was seen). Jelani's paralysis is when someone with seizure disorder has a seizure and that person has motor weakness, numbness, or both following the seizure. The neurological symptoms with Jelani's paralysis on average last about 3 days. If this wasn't Jelani's paralysis then your symptoms may be due to complex migraine. Complex migraine is a migraine variant in which you develop stroke- like symptoms as a result of your migraine headache. The symptoms gradually resolve with a complex migraine as the headache goes away. We did give you headache medication including IV steroids and IV magnesium. As the stay went on your swallowing improved, your speech normalized, and your facial numbness & right sided weakness improved. PT/OT both advised inpatient rehab to improve your strength but you have declined this, instead wanting to go home and complete therapy at your house. Finally, your echocardiogram showed a small hole in the top portion of the heart called a "PFO." About 20% of the human population has this. It is not causing problems. You do not need surgery or other procedures to close it. We are recommending once daily aspirin 81mg. Recommendations - 1. Migraine headache - * to break the headache please continue on a prednisone taper; start this tomorrow, 08/10/22. Take with food. * you can also take Nurtec ODT - 75mg once daily as needed for headache; maximum 1 tablet in 24 hours. * ideally please HOLD other anti-inflammatories (naprosyn, ibuprofen, etc) while taking the prednisone. 2. YOU WILL NEED FOLLOW-UP WITH NEUROLOGY THIS WEEK AT [facility]. YOUR WEAKNESS WILL NEED TO BE RECHECKED WELL YOUR MIGRAINE HEADACHE. 3. Aspirin 81mg once daily. Purchase [id number]. 4. For nausea related to your headache you can take ondansetron ODT, 1 tablet every 6 hours as needed. 5. Please use a walker with ambulation until your weakness is resolved. 6. No driving or operating heavy machinery at this time UNLESS neurology clears you to do so. 7. PT/OT will come & work with you at your home to help with strength and conditioning. This will likely start later this week. 8. You have early "pre-diabetes." See handouts. Your hemoglobin a1c was 6% (again see handout). Please follow-up with Dr Triana for this problem. He will likely recheck your hemoglobin a1c several times each year. You do not need medication for the pre-diabetes at this time. Follow-up - see separate section Return to [facility] if - * you have fevers over 100 degrees * you have worsening weakness of the right arm or right leg * you have difficulty speaking or swallowing * you have worsening headache * you have a seizure * any other concerns It was our pleasure to care for you! -Dr Donohue Pending Studies at Discharge: Yes Studies:: Anaplasmosis testing (a tick-borne disease) Stand-Alone Forms: My [facility], Smoking Cessation Medications and DC Order Prescriptions: New aspirin 81 mg Tablet,Delayed Release (Dr/Ec) 81 mg PO QAM Qty: 90 1RF Rx Instructions: purchase piti-heo-dtsupob prednisone 10 mg tablet 10 mg PO DIRECTED Qty: 25 0RF Rx Instructions: start 08/10/22, take w/ food. 5 tabs day 1, 4 tabs days 2/3, 3 tabs days 4/5, 2 tabs days 6/7, 1 tab days 8/. Nurtec ODT 75 mg tablet,disintegrating 75 mg PO DAILY PRN (Reason: migraine headache) Qty: 10 0RF Rx Instructions: max 1 tablet in 24 hours. ondansetron 4 mg tablet,disintegrating 4 mg PO Q6H PRN (Reason: nausea and vomiting) Qty: 10 0RF Continued levetiracetam [Keppra] 500 mg tablet 1,000 mg PO BID Qty: 360 3RF albuterol sulfate 1.25 mg/3 mL solution for nebulization 1.25 mg inhalation QID PRN (Reason: shortness of breath or wheezing) Qty: 90 1RF lamotrigine [Lamictal] 100 mg tablet 100 mg PO BID Qty: 60 5RF Zyrtec 10 mg capsule 10 mg PO DAILY PRN (Reason: Congestion) azelastine 205.5 mcg (0.15 %) spray,non-aerosol 1 spray intranasal BID Rx Instructions: administer into each nostril benzonatate 200 mg capsule 200 mg PO TID PRN (Reason: cough) Qty: 30 0RF montelukast 10 mg tablet 10 mg PO DAILY Qty: 30 2RF fluticasone propion-salmeterol [Advair Diskus] 500-50 mcg/dose blister with device 1 inh INHALATION BID Qty: 1 5RF levothyroxine 50 mcg tablet 50 mcg PO QAM Qty: 30 5RF Rx Instructions: TOTAL DOSE 250 MCG--TAKES WITH 200 MCG TAB. levothyroxine 200 mcg tablet 200 mcg PO QAM Qty: 30 0RF Rx Instructions: TOTAL DOSE 250 MCG--TAKES WITH 50 MCG TAB. cyanocobalamin (vitamin B-12) [Vitamin B-12] 1,000 mcg Tablet 1,000 mcg PO DAILY epinephrine [EpiPen] 0.3 mg/0.3 mL Auto-Injector 0.3 mg IM DIRECTED PRN (Reason: Allergic Reaction) zolpidem 5 mg tablet 5 mg PO HS albuterol sulfate 90 mcg/actuation HFA aerosol inhaler 1 - 2 inh inhalation QID PRN (Reason: Shortness Of Breath) Held naproxen 500 mg tablet 500 mg PO BID PRN (Reason: pain) Qty: 14 1RF Hold Instructions: hold while taking prednisone ibuprofen 800 mg tablet 800 mg PO Q6H PRN (Reason: Pain) Hold Instructions: hold while taking prednisone Discharge Orders: Discharge Order (Routine); Ordered 08/09/22 Ordered By: Tye Natarajan/Other Patient Handouts: Prediabetes, 5 Steps for Eating Healthier, Managing Diabetes: The A1C Test Admission Data Admit Date/Time: 08/05/22 18:41 Attending Provider: Tye Donohue Admit Provider: Tye Samaniego Primary Care Provider: Rah Triana Other Providers: Vimal Adams ; Ernesto Burleson ; Keila Vicente ; Nat Carlisle ; Andrew Rios Other Interventions: Discharge Summary Assessment (RN) Last Done: 08/09/22 15:47 Coding Diagnoses Stroke-like symptoms R29.90 Seizure disorder G40.909 Severe obstructive sleep apnea G47.33 Asthma J45.909 Hypothyroidism E03.9
[2022-08-10 23:38] LABS: Lamictal(Lamotrigine) <0.5 mcg/mL (2.5-15.0); Levetiracetam Keppra 9.1 mcg/mL (6.0-46.0)
== END 2022-08-09 16:17 | disposition home health service (06) | DRG 92 ==
LOC: ED 16:53 → 1E 18:41 → SUATTDRO 18:41 → 1E 20:30 → 2E 08-06 21:20

== ENCOUNTER 2024-05-03 19:13 | Observation (INO) ==
[2024-05-03 20:48] LABS: Basophils # (auto) 0.04 K/uL (0.00-0.20); Basophils % (auto) 0.3 %; Eosinophils # (auto) 0.28 K/uL (0.00-0.50); Eosinophils % (auto) 2.3 %; Hematocrit (blood only) 38.1 % (37.0-47.0); Hemoglobin 12.5 g/dl (12.0-16.0); Immature Granulocytes # (auto) 0.05 K/uL (0.01-0.20); Immature Granulocytes % (auto) 0.4 %; Lymphocytes # (auto) 2.71 K/uL (1.20-3.40); Mean Corpuscular Hemoglobin 30.3 pg (25.0-34.0); Mean Corpuscular Hgb Conc 32.8 g/dL (32.0-36.0); Mean Corpuscular Volume 92.3 fL (80.0-100.0); Mean Platelet Volume 10.1 fL (9.4-12.4); Monocytes # (auto) 0.81 K/uL (0.11-0.59); Monocytes % (auto) 6.6 %; Neutrophils # (auto) 8.44 K/uL (1.40-6.50); Neutrophils % (auto) 68.4 %; Platelet Count 298 K/uL (130-400); RDW Standard Deviation 44.2 fL (36.4-46.3); Red Blood Count 4.13 M/uL (4.20-5.40); White Blood Count 12.33 K/ul (4.8-10.8)
[2024-05-03 21:04] LABS: Alanine Aminotransferase 25 U/L (7-52); Albumin Globulin Ratio 1.7 (0.9-2); Albumin Level 4.2 gm/dl (3.4-5.0); Alkaline Phosphatase 86 U/L (34-104); Anion Gap 6 (3-11); Aspartate Aminotransferase 21 U/L (13-39); BUN Creatinine Ratio 17.6 (10-20); Bilirubin,Total 0.3 mg/dl (0.2-1.0); Blood Urea Nitrogen 12 mg/dl (6-23); Calcium 9.7 mg/dl (8.6-10.3); Carbon Dioxide 28 mmol/L (21-32); Chloride 107 mmol/L (98-107); Globulin 2.5 gm/dl (2.5-4.0); Glucose 160 mg/dl (70-99(Fasting)); Lipase 27 U/L (11-82); Sodium 141 mmol/L (136-145); Total Protein 6.7 gm/dl (6.0-8.3)
[2024-05-03] MEDS: LORazepam 2 MG/1 ML VIAL IV STA (21:09)
[2024-05-03] MEDS: LORazepam 2 MG/1 ML VIAL ONE (21:10)
--- NOTE | 2024-05-03 21:17 | Emergency Department Note ---
Impression & Plan Biliary colic, Seizure, Right upper quadrant abdominal pain, Nausea & vomiting, Acute dehydration ED Provider Note NAME: RANULFO ROLLINS AGE: 54 SEX: F : 1970 ARRIVES VIA: Ambulance INFORMANT: Patient, ED PROVIDER(S): Godwin Ayala MD CHIEF COMPLAINT: Abdominal pain MEDICAL DECISION MAKING: Patient presents due to concern for abdominal pain IV was established and blood work is obtained. During initial assessment the patient just had a grand mal seizure. The patient did receive IV Ativan. Patient subsequently came to is awake alert and following commands. The patient does have a history of the VNS. Patient might of had a breakthrough seizure secondary to the pain that she has been experiencing. CT abdomen pelvis ordered along with CT of the head. Patient was ordered IV morphine and IV Zofran. IV fluids also ordered. Patient's blood work shows a white count of 12 with a normal H&H and platelet count kidney function is unremarkable. Urinalysis negative for blood or infection. Patient ordered additional IV morphine. Reviewed the patient CT did show concern for a gallstone. Patient CT head negative. Formal impression 1 cm left adrenal nodule. Appendix not visible but no free fluid or pneumoperitoneum. 13 mm calcified gallstone within nondilated gallbladder no biliary ductal dilatation or choledocholithiasis noted. I did inform the patient of these findings. Patient feels as though she is having worsening pain. Patient was ordered IV Tylenol and IV Toradol. I did speak with neurology on service who recommended extra 1 g of Keppra currently but to resume the patient's normal medications. Patient may have had a breakthrough seizure secondary to her pain. I did speak the on-call hospitalist service BEULAH Seals Dr. the patient was admitted for biliary colic. Discussion w/ other healthcare providers: Dr. Gifford neurology Jeanette Wood PA-C and Dr. Belle inpatient medicine service Prior /Outside records reviewed: None Differential diagnosis: Appendicitis, ovarian cyst, ovarian torsion, ectopic , TOA, PID, diverticulitis, UTI, obstruction, inflammatory bowel disease, renal colic, PUD, pancreatitis, biliary pathology, hernia, volvulus, constipation, as well as other pathologies were considered. Diagnostics, as interpreted by me: ECG: None Cardiac monitoring: An order was placed for continuous cardiac monitoring. The monitor shows a rate of 67 with sinus rhythm. Patient was placed on pulse oximetry Medical decision rules: None Imaging studies: [I informally interpreted the patient's CT abdomen pelvis which does show a likely gallstone within the gallbladder but no obvious gallbladder dilation or pericholecystic fluid with formal report to follow.] HPI: Patient presents due to concern for abdominal pain. Patient reports that the abdominal pain is in the right abdomen sometimes will go to the right shoulder blade. The patient states that it has been intermittent over the last week but seem to be worsening just in the last 24 hours. The patient states this morning she had some worsening pain and did eat some greasy eggs and breakfast. Patient states that she did have worsening pain thereafter. The patient over the last week has taken [id number] medications including Tylenol ibuprofen as well as stomach medication. Patient denies any chest pains or shortness of breath. Patient does still have her gallbladder. PAST MEDICAL HISTORY: See Below PAST SURGICAL HISTORY: See Below SOCIAL HISTORY: See Below HOME MEDICATIONS: See Below ALLERGIES: See Below VITALS: See Below PHYSICAL EXAMINATION: GENERAL: NAD, non-toxic. EYE EXAM: Normal conjunctiva. PERRL, no anisocoria and EOM's grossly intact w/o pain. OROPHARYNX: Moist mucus membranes, grossly normal dentition. NECK: Trachea midline, no stridor. Supple, no nuchal rigidity, no adenopathy, non-tender. No signs of meningismus. FROM of the neck with good chin to chest and neck extension. LUNGS: Clear to auscultation. Normal chest wall mechanics. HEART: NSR, no MRG. ABDOMEN: Abdomen soft, right upper quadrant pain, no masses, no rebound or guarding. BACK: No CVA TTP. SKIN: No rashes and no bruising. UPPER EXTREMITIES: Upper extremities are grossly normal. LOWER EXTREMITIES: Grossly normal, no edema. NEURO EXAM: A&O x3, cranial nerves II-XII grossly intact, normal speech, moves all 4 extremities. 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 24 hr [employer] Stroke-like symptoms 2021, "found to not be a stroke," no current issues Severe obstructive sleep apnea duplicate Headache resolved GILBERTO on CPAP VTE (venous thromboembolism) history of RLE DVT s/p anticoagulation Breast cancer dx 2002; In remission s/p lumpectomy and chemotherapy Hypothyroidism Surgical History History of arthroscopy of left knee 08/2023 History of carpal tunnel surgery of left wrist Hx of thumb surgery tendon and ligament sx Hx of appendectomy History of esophagogastroduodenoscopy (EGD) Hx of colonoscopy Hx of tonsillectomy History of lumpectomy left History of wisdom tooth extraction Family History Mother Breast cancer Grandmother (Maternal) Breast cancer Grandmother (Maternal) Myocardial infarction Grandfather (Maternal) Myocardial infarction Aunt Diabetes Ovarian cancer Uncle Diabetes Grandmother (Paternal) Diabetes Sister Ovarian cancer Breast cancer Other Cancer No family history of adverse response to anesthesia Denies family history of Prostate cancer Colorectal cancer Social History Smoking Status: Former smoker Tobacco Type: Cigarettes Age Started Using Tobacco: 16; Age Quit Using Tobacco: 41; packs per day: 0; Cigarettes Per Day: 1/2 PPD; Second Hand Exposure: Yes; Do You Dip or Chew Tobacco: No; Hx Alcohol Use: No Hx Substance Use: No Preferred Language: Croatian Communication Ability: Effective Visual Impairment: No Limitations Hearing Ability: Normal Rewinder Operator Required: No Beliefs That Will Affect Care: None marital status: Single Current Living Situation: Other Current Living Situation Comment: lives w/ friend/partner current occupational status: disabled How many Children do You have: 0 How many Children do You have Comment: adopted-2 Feels Safe at Home: Yes Safety Concerns: Feels Safe At This Time Childhood Exposure to Second-Hand Smoke: No Diet: regular caffeine: Yes during the past year weight has: increased > 10 lbs Dental Care, Regularly: Yes Physical Activity Frequency: Does not Exercise Seatbelt Use: always Sunscreen Use: Yes Assistive Devices: Glasses Allergies Allergies Allergy/AdvReac Type Severity Reaction Status Date / Time ampicillin Allergy Severe Anaphylaxis Verified 04/05/24 15:24 bee venom protein (honey bee) Allergy Severe Anaphylaxis Verified 04/05/24 15:24 droperidol [From Inapsine] Allergy Severe TONGUE Verified 04/05/24 15:24 SWELLED, HIVES Penicillins Allergy Severe Anaphylaxis Verified 04/05/24 15:24 promethazine [From Phenergan] Allergy Intermediate Hives Verified 04/05/24 15:24 Home Meds Home Medications Medication Instructions Recorded Confirmed levothyroxine 300 mcg tablet 300 mcg PO UD 12/18/23 04/05/24 Previous Rx's Medication Instructions Recorded epinephrine 0.3 mg/0.3 mL 0.3 mg (0.3 mL) IM DIRECTED PRN 05/23/23 injection, auto-injector (EpiPen) Allergic Reaction #2 ea lamotrigine 150 mg tablet 150 mg PO BID #180 tabs 09/07/23 lamotrigine 25 mg tablet 25 mg PO BID seizure #180 tabs 09/07/23 levetiracetam 500 mg tablet 1,000 mg (2 x 500 mg) PO BID #360 09/07/23 (Keppra) tabs albuterol sulfate 90 mcg/actuation 2 inh inhalation Q4H PRN shortness 10/11/23 aerosol inhaler of breath or wheezing #8.5 grams hydroxyzine HCl 25 mg tablet 25 mg PO QID #120 tabs 12/04/23 midazolam 5 mg/spray (0.1 mL) 1 spray intranasal .COMPLEX #2 ea 01/02/24 nasal spray (Nayzilam) citalopram 40 mg tablet 40 mg PO HS #90 tabs 04/18/24 Results & Data (ED) Vital Signs Vital Signs - 24 hr 05/03/24 19:34 05/03/24 20:35 05/03/24 21:03 Temperature 36.5 C Temperature Source Temporal Artery Scan Pulse Rate 83 Pulse Rate [Apical] 84 Respiratory Rate 18 18 Respiratory Effort / Characteristics Blood Pressure 142/84 H Blood Pressure [Left Arm] 144/69 H Blood Pressure Mean 103 Blood Pressure Mean [Left Arm] 94 Blood Pressure Position [Left Arm] Pulse Oximetry 95 96 Oxygen Delivery Method Room Air Room Air Sepsis Recent Fever Within 48 Hours No Sepsis New/Unexplained Change in Mental Status No Sepsis Action Taken by Nursing No Action Required 05/03/24 21:16 05/03/24 23:00 05/03/24 23:00 Temperature Temperature Source Pulse Rate 87 Pulse Rate [Apical] 78 81 Respiratory Rate 18 18 Respiratory Effort / Characteristics Non-Labored Blood Pressure Blood Pressure [Left Arm] 146/72 H 146/72 H Blood Pressure Mean Blood Pressure Mean [Left Arm] 96 96 Blood Pressure Position [Left Arm] Lying Pulse Oximetry 98 98 Oxygen Delivery Method Room Air Sepsis Recent Fever Within 48 Hours Sepsis New/Unexplained Change in Mental Status Sepsis Action Taken by Nursing 05/04/24 00:00 Temperature 36.8 C Temperature Source Oral Pulse Rate Pulse Rate [Apical] 68 Respiratory Rate 17 Respiratory Effort / Characteristics Non-Labored Spontaneous Blood Pressure Blood Pressure [Left Arm] 112/63 Blood Pressure Mean Blood Pressure Mean [Left Arm] 79 Blood Pressure Position [Left Arm] Pulse Oximetry 96 Oxygen Delivery Method Room Air Sepsis Recent Fever Within 48 Hours Sepsis New/Unexplained Change in Mental Status Sepsis Action Taken by Alf Medications Current Medication List: was personally reviewed by me Laboratory Data Attestation: I reviewed the patient's lab results. 05/03/24 20:30 05/03/24 20:30 Lab Results 05/03/24 05/03/24 Range/Units 20:30 23:30 WBC 12.33 H (4.8-10.8) K/ul RBC 4.13 L (4.20-5.40) M/uL Hgb 12.5 (12.0-16.0) g/dl Hct 38.1 (37.0-47.0) % MCV 92.3 (80.0-100.0) fL MCH 30.3 (25.0-34.0) pg MCHC 32.8 (32.0-36.0) g/dL RDW Std Deviation 44.2 (36.4-46.3) fL RDW Coeff of Doom 13.0 (11.5-14.5) % Plt Count 298 (130-400) K/uL MPV 10.1 (9.4-12.4) fL Immature Gran % (Auto) 0.4 % Neut % (Auto) 68.4 % Lymph % (Auto) 22.0 % Mccreary % (Auto) 6.6 % Eos % (Auto) 2.3 % Baso % (Auto) 0.3 % Neut # (Auto) 8.44 H (1.40-6.50) K/uL Lymph # (Auto) 2.71 (1.20-3.40) K/uL Mccreary # (Auto) 0.81 H (0.11-0.59) K/uL Eos # (Auto) 0.28 (0.00-0.50) K/uL Baso # (Auto) 0.04 (0.00-0.20) K/uL Immature Gran # (Auto) 0.05 (0.01-0.20) K/uL Sodium 141 (136-145) mmol/L Potassium 4.0 (3.5-5.1) mmol/L Chloride 107 (98-107) mmol/L Carbon Dioxide 28 (21-32) mmol/L Anion Gap 6 (3-11) BUN 12 (6-23) mg/dl Creatinine 0.68 (0.6-1.2) mg/dl Est Cr Clr Drug Dosing Not Reportable eGFR 103.43 BUN/Creatinine Ratio 17.6 (10-20) Glucose 160 H (70-99(Fasting)) mg/dl Calcium 9.7 (8.6-10.3) mg/dl Magnesium 2.1 (1.7-2.4) mg/dl Total Bilirubin 0.3 (0.2-1.0) mg/dl AST 21 (13-39) U/L ALT 25 (7-52) U/L Alkaline Phosphatase 86 (34-104) U/L Total Protein 6.7 (6.0-8.3) gm/dl Albumin 4.2 (3.4-5.0) gm/dl Globulin 2.5 (2.5-4.0) gm/dl Albumin/Globulin Ratio 1.7 (0.9-2) Lipase 27 (11-82) U/L Urine Color Yellow Urine Appearance Clear (Clear) Urine pH 5.5 (4.5-7.5) Ur Specific [place] > 1.045 H (1.000-1.030) Urine Protein Negative (Negative) Urine Glucose (UA) Negative (Negative) Urine Ketones Negative (Negative) Urine Blood Negative (Negative) Urine Nitrite Negative (Negative) Urine Bilirubin Negative (Negative) Urine Urobilinogen Negative (Negative) Ur Leukocyte Esterase Negative (Negative) Administered Medications Hydromorphone HCl (Hydromorphone Inj 1 Mg/Ml Syringe) 1 mg IV Q3H PRN PRN Reason: Severe Pain (Scale 7, 8, 9,10) Stop: 05/18/24 02:09 Last Admin: 05/04/24 15:17 Dose: 1 mg Documented By: Admin: 05/04/24 08:24 Dose: 1 mg Documented By: Admin: 05/04/24 03:23 Dose: 1 mg Documented By: LEOBARDO Acetaminophen (Ofirmev) 1,000 mg in 100 mls @ 400 mls/hr IV Q8H [facility] Stop: 05/07/24 07:59 Last Infusion: 05/04/24 10:15 Dose: Infused Documented By: Admin: 05/04/24 10:00 Dose: 400 mls/hr Documented By: YONATHAN Pantoprazole Sodium (Protonix) 40 mg in 10 mls @ 5 mls/min IV BID [facility] Stop: 06/03/24 08:59 Last Admin: 05/04/24 09:28 Dose: 5 mls/min Documented By: YONATHAN Lamotrigine (Lamotrigine 25 Mg Tab) 75 mg PO BID [facility]; Protocol Stop: 06/03/24 08:59 Last Admin: 05/04/24 10:30 Dose: 75 mg Documented By: YONATHAN Lamotrigine (Lamotrigine 100 Mg Tab) 100 mg PO BID [facility] Stop: 06/03/24 08:59 Last Admin: 05/04/24 10:31 Dose: 100 mg Documented By: YONATHAN Levetiracetam (Levetiracetam 500 Mg/5 Ml Vial) 1,000 mg IV BID MARIELOS Stop: 06/03/24 09:59 Last Admin: 05/04/24 10:34 Dose: 1,000 mg Documented By: YONATHAN Discontinued Medications Hydromorphone HCl (Hydromorphone Inj 0.5 Mg/0.5 Ml Syr) 0.5 mg IV NOW STA Stop: 05/04/24 00:29 Last Admin: 05/04/24 02:15 Dose: Not Given Documented By: ANA Sodium Chloride (Nss) 1,000 mls @ 999 mls/hr IV .Q1H1M ONE Stop: 05/03/24 22:07 Last Infusion: 05/03/24 23:27 Dose: Infused Documented By: Admin: 05/03/24 21:48 Dose: 999 mls/hr Documented By: MASON Acetaminophen (Ofirmev) 1,000 mg in 100 mls @ 400 mls/hr IV NOW STA Stop: 05/04/24 00:20 Last Infusion: 05/04/24 00:41 Dose: Infused Documented By: Admin: 05/04/24 00:12 Dose: 400 mls/hr Documented By: ANA Lactated Ringer's (Lr) 1,000 mls @ 125 mls/hr IV .Q8H MARIELOS Stop: 05/04/24 08:44 Last Infusion: 05/04/24 11:18 Dose: Infused Documented By: Infusion: 05/04/24 03:25 Dose: 125 mls/hr Documented By: Infusion: 05/04/24 03:25 Dose: 80 mls/hr Documented By: Infusion: 05/04/24 01:43 Dose: 0 mls/hr Documented By: Infusion: 05/04/24 01:16 Dose: 0 mls/hr Documented By: Admin: 05/04/24 01:05 Dose: 80 mls/hr Documented By: ANA Pantoprazole Sodium (Protonix) 40 mg in 10 mls @ 5 mls/min IV NOW ONE Stop: 05/04/24 00:53 Last Admin: 05/04/24 01:04 Dose: 5 mls/min Documented By: ANA Lactated Ringer's (Lr) 1,000 mls @ 999 mls/hr IV .Q1H1M ONE Stop: 05/04/24 02:10 Last Infusion: 05/04/24 02:48 Dose: Infused Documented By: Admin: 05/04/24 01:20 Dose: 999 mls/hr Documented By: ANA Ioversol (Optiray 320 100ml) 90 ml IV ONCE ONE Stop: 05/03/24 21:36 Last Admin: 05/03/24 21:35 Dose: 90 ml Documented By: HALEIGH Ketorolac Tromethamine (Ketorolac Tromethamine 15 Mg/Ml Vial) 10 mg IV NOW ONE Stop: 05/04/24 00:07 Last Admin: 05/04/24 00:12 Dose: 10 mg Documented By: ANA Levetiracetam (Levetiracetam 500 Mg/5 Ml Vial) 2,000 mg IV NOW STA Stop: 05/03/24 22:59 Last Admin: 05/04/24 00:11 Dose: 2,000 mg Documented By: ANA Lorazepam (Lorazepam 2 Mg/1 Ml Vial) Confirm Administered Dose 2 mg .ROUTE .STK- MED ONE Stop: 05/03/24 21:08 Last Admin: 05/03/24 21:10 Dose: Not Given Documented By: MASON Lorazepam (Lorazepam 2 Mg/1 Ml Vial) 1 mg IV NOW STA Stop: 05/03/24 21:08 Last Admin: 05/03/24 21:09 Dose: 1 mg Documented By: MASON Morphine Sulfate (Morphine Sulfate 4 Mg/Ml 1 Ml Carp\\Vial) 4 mg IV NOW STA Stop: 05/03/24 21:28 Last Admin: 05/03/24 21:50 Dose: 4 mg Documented By: MASON Morphine Sulfate (Morphine Sulfate 4 Mg/Ml 1 Ml Carp\\Vial) 4 mg IV NOW STA Stop: 05/03/24 22:55 Last Admin: 05/03/24 23:31 Dose: 4 mg Documented By: ANA Ondansetron HCl (Ondansetron Inj 2 Mg/Ml 2 Ml Vial) 4 mg IV NOW STA Stop: 05/03/24 21:28 Last Admin: 05/03/24 21:50 Dose: 4 mg Documented By: MASON Imaging Data Radiologist's Impression: Abdomen/Pelvis CT 05/03/24 20:53 Exam(s): CT ABDOMEN + PELVIS With Contrast IV Amt: 90ml optiray 320 EXAM: CT Abdomen and Pelvis With Intravenous Contrast CLINICAL HISTORY: Reason for exam: abdominal pain. TECHNIQUE: Axial computed tomography images of the abdomen and pelvis with intravenous contrast. CTDI is 28.07 mGy and DLP is 1573.71 mGy-cm. Automated exposure control was utilized for the study. A dose lowering technique was utilized adhering to the principles of ALARA. CONTRAST: Patient received 90ml optiray 320 of IV contrast COMPARISON: No relevant prior studies available. FINDINGS: Lung bases: Unremarkable. No mass. No consolidation. ABDOMEN: Liver: There is fatty infiltration of the liver and hepatomegaly with the liver measuring 21 cm craniocaudad. No focal liver mass lesion is seen. Gallbladder and bile ducts: There is a 13 mm calcified gallstone within a nondilated gallbladder. No surrounding inflammation, biliary duct dilation, or choledocholithiasis is seen. Pancreas: Unremarkable. No mass. No ductal dilation. Spleen: Unremarkable. No splenomegaly. Adrenals: 1 cm left adrenal nodule measures 54 HU which is nonspecific. Kidneys and ureters: Unremarkable. No solid mass. No hydronephrosis. Stomach and bowel: Unremarkable. No obstruction. No mucosal thickening. PELVIS: Appendix: The appendix is not visible. Bowel loops are nondilated. No pneumoperitoneum, free fluid, or acute inflammatory changes are seen involving the bowel. Bladder: The urinary bladder is mostly decompressed but otherwise unremarkable. Reproductive: Unremarkable as visualized. ABDOMEN and PELVIS: Intraperitoneal space: See above. Bones/joints: No acute fracture. No dislocation. Soft tissues: Unremarkable. Vasculature: The abdominal aorta is mildly calcified but nondilated. Lymph nodes: Unremarkable. No enlarged lymph nodes. IMPRESSION: 1. 1 cm left adrenal nodule measures 54 HU which is nonspecific. If there is no history of malignancy consider a follow-up low dose, non- contrast adrenal CT or chemical-shift adrenal MRI in 12 months. If there is a history of malignancy recommend a low dose, non-emergent, non- contrast adrenal CT or chemical-shift adrenal MRI follow-up study. 2. The appendix is not visible. Bowel loops are nondilated. No pneumoperitoneum, free fluid, or acute inflammatory changes are seen involving the bowel. 3. There is a 13 mm calcified gallstone within a nondilated gallbladder. No surrounding inflammation, biliary duct dilation, or choledocholithiasis is seen. Electronically signed by: Addy Samson MD 05/03/24 22:[address] 05/03/24 21:07 Exam(s): CT HEAD Without Contrast EXAM: CT Head Without Intravenous Contrast CLINICAL HISTORY: Reason for exam: seizure. TECHNIQUE: Axial computed tomography images of the head/brain without intravenous contrast. CTDI is 36.67 mGy and DLP is 625.8 mGy-cm. Automated exposure control was utilized for the study. A dose lowering technique was utilized adhering to the principles of ALARA. COMPARISON: April 07, 2024 FINDINGS: Brain: Unremarkable. No hemorrhage. No significant white matter disease. No edema. Ventricles: Unremarkable. No ventriculomegaly. Bones/joints: Unremarkable. No acute fracture. Soft tissues: Unremarkable. Sinuses: Trace amount mucosal thickening in the right maxillary sinus, similar to previous. No gas/fluid larger seen. The remaining sinuses are unremarkable. Mastoid air cells: Unremarkable as visualized. No mastoid effusion. IMPRESSION: No acute findings in the head/brain. Electronically signed by: Addy Samson MD 05/03/24 22:45 PM Discharge Plan Visit Data Chief Complaint: Abdominal Pain Stated Complaint: ABDOMINAL PAIN X1 WEEK ED Provider: Godwin Ayala Discharge Problem: Biliary colic, Seizure, Right upper quadrant abdominal pain, Nausea & vomiting, Acute dehydration Patient Disposition: Admitted As Inpatient Discharge Instructions Interventions: ED Discharge Assessment Last Done: 05/04/24 01:41 Discharge Problem: Nausea & vomiting Qualifiers: Vomiting type: unspecified Qualified Code(s): R11.2 - Nausea with vomiting, unspecified
[2024-05-03 21:25] LABS: Magnesium 2.1 mg/dl (1.7-2.4)
[2024-05-03] MEDS: OPTIRAY 320 100ml IV ONE (21:35)
[2024-05-03] MEDS: SODIUM CHLORIDE 0.9% 1,000 ML IV ONE (21:48)
[2024-05-03] MEDS: MoRPHine SULFATE 4 MG/ML 1 ML CARP\\VIAL IV STA ×2 (21:50→23:31)
[2024-05-03] MEDS: ONDANSETRON INJ 2 MG/ML 2 ML VIAL IV STA (21:50)
--- NOTE | 2024-05-03 22:46 | CT Scan Report ---
Exam(s): CT HEAD Without Contrast EXAM: CT Head Without Intravenous Contrast CLINICAL HISTORY: Reason for exam: seizure. TECHNIQUE: Axial computed tomography images of the head/brain without intravenous contrast. CTDI is 36.67 mGy and DLP is 625.8 mGy-cm. Automated exposure control was utilized for the study. A dose lowering technique was utilized adhering to the principles of ALARA. COMPARISON: April 07, 2024 FINDINGS: Brain: Unremarkable. No hemorrhage. No significant white matter disease. No edema. Ventricles: Unremarkable. No ventriculomegaly. Bones/joints: Unremarkable. No acute fracture. Soft tissues: Unremarkable. Sinuses: Trace amount mucosal thickening in the right maxillary sinus, similar to previous. No gas/fluid larger seen. The remaining sinuses are unremarkable. Mastoid air cells: Unremarkable as visualized. No mastoid effusion. IMPRESSION: No acute findings in the head/brain. Electronically signed by: Addy Samson MD 05/03/24 22:45 PM
--- NOTE | 2024-05-03 22:50 | CT Scan Report ---
Exam(s): CT ABDOMEN + PELVIS With Contrast IV Amt: 90ml optiray 320 EXAM: CT Abdomen and Pelvis With Intravenous Contrast CLINICAL HISTORY: Reason for exam: abdominal pain. TECHNIQUE: Axial computed tomography images of the abdomen and pelvis with intravenous contrast. CTDI is 28.07 mGy and DLP is 1573.71 mGy-cm. Automated exposure control was utilized for the study. A dose lowering technique was utilized adhering to the principles of ALARA. CONTRAST: Patient received 90ml optiray 320 of IV contrast COMPARISON: No relevant prior studies available. FINDINGS: Lung bases: Unremarkable. No mass. No consolidation. ABDOMEN: Liver: There is fatty infiltration of the liver and hepatomegaly with the liver measuring 21 cm craniocaudad. No focal liver mass lesion is seen. Gallbladder and bile ducts: There is a 13 mm calcified gallstone within a nondilated gallbladder. No surrounding inflammation, biliary duct dilation, or choledocholithiasis is seen. Pancreas: Unremarkable. No mass. No ductal dilation. Spleen: Unremarkable. No splenomegaly. Adrenals: 1 cm left adrenal nodule measures 54 HU which is nonspecific. Kidneys and ureters: Unremarkable. No solid mass. No hydronephrosis. Stomach and bowel: Unremarkable. No obstruction. No mucosal thickening. PELVIS: Appendix: The appendix is not visible. Bowel loops are nondilated. No pneumoperitoneum, free fluid, or acute inflammatory changes are seen involving the bowel. Bladder: The urinary bladder is mostly decompressed but otherwise unremarkable. Reproductive: Unremarkable as visualized. ABDOMEN and PELVIS: Intraperitoneal space: See above. Bones/joints: No acute fracture. No dislocation. Soft tissues: Unremarkable. Vasculature: The abdominal aorta is mildly calcified but nondilated. Lymph nodes: Unremarkable. No enlarged lymph nodes. IMPRESSION: 1. 1 cm left adrenal nodule measures 54 HU which is nonspecific. If there is no history of malignancy consider a follow-up low dose, non- contrast adrenal CT or chemical-shift adrenal MRI in 12 months. If there is a history of malignancy recommend a low dose, non-emergent, non- contrast adrenal CT or chemical-shift adrenal MRI follow-up study. 2. The appendix is not visible. Bowel loops are nondilated. No pneumoperitoneum, free fluid, or acute inflammatory changes are seen involving the bowel. 3. There is a 13 mm calcified gallstone within a nondilated gallbladder. No surrounding inflammation, biliary duct dilation, or choledocholithiasis is seen. Electronically signed by: Addy Samson MD 05/03/24 22:49 PM
[2024-05-03 23:50] LABS: Appearance Urine Clear (Clear); Bilirubin Urine Negative (Negative); Blood Urine Negative (Negative); Color Urine Yellow; Glucose Urine UA Negative (Negative); Ketones Urine Negative (Negative); Leukocyte Esterase Urine Negative (Negative); Nitrite Urine Negative (Negative); Protein Urine Negative (Negative); Specific Gravity Urine > 1.045 (1.000-1.030); Urobilinogen Urine Negative (Negative); pH Urine 5.5 (4.5-7.5)
[2024-05-04] MEDS: levETIRAcetam 500 MG/5 ML VIAL IV STA (00:11)
[2024-05-04] MEDS: KETOROLAC TROMETHAMINE 15 MG/ML VIAL IV ONE (00:12)
[2024-05-04] MEDS: ACETAMINOPHEN 1,000 MG/100 ML VIAL IV STA (00:12)
--- NOTE | 2024-05-04 00:16 | History & Physical Report ---
Date of Service May 04, 2024 Assessment & Plan (1) Biliary colic: (2) Nausea and vomiting: (3) Diarrhea: (4) Acute dehydration: (5) Hypotension: (6) Seizure: Plan Patient is a 54-year-old female with a past medical history of PFO, anemia, seizure disorder, GILBERTO, hypothyroidism, breast cancer. She resented via EMS due to right sided abdominal pain x 1 week with nausea, vomiting, and diarrhea. Upon arrival to ED patient had a witnessed grand mal seizure that lasted 45 to 60 seconds. ER provider stated he spoke with on-call neurologist, Dr. Gifford, who recommended patient have additional 1 g of Keppra on to her evening scheduled [address] revealed 13 mm calcified gallstone within nondilated gallbladder, with an adequate pain control in ED, patient is being admitted for biliary colic. #Biliary colic/vomiting/diarrhea/dehydration LFTs WNL AP CT revealed 13 mm calcified gallstone within nondilated gallbladder, no surrounding inflammation, biliary ductal dilation, or choledocholithiasis seen Patient with significant pain after IV Morphine 8mg and 2g IV Keppra - Tylenol scheduled, Toradol prn, and Dilaudid 0.5/1mg (for pain not relieved by #1 and 2) - Narcan as needed Pantoprazole IV BID General Surgery team consulted N.p.o. - hold all nonessential p.o. medications Zofran as needed Acute dehydration 2/2 vomiting and diarrhea urine specific gravity > 1.045, receive 2L bolus, LR at 125 mL/hour differential includes but not limited to biliary colic, peptic ulcer #hypotension BP dropped to 106/66 at time of admission suspect 2/2 IV opioid use and pain echo 2022 showed EF 55-60%, mild LVH, mild left atrial dilation, PFO Will bolus 1 L of LR at time of admission and continue LR at 125 mL/hour #seizure disorder Grand mal seizure in ED secondary to pain, received Ativan 1 Mg IV S/p VNS 12/06/[address] negative On-call neurologist recommended additional 1 g of IV Keppra With n.p.o. status above, transition Keppra to IV Continue Lamictal seizure precautions #leukocytosis WBC 12.33 chronically elevated, suspect worsened with stress of above trend CBC #incidental finding AP CT revealed 1 cm left adrenal nodule that measures 54 HU, nonspecific - if no history of malignancy, consider follow-up low-dose noncontrast adrenal CT or chemical shift adrenal MRI in 12 months - If history of malignancy, recommend low-dose nonemergent noncontrast adrenal CT or chemical shift adrenal MRI follow-up study follow up with PCP Chronic stable diagnoses: OSACPAP at bedtime Depressionholding citalopram Anxietyholding hydroxyzine Hypothyroidismholding levothyroxine VTE ppx: SCDs, defer chemical ppx with possible surgical managment above Diet: NPO Dispo: Med/tele with IV opioids Admission and Anticipated Discharge Date Admission Date: 05/04/24 History of Present Illness Chief Complaint: abd pain Primary Care Provider: Rah Triana DO Patient is a 54-year-old female with a past medical history of PFO, anemia, seizure disorder, GILBERTO, hypothyroidism, breast cancer. She resented via EMS due to right sided abdominal pain x 1 week with nausea, vomiting, and diarrhea. Upon arrival to ED patient had a witnessed grand mal seizure that lasted 45 to 60 seconds. ER provider stated he spoke with on-call neurologist, Dr. Gifford, who recommended patient have additional 1 g of Keppra to her evening scheduled [address] revealed 13 mm calcified gallstone within nondilated gallbladder, with an adequate pain control in ED, patient is being admitted for biliary colic. Patient seen at bedside.She was crying in pain and stated her pain is still 8/10 even after receiving 8 mg of IV morphine recently in the ED. She stated she has had right lower quadrant and right low back pain for approximately a week that has come and gone. It did get worse with meals. This morning she had 3 episodes of diarrhea and then developed significant right lower quadrant abdominal pain that has been constant since. She cannot get comfortable. She also endorses nausea and vomiting, vomiting approximately 4 times since arrival to ED as per patient. She stated she also feels feverish today. She denies any chest pain or shortness of breath. She has never had issues with her gallbladder before. Of note patient did have a grand mal seizure in the ED that lasted approximately 1 minute. She stated she did not feel it coming on, she typically does. Patient had vagal nerve stimulation in November 2023 and has not had a grand mal seizure since, but she stated she will still have breakthrough seizures and petit mall seizures. She is on Keppra 1000 Mg twice daily and Lamictal 175 Mg twice daily. Denies nicotine use, or chronic alcohol use. She uses CPAP at bedtime. Allergies Allergy/AdvReac Type Severity Reaction Status Date / Time ampicillin Allergy Severe Anaphylaxis Verified 04/05/24 15:24 bee venom protein (honey bee) Allergy Severe Anaphylaxis Verified 04/05/24 15:24 droperidol [From Inapsine] Allergy Severe TONGUE Verified 04/05/24 15:24 SWELLED, HIVES Penicillins Allergy Severe Anaphylaxis Verified 04/05/24 15:24 promethazine [From Phenergan] Allergy Intermediate Hives Verified 04/05/24 15:24 Home Medications Medication Instructions Recorded Confirmed Type epinephrine 0.3 mg/0.3 mL 0.3 mg (0.3 mL) IM DIRECTED PRN 05/23/23 04/05/24 Rx injection, auto-injector (EpiPen) Allergic Reaction #2 ea lamotrigine 150 mg tablet 150 mg PO BID #180 tabs 09/07/23 04/05/24 Rx lamotrigine 25 mg tablet 25 mg PO BID seizure #180 tabs 09/07/23 04/05/24 Rx levetiracetam 500 mg tablet 1,000 mg (2 x 500 mg) PO BID #360 09/07/23 04/05/24 Rx (Keppra) tabs albuterol sulfate 90 mcg/actuation 2 inh inhalation Q4H PRN shortness 10/11/23 04/05/24 Rx aerosol inhaler of breath or wheezing #8.5 grams hydroxyzine HCl 25 mg tablet 25 mg PO QID #120 tabs 12/04/23 04/05/24 Rx levothyroxine 300 mcg tablet 300 mcg PO UD 12/18/23 04/05/24 History midazolam 5 mg/spray (0.1 mL) 1 spray intranasal .COMPLEX #2 ea 01/02/24 04/05/24 Rx nasal spray (Nayzilam) citalopram 40 mg tablet 40 mg PO HS #90 tabs 04/18/24 Rx Past Med/Surg History Problem List (Updated 05/04/24 @ 15:53 by Godwin Ayala MD) Acute dehydration (Acute) Nausea & vomiting (Acute) Right upper quadrant abdominal pain (Acute) Biliary colic (Acute) Hypotension Seizure (Acute) most recent 2021 Acute dehydration Diarrhea Nausea and vomiting Biliary colic Routine gynecological examination Status post placement of VNS (vagus nerve stimulation) device Constipation Rectal bleeding Major depression S/P left knee arthroscopy Rebound headache Vitamin D deficiency Anemia Obesity (BMI 35.0-39.9 without comorbidity) Prediabetes PFO (patent foramen ovale) Jelani's paralysis Complicated migraine Insomnia Nocturnal hypoxemia Mild TBI Asthma inh/neb prn Seizure disorder Facial numbness (Acute) Breakthrough seizure (Acute) CHI (closed head injury) (Acute) Medical History History of COVID-19 End of 09/2023--fever, cough, head cold, no taste, was on paxlovid--all resolved Prediabetes PFO (patent foramen ovale) f/u dr. 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 Stroke-like symptoms 2021, "found to not be a stroke," no current issues Severe obstructive sleep apnea duplicate Headache resolved GILBERTO on CPAP VTE (venous thromboembolism) history of RLE DVT s/p anticoagulation Breast cancer dx 2002; In remission s/p lumpectomy and chemotherapy Hypothyroidism Surgical History History of arthroscopy of left knee 08/2023 History of carpal tunnel surgery of left wrist Hx of thumb surgery tendon and ligament sx Hx of appendectomy History of esophagogastroduodenoscopy (EGD) Hx of colonoscopy Hx of tonsillectomy History of lumpectomy left History of wisdom tooth extraction Family History Mother Breast cancer Grandmother (Maternal) Breast cancer Grandmother (Maternal) Myocardial infarction Grandfather (Maternal) Myocardial infarction Aunt Diabetes Ovarian cancer Uncle Diabetes Grandmother (Paternal) Diabetes Sister Ovarian cancer Breast cancer Other Cancer No family history of adverse response to anesthesia Denies family history of Prostate cancer Colorectal cancer Social History Smoking Status: Former smoker Tobacco Type: Cigarettes Age Started Using Tobacco: 16; Age Quit Using Tobacco: 41; packs per day: 0; Cigarettes Per Day: 1/2 PPD; Second Hand Exposure: Yes; Do You Dip or Chew Tobacco: No; Hx Alcohol Use: No Hx Substance Use: No Preferred Language: Spanish Communication Ability: Effective Visual Impairment: No Limitations Hearing Ability: Normal Casing In Line Setter Required: No Beliefs That Will Affect Care: None marital status: Single Current Living Situation: Other Current Living Situation Comment: lives w/ friend/partner current occupational status: disabled How many Children do You have: 0 How many Children do You have Comment: adopted-2 Feels Safe at Home: Yes Safety Concerns: Feels Safe At This Time Childhood Exposure to Second-Hand Smoke: No Diet: regular caffeine: Yes during the past year weight has: increased > 10 lbs Dental Care, Regularly: Yes Physical Activity Frequency: Does not Exercise Seatbelt Use: always Sunscreen Use: Yes Assistive Devices: Glasses Review of Systems Review of Systems: see HPI Physical Exam Physical Exam: The patient is awake, alert and oriented 3, Tearful, unable to get comfortable due to pain. HEENT- EOMI, mucous membranes Dry. Hearing grossly intact. Heart-normal S1 and S2. No murmurs, rubs or gallops. Lungs-clear bilaterally, no respiratory distress, no accessory muscle use. Abdomen-normal bowel sounds and soft. No ascites noted. tender to right lower quadrant. Extremities- no clubbing, cyanosis, or edema. Results & Data Results & Data Vital Signs (Past 12 Hours) Vital Signs Temp Pulse Pulse Resp BP BP Pulse Ox 05/03/24 23:00 81 18 146/72 H 98 05/03/24 23:00 78 18 146/72 H 98 05/03/24 21:16 87 05/03/24 21:03 84 18 144/69 H 96 05/03/24 20:35 05/03/24 19:34 36.5 C 83 18 142/84 H 95 O2 Del Method 05/03/24 23:00 Room Air 05/03/24 23:00 05/03/24 21:16 05/03/24 21:03 05/03/24 20:35 Room Air 05/03/24 19:34 Room Air Laboratory Results reviewed cbc, cmp, mag, lipase, ua Diagnostic Findings reviewed ap ct and head ct ECG Additional Comments: ordered with QT prolonging agents Code Status & VTE Plan Code Status full VTE Prophylaxis Plan VTE Prophylaxis will be ordered: Yes Supervising Physician Co-Signing Physician Notes Attending addendum: I have physically seen this patient, have supervised the MICHAELLE's activities, and agree with the H&P unless as otherwise noted. Assessment and Plan: The patient is a 54-year-old female with past medical history including PFO, anemia, seizure disorder, GILBERTO, hypothyroidism, and breast cancer. She presents to the emergency department via EMS due to right-sided abdominal pain over the past week, with the development of nausea, vomiting and diarrhea over the past 24 hours. Upon arrival to the emergency department she had a witnessed grand mal seizure that lasted about 45 to 60 seconds. She was advised to give Keppra 1 g IV by neurology on-call, [facility] of [facility] #Biliary colic/vomiting/diarrhea/dehydration- Elevated WBC, and normal LFTs CT scan reveals a 13 mm calcified gallstone within a nondilated gallbladder, with no surrounding inflammation, biliary ductal dilatation or choledocholithiasis being seen. Patient did receive Acetaminophen 1 g IV every 8 hours needed for mild pain or fever Toradol 15 mg IV every 6 hours needed for moderate pain Dilaudid 0.5 mg IV every 3 hours as needed for severe pain Narcan per protocol Pantoprazole 40 mg IV twice daily N.p.o. except essential medications Zofran 4 mg IV every 6 hours as needed General Surgery consulted and will assess the patient LR 125 mL/h Hypotension- Responding to IV fluids Monitor frequency and dosage of IV opioids Status post 1 L LR bolus in the ED Placed on LR 125 mL/h is noted Seizure disorder- As per neurology CTA head is negative Continue Lamictal Seizure precautions PG Care Time/CCT Total # of Minutes Spent Total Time Spent with Patient: Total time spent is greater than 50% in coordination of care (as documented) at patient's floor/unit and/or counseling patient: Coding Level of Care Code 75613 INT INP/OBS CARE 3/75MIN Diagnoses Biliary colic K80.50 Nausea and vomiting R11.2 Diarrhea R19.7 Acute dehydration E86.0 Hypotension I95.9 Seizure R56.9
[2024-05-04] MEDS ORDERED: NALOXONE HCL 0.4 MG/1 ML VIAL/CARP IV PRN (00:36)
[2024-05-04] MEDS: PANTOprazole 40 MG/10 ML SYR IV ONE (01:04)
[2024-05-04] MEDS: HYDROmorphone INJ 0.5 MG/0.5 ML SYR IV STA (01:04)
[2024-05-04] MEDS: LACTATED RINGER'S 1,000 ML IV SCH (01:05)
[2024-05-04] MEDS: LACTATED RINGER'S 1,000 ML IV ONE (01:20)
[2024-05-04] MEDS ORDERED: HYDROmorphone INJ 0.5 MG/0.5 ML SYR IV PRN (02:10)
[2024-05-04] MEDS: HYDROmorphone INJ 1 MG/ML SYRINGE IV PRN (03:23)
[2024-05-04] MEDS: PANTOprazole 40 MG/10 ML SYR IV SCH (09:28)
[2024-05-04] MEDS: ACETAMINOPHEN 1,000 MG/100 ML VIAL IV SCH (10:00)
--- OUTSIDE RECORDS SUMMARY | 2024-05-04 10:27 | External Medical Summary | Continuity of Care Document ---
Author Name Unknown Organization [place] [address] [address] [place] [address] [place] [id number] Care Team Providers Care Pouncer Name Role Phone Rah Triana Primary Care Physician [phone] Encounter [facility] [id number] Date(s): 04/23/24 - 04/23/24 [place] [address] [address] [facility] [address] [place] [address] [phone] Encounter Diagnosis Status post VNS (vagus nerve stimulator) placement(Discharge Diagnosis) - 04/23/24 Discharge Disposition: Home or Self Care Attending Physician: BEULAH Davis Julia Encounter Type: [facility] [place] Allergies, Adverse Reactions, Alerts Substance Criticality Severity Reaction Reaction Severity Status ampicillin anaphylaxis Active penicillins anaphylaxis Active Phenergan hives Active Inapsine panic attacks Active Bee stings anaphylaxis Active Allergy Not found in Search 1 hives Active 1inapisine Medications Albuterol (Eqv-Proventil HFA) 90 mcg/inh inhalation aerosol Start: 01/09/23 3:52:00 PM EST Start Date: 01/09/23 Status: Ordered Repeat number: 1 albuterol 1.25 mg/3 mL (0.042%) inhalation solution INHALE 1.25 MG (3 ML) VIA NEBULIZER FOUR TIMES DAILY NEEDED FOR SHORTNESS OF BREATH OR WHEEZING Start Date: 01/09/23 Status: Ordered Repeat number: 1 diclofenac sodium 75 mg oral delayed release tablet Start: 05/04/23 11:21:00 AM EDT, 1 tab, PO, bid, Disp# 28 tab, with food, Pharmacy: [facility]/pharmacy #[id number] Start Date: 05/04/23 Stop Date: 05/18/23 Status: Ordered Quantity: 28.0 Unit: tab Repeat number: 1 Indication: Pain in right foot EPINEPHrine 0.3 mg injectable kit INJECT 0.3 MG (0.3 ML) INTRAMUSCULARLY DIRECTED NEEDED FOR ALLERGIC REACTION Start Date: 01/09/23 Status: Ordered Repeat number: 1 Keppra 750 mg oral tablet Start: 01/09/23 4:44:00 PM EST, 2 tab, PO, bid, Disp# 120 tab, Refills: 5, Pharmacy: [facility]/pharmacy #[id number] Start Date: 01/09/23 Stop Date: 07/08/23 Status: Ordered Quantity: 120.0 Unit: tab Repeat number: 6 Indication: Unspecified convulsions lamoTRIgine 150 mg oral tablet TAKE 1 TABLET BY MOUTH TWICE A DAY Start Date: 01/09/23 Status: Ordered Repeat number: 1 levothyroxine Start: 01/09/23 3:53:00 PM EST, 300 mcg =, PO, Daily Start Date: 01/09/23 Status: Ordered Repeat number: 1 Singulair Start: 01/09/23 3:53:00 PM EST, 10 mg =, PO, Daily Start Date: 01/09/23 Status: Ordered Repeat number: 1 Sutab oral tablet Start: 03/29/22 3:21:00 PM EST, See Instructions, Disp# 24 tab, Refills: 0, FOLLOW INSTRUCTIONS PROVIDED BY [facility], Note to Pharmacy: PLEASE USE COUPON CODE ; BIN [id number]; PCN CN; GRP [id number]; ID [id number], Pharmacy: [facility]/pharmacy #[id number] Start Date: 03/29/22 Status: Ordered Quantity: 24.0 Unit: tab Repeat number: 1 Wixela Inhub 500 mcg-50 mcg inhalation powder INHALE 1 PUFF TWICE A DAY Start Date: 01/09/23 Status: Ordered Repeat number: 1 Problem List Condition Confirmation Course Effective Dates Status Health St atus Informant Medial meniscus tear Confirmed Active Diagnosis Diagnosis Type Effective Dates Health Status Cl inical Service Informant Status post VNS (vagus nerve stimulator) placement Discharge Diagnosis 04/23/24 Non-Specified Procedures Procedure Date Related Diagnosis Body Site Status Arthroscopy of knee with med ial meniscectomy 1 08/17/23 Completed APPENDECTOMY Completed DVT - Deep vein thrombosis 2 Completed Lumpectomy of breast 3 Co mpleted REMOVAL OF TONSILS Comple minerva Surgery 4 Completed 1Left Knee Arthroscopy, Partial Medial Meniscectomy, Chondroplasty 2right leg, right knee 3left 4left hand Social History Social History Type Response Smoking Status Never smoked cigaret abhinav Sex Sex Representation Female (finding) Implantable Device List Procedure Provider Procedure Date Device Type Site Unknown Unknown 12/06/23 Unknown Unknown Device Identifier Serial Number Lot or Batch Number Manufacturing Date Expiration Date Distinct Identification Code MRI Safety Implantable Status Assigning Authority Unknown Unknown n/a Unknown 07/18/25 Unknown Unknown Active Unkn own Unknown Unknown n/a Unknown 05/24/27 Unknown Unknown Active Unkn own Patient Care team information Care Team Personnel Name: Ever Foley Ann Position: Pharmacist Member Role: Pharmacy - Lifetime Name: DO Triana Philip A Position: Referring Member Role: Primary Care Provider Address: [address] [place] [address]: [phone] Name: Ever Garcia Jennifer Position: Pharmacist Member Role: Pharmacy - Lifetime Insurance Providers Guarantor name: YESSICA Health Plan Information #: 1 Payer: [employer] Member Number: [id number] Policy Number: NA Group Number: [id number] Health Plan Information #: 2 Payer: [employer] Member Number: [id number] Policy Number: NA Group Number: NA Health Plan Information #: 3 Payer: [facility] [employer] Member Number: NA Policy Number: NA Group Number: NA Health Plan Information #: 4 Payer: [employer] Member Number: [id number] Policy Number: NA Group Number: NA
[2024-05-04] MEDS: lamoTRIgine 25 MG TAB PO SCH (10:30)
[2024-05-04] MEDS: lamoTRIgine 100 MG TAB PO SCH (10:31)
[2024-05-04] MEDS: levETIRAcetam 500 MG/5 ML VIAL IV SCH (10:34)
--- NOTE | 2024-05-04 12:41 | Ultrasound Report ---
HISTORY: Concern for acute cholecystitis. TECHNIQUE: Right upper quadrant abdominal ultrasound evaluation. Grayscale, color Doppler, and spectral Doppler imaging was utilized. COMPARISON: None. FINDINGS: The visible portion of the pancreatic head and proximal body is unremarkable. Distal body and tail the pancreas is obscured by bowel gas shadowing. Increased echogenicity of the liver consistent with hepatic steatosis. Liver is enlarged measuring 23 cm in length. Cholelithiasis with multiple shadowing stones in the gallbladder lumen. No gallbladder wall thickening or pericholecystic fluid. No significant gallbladder distention. Sonographic Mendez sign is reported is negative. The proximal common bile duct is normal in caliber measuring 0.4 cm. Right kidney measures 11.9 cm in length. Normal cortical echogenicity. No hydronephrosis. IMPRESSION: * Cholelithiasis. No findings to suggest acute cholecystitis. * Hepatic steatosis and hepatomegaly. * Additional findings and limitations as detailed above. Electronically signed by Torito Mccain 05-04-2024 12:41 PM
--- NOTE | 2024-05-04 12:54 | Surgery Consultation ---
Date of Consultation May 04, 2024 Assessment & Plan (1) Seizure: (2) Diarrhea: (3) Nausea and vomiting: (4) Biliary colic: Plan 54-year-old woman presents with upper abdominal pain, severe, radiating to the back. In the emergency department she had a grand mal seizure. She has a severe seizure disorder refractory to medication. CT scan and ultrasound both demonstrate gallstones but no evidence of acute cholecystitis such as pericholecystic fluid, gallbladder wall thickening, surrounding inflammation. No Mendez sign on ultrasound. Her pain seems quite out of proportion to what would be typically expected of biliary colic. Seizure disorder in her seizure yesterday, I discussed the case with anesthesia, and lieu of possible surgery. From this discussion, we would recommend full neurologic workup by neurology. We will observe for now. We will continue to follow. This can or gastroenterology evaluation for other causes given the out of proportion pain and symptomatology. History of Present Illness Reason for Consultation: Possible biliary colic Requesting Physician: Tiffani Alexander MD Attending Physician: Tiffani Alexander MD History of Present Illness 54-year-old woman with past medical history including severe seizure disorder refractory to medical therapy with a stimulator presents to the hospital with 1 week history of intermittent severe upper abdominal pain radiating to her back. This has been accompanied with nausea and vomiting. She denies fevers or chills. She has had episodes of diarrhea as well. The pain started to improve but then became a 10 out of 10 and she presented to the emergency department. In the emergency department, she had a grand mal seizure. Currently, in bed, she is in severe pain. No fevers or chills at this time. CT scan is fairly normal except for a gallstone within the gallbladder. There is no evidence of pericholecystic fluid, gallbladder wall thickening, inflammation around the gallbladder. Allergies Allergy/AdvReac Type Severity Reaction Status Date / Time ampicillin Allergy Severe Anaphylaxis Verified 04/05/24 15:24 bee venom protein (honey bee) Allergy Severe Anaphylaxis Verified 04/05/24 15:24 droperidol [From Inapsine] Allergy Severe TONGUE Verified 04/05/24 15:24 SWELLED, HIVES Penicillins Allergy Severe Anaphylaxis Verified 04/05/24 15:24 promethazine [From Phenergan] Allergy Intermediate Hives Verified 04/05/24 15:24 Home Medications Medication Instructions Recorded Confirmed Type epinephrine 0.3 mg/0.3 mL 0.3 mg (0.3 mL) IM DIRECTED PRN 05/23/23 04/05/24 Rx injection, auto-injector (EpiPen) Allergic Reaction #2 ea lamotrigine 150 mg tablet 150 mg PO BID #180 tabs 09/07/23 04/05/24 Rx lamotrigine 25 mg tablet 25 mg PO BID seizure #180 tabs 09/07/23 04/05/24 Rx levetiracetam 500 mg tablet 1,000 mg (2 x 500 mg) PO BID #360 09/07/23 04/05/24 Rx (Keppra) tabs albuterol sulfate 90 mcg/actuation 2 inh inhalation Q4H PRN shortness 10/11/23 04/05/24 Rx aerosol inhaler of breath or wheezing #8.5 grams hydroxyzine HCl 25 mg tablet 25 mg PO QID #120 tabs 12/04/23 04/05/24 Rx levothyroxine 300 mcg tablet 300 mcg PO UD 12/18/23 04/05/24 History midazolam 5 mg/spray (0.1 mL) 1 spray intranasal .COMPLEX #2 ea 01/02/24 04/05/24 Rx nasal spray (Nayzilam) citalopram 40 mg tablet 40 mg PO HS #90 tabs 04/18/24 Rx Patient History Medical History History of COVID-19 End of 09/2023--fever, cough, head cold, no taste, was on paxlovid--all resolved Prediabetes PFO (patent foramen ovale) f/u dr. 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, no current issues History of anemia 2007, no current issues Jelani's paralysis 2021, resolved w/adjustment of keppra tPA adm status 24 hr BIOMETRICS HEAD Stroke-like symptoms 2021, "found to not be a stroke," no current issues Severe obstructive sleep apnea duplicate Headache resolved GILBERTO on CPAP VTE (venous thromboembolism) history of RLE DVT s/p anticoagulation Breast cancer dx 2002; In remission s/p lumpectomy and chemotherapy Hypothyroidism Surgical History History of arthroscopy of left knee 08/2023 History of carpal tunnel surgery of left wrist Hx of thumb surgery tendon and ligament sx Hx of appendectomy History of esophagogastroduodenoscopy (EGD) Hx of colonoscopy Hx of tonsillectomy History of lumpectomy left History of wisdom tooth extraction Family History Mother Breast cancer Grandmother (Maternal) Breast cancer Grandmother (Maternal) Myocardial infarction Grandfather (Maternal) Myocardial infarction Aunt Diabetes Ovarian cancer Uncle Diabetes Grandmother (Paternal) Diabetes Sister Ovarian cancer Breast cancer Other Cancer No family history of adverse response to anesthesia Denies family history of Prostate cancer Colorectal cancer Social History Smoking Status: Former smoker Tobacco Type: Cigarettes Age Started Using Tobacco: 16; Age Quit Using Tobacco: 41; packs per day: 0; Cigarettes Per Day: 1/2 PPD; Second Hand Exposure: Yes; Do You Dip or Chew Tobacco: No; Hx Alcohol Use: No Hx Substance Use: No Preferred Language: Citizen Of [place] Communication Ability: Effective Visual Impairment: No Limitations Hearing Ability: Normal Smasher Required: No Beliefs That Will Affect Care: None marital status: Single Current Living Situation: Other Current Living Situation Comment: lives w/ friend/partner current occupational status: disabled How many Children do You have: 0 How many Children do You have Comment: adopted-2 Feels Safe at Home: Yes Safety Concerns: Feels Safe At This Time Childhood Exposure to Second-Hand Smoke: No Diet: regular caffeine: Yes during the past year weight has: increased > 10 lbs Dental Care, Regularly: Yes Physical Activity Frequency: Does not Exercise Seatbelt Use: always Sunscreen Use: Yes Assistive Devices: Glasses Review of Systems Review of Systems: All systems reviewed & are unremarkable except as noted in HPI & below Physical Exam Constitutional: WD/WN, vitals as above Eyes: PERRL, conjunctivae normal, anicteric sclerae Neck: trachea midline, no thyromegaly Respiratory: normal respiratory effort; no respiratory distress and no labored breathing Cardiovascular: Rate/Rhythm: regular rate and regular rhythm Gastrointestinal (Abdomen): Inspection/Auscultation: abdomen normal to inspection; abdomen not distended Percussion/Palpation: + abdomen tender ( Right upper quadrant, epigastrium, left upper quadrant) and abdomen soft; no guarding and abdomen not rigid Skin: no rashes, warm and dry Psychiatric: A+Ox3, euthymic affect Results & Data Vital Signs (Past 12 Hours) Vital Signs Temp Pulse Pulse Resp BP BP BP 05/04/24 11:35 05/04/24 11:23 36.8 C 65 16 110/72 05/04/24 08:31 36.8 C 70 16 150/80 H 05/04/24 08:30 05/04/24 03:42 66 22 05/04/24 02:20 05/04/24 02:20 36.7 C 68 18 117/75 05/04/24 02:00 65 05/04/24 01:41 36.6 C 68 18 117/62 05/04/24 01:11 71 05/04/24 01:00 68 18 106/66 Pulse Ox O2 Del Method O2 Flow Rate 05/04/24 11:35 93 Nasal Cannula 2 05/04/24 11:23 87 L Room Air 05/04/24 08:31 92 Room Air 05/04/24 08:30 Room Air 05/04/24 03:42 96 05/04/24 02:20 Room Air 05/04/24 02:20 96 Room Air 05/04/24 02:00 05/04/24 01:41 95 Room Air 05/04/24 01:11 05/04/24 01:00 95 Room Air Laboratory Results 05/04/24 05/03/24 05/03/24 Range/Units 06:45 23:30 20:30 WBC 12.33 H (4.8-10.8) K/ul RBC 4.13 L (4.20-5.40) M/uL Hgb 12.5 (12.0-16.0) g/dl Hct 38.1 (37.0-47.0) % MCV 92.3 (80.0-100.0) fL MCH 30.3 (25.0-34.0) pg MCHC 32.8 (32.0-36.0) g/dL RDW Std Deviation 44.2 (36.4-46.3) fL RDW Coeff of Domo 13.0 (11.5-14.5) % Plt Count 298 (130-400) K/uL MPV 10.1 (9.4-12.4) fL Immature Gran % (Auto) 0.4 % Neut % (Auto) 68.4 % Lymph % (Auto) 22.0 % [place] % (Auto) 6.6 % Eos % (Auto) 2.3 % Baso % (Auto) 0.3 % Neut # (Auto) 8.44 H (1.40-6.50) K/uL Lymph # (Auto) 2.71 (1.20-3.40) K/uL K[place]t # (Auto) 0.81 H (0.11-0.59) K/uL Eos # (Auto) 0.28 (0.00-0.50) K/uL Baso # (Auto) 0.04 (0.00-0.20) K/uL Immature Gran # (Auto) 0.05 (0.01-0.20) K/uL Sodium 141 (136-145) mmol/L Potassium 4.0 (3.5-5.1) mmol/L Chloride 107 (98-107) mmol/L Carbon Dioxide 28 (21-32) mmol/L Anion Gap 6 (3-11) BUN 12 (6-23) mg/dl Creatinine 0.68 (0.6-1.2) mg/dl Est Cr Clr Drug Dosing Not Reportable eGFR 103.43 BUN/Creatinine Ratio 17.6 (10-20) Glucose 160 H (70-99(Fasting)) mg/dl Calcium 9.7 (8.6-10.3) mg/dl Magnesium 2.0 2.1 (1.7-2.4) mg/dl Total Bilirubin 0.3 (0.2-1.0) mg/dl AST 21 (13-39) U/L ALT 25 (7-52) U/L Alkaline Phosphatase 86 (34-104) U/L Total Protein 6.7 (6.0-8.3) gm/dl Albumin 4.2 (3.4-5.0) gm/dl Globulin 2.5 (2.5-4.0) gm/dl Albumin/Globulin Ratio 1.7 (0.9-2) Lipase 27 (11-82) U/L Urine Color Yellow Urine Appearance Clear (Clear) Urine pH 5.5 (4.5-7.5) Ur Specific [place] > 1.045 H (1.000-1.030) Urine Protein Negative (Negative) Urine Glucose (UA) Negative (Negative) Urine Ketones Negative (Negative) Urine Blood Negative (Negative) Urine Nitrite Negative (Negative) Urine Bilirubin Negative (Negative) Urine Urobilinogen Negative (Negative) Ur Leukocyte Esterase Negative (Negative) Diagnostic Findings HISTORY: Concern for acute cholecystitis. TECHNIQUE: Right upper quadrant abdominal ultrasound evaluation. Grayscale, color Doppler, and spectral Doppler imaging was utilized. COMPARISON: None. FINDINGS: The visible portion of the pancreatic head and proximal body is unremarkable. Distal body and tail the pancreas is obscured by bowel gas shadowing. Increased echogenicity of the liver consistent with hepatic steatosis. Liver is enlarged measuring 23 cm in length. Cholelithiasis with multiple shadowing stones in the gallbladder lumen. No gallbladder wall thickening or pericholecystic fluid. No significant gallbladder distention. Sonographic Mendez sign is reported is negative. The proximal common bile duct is normal in caliber measuring 0.4 cm. Right kidney measures 11.9 cm in length. Normal cortical echogenicity. No hydronephrosis. IMPRESSION: * Cholelithiasis. No findings to suggest acute cholecystitis. * Hepatic steatosis and hepatomegaly. * Additional findings and limitations as detailed above. Exam(s): CT ABDOMEN + PELVIS With Contrast IV Amt: 90ml optiray 320 EXAM: CT Abdomen and Pelvis With Intravenous Contrast CLINICAL HISTORY: Reason for exam: abdominal pain. TECHNIQUE: Axial computed tomography images of the abdomen and pelvis with intravenous contrast. CTDI is 28.07 mGy and DLP is 1573.71 mGy-cm. Automated exposure control was utilized for the study. A dose lowering technique was utilized adhering to the principles of ALARA. CONTRAST: Patient received 90ml optiray 320 of IV contrast COMPARISON: No relevant prior studies available. FINDINGS: Lung bases: Unremarkable. No mass. No consolidation. ABDOMEN: Liver: There is fatty infiltration of the liver and hepatomegaly with the liver measuring 21 cm craniocaudad. No focal liver mass lesion is seen. Gallbladder and bile ducts: There is a 13 mm calcified gallstone within a nondilated gallbladder. No surrounding inflammation, biliary duct dilation, or choledocholithiasis is seen. Pancreas: Unremarkable. No mass. No ductal dilation. Spleen: Unremarkable. No splenomegaly. Adrenals: 1 cm left adrenal nodule measures 54 HU which is nonspecific. Kidneys and ureters: Unremarkable. No solid mass. No hydronephrosis. Stomach and bowel: Unremarkable. No obstruction. No mucosal thickening. PELVIS: Appendix: The appendix is not visible. Bowel loops are nondilated. No pneumoperitoneum, free fluid, or acute inflammatory changes are seen involving the bowel. Bladder: The urinary bladder is mostly decompressed but otherwise unremarkable. Reproductive: Unremarkable as visualized. ABDOMEN and PELVIS: Intraperitoneal space: See above. Bones/joints: No acute fracture. No dislocation. Soft tissues: Unremarkable. Vasculature: The abdominal aorta is mildly calcified but nondilated. Lymph nodes: Unremarkable. No enlarged lymph nodes. IMPRESSION: 1. 1 cm left adrenal nodule measures 54 HU which is nonspecific. If there is no history of malignancy consider a follow-up low dose, non- contrast adrenal CT or chemical-shift adrenal MRI in 12 months. If there is a history of malignancy recommend a low dose, non-emergent, non- contrast adrenal CT or chemical-shift adrenal MRI follow-up study. 2. The appendix is not visible. Bowel loops are nondilated. No pneumoperitoneum, free fluid, or acute inflammatory changes are seen involving the bowel. 3. There is a 13 mm calcified gallstone within a nondilated gallbladder. No surrounding inflammation, biliary duct dilation, or choledocholithiasis is seen. Electronically signed by: Addy Samson MD 05/03/24 22:49 PM
[2024-05-05] MEDS: ONDANSETRON INJ 2 MG/ML 2 ML VIAL IV PRN (05:42)
[2024-05-05 07:08] LABS: Basophils # (auto) 0.04 K/uL (0.00-0.20); Basophils % (auto) 0.4 %; Eosinophils # (auto) 0.19 K/uL (0.00-0.50); Eosinophils % (auto) 1.9 %; Hematocrit (blood only) 33.2 % (37.0-47.0); Hemoglobin 10.6 g/dl (12.0-16.0); Immature Granulocytes # (auto) 0.04 K/uL (0.01-0.20); Immature Granulocytes % (auto) 0.4 %; Lymphocytes # (auto) 1.74 K/uL (1.20-3.40); Lymphocytes % (auto) 17.1 %; Mean Corpuscular Hemoglobin 29.9 pg (25.0-34.0); Mean Corpuscular Hgb Conc 31.9 g/dL (32.0-36.0); Mean Corpuscular Volume 93.5 fL (80.0-100.0); Mean Platelet Volume 10.3 fL (9.4-12.4); Monocytes # (auto) 0.67 K/uL (0.11-0.59); Monocytes % (auto) 6.6 %; Neutrophils # (auto) 7.49 K/uL (1.40-6.50); Neutrophils % (auto) 73.6 %; Platelet Count 242 K/uL (130-400); RDW Coefficient of Variation 12.7 % (11.5-14.5); RDW Standard Deviation 43.8 fL (36.4-46.3); Red Blood Count 3.55 M/uL (4.20-5.40); White Blood Count 10.17 K/ul (4.8-10.8)
[2024-05-05 07:28] LABS: Albumin Globulin Ratio 1.8 (0.9-2); Albumin Level 3.8 gm/dl (3.4-5.0); BUN Creatinine Ratio 19.3 (10-20); Bilirubin,Total 0.5 mg/dl (0.2-1.0); Calcium 9.3 mg/dl (8.6-10.3); Creatinine Clr Calc Pharmacy 157.3 ml/min; Globulin 2.1 gm/dl (2.5-4.0); Potassium 3.9 mmol/L (3.5-5.1); Total Protein 5.9 gm/dl (6.0-8.3)
[2024-05-05] MEDS: KETOROLAC TROMETHAMINE 15 MG/ML VIAL IV PRN (08:18)
[2024-05-05] MEDS: SODIUM CHLORIDE 0.9% 1,000 ML IV SCH (08:57)
--- NOTE | 2024-05-05 09:51 | Hospitalist Progress Note ---
Date of Service May 05, 2024 Assessment & Plan (1) Biliary colic: (2) Nausea and vomiting: (3) Diarrhea: (4) Acute dehydration: (5) Hypotension: (6) Seizure: Plan Patient is a 54-year-old female with a past medical history of PFO, anemia, seizure disorder, GILBERTO, hypothyroidism, breast cancer. She resented via EMS due to right sided abdominal pain x 1 week with nausea, vomiting, and diarrhea. Upon arrival to ED patient had a witnessed grand mal seizure that lasted 45 to 60 seconds. ER provider stated he spoke with on-call neurologist, Dr. Gifford, who recommended patient have additional 1 g of Keppra on to her evening scheduled [address] revealed 13 mm calcified gallstone within nondilated gallbladder, with an adequate pain control in ED, patient is being admitted for biliary colic. #Symptomatic cholelithiasis LFTs WNL AP CT revealed 13 mm calcified gallstone within nondilated gallbladder, no surrounding inflammation, biliary ductal dilation, or choledocholithiasis seen US ABD no evidence of cholecystitis Pantoprazole IV BID General Surgery team consulted - recommend GI eval due to the severity of pain Supportive and symptomatic care with clear liq diet, pain control, antiemetics and IVF Diarrhea Self limited / resolved if recurrent will check C diff #seizure disorder Grand mal seizure in ED secondary to pain, received Ativan 1 Mg IV S/p VNS 12/06/[address] negative On-call neurologist recommended additional 1 g of IV Keppra, continue Lamictal Neurology consult requested by anesthesia and surgery before cholecystectomy seizure precautions #leukocytosis WBC 12.33 on presentation resolved trend CBC # Anemia Likely dilutional after IVF Check iron stds and FOBT Monitor CBC #incidental finding AP CT revealed 1 cm left adrenal nodule that measures 54 HU, nonspecific - if no history of malignancy, consider follow-up low-dose noncontrast adrenal CT or chemical shift adrenal MRI in 12 months - If history of malignancy, recommend low-dose nonemergent noncontrast adrenal CT or chemical shift adrenal MRI follow-up study follow up with PCP Chronic stable diagnoses: OSACPAP at bedtime Depressionholding citalopram Anxietyholding hydroxyzine Hypothyroidismholding levothyroxine VTE ppx: SCDs, defer chemical ppx with possible surgical managment above Diet: Clear liq Dispo: Med/tele with IV opioids Admission and Anticipated Discharge Date Admission Date: May 04, 2024 Subjective still with significant RUQ pain, nausea and vomiting, no diarrhea, no fever or chills, no further seizure episodes Physical Exam Physical Exam: The patient is awake, alert and oriented 3, Tearful, unable to get comfortable due to pain. HEENT- EOMI, mucous membranes Dry. Hearing grossly intact. Heart-normal S1 and S2. No murmurs, rubs or gallops. Lungs-clear bilaterally, no respiratory distress, no accessory muscle use. Abdomen-normal bowel sounds and soft. No ascites noted. tender to palpation right lower quadrant. no rebound or guarding Extremities- no clubbing, cyanosis, or edema. Results & Data Results & Data Vital Signs (Past 12 Hours) Vital Signs Temp Pulse Pulse Resp BP Pulse Ox O2 Del Method 05/05/24 07:20 72 05/05/24 06:42 36.8 C 75 16 106/66 95 Nasal Cannula 05/05/24 01:30 36.9 C 67 16 120/69 97 Nasal Cannula 05/04/24 22:45 Nasal Cannula 05/04/24 21:53 72 05/04/24 21:48 37.1 C 72 16 114/71 95 Room Air O2 Flow Rate 05/05/24 07:20 05/05/24 06:42 3 05/05/24 01:30 2 05/04/24 22:45 4 05/04/24 21:53 05/04/24 21:48 PG Care Time/CCT Total # of Minutes Spent Total Time Spent with Patient: Total time spent is greater than 50% in coordination of care (as documented) at patient's floor/unit and/or counseling patient: Coding Level of Care Code 55088 SUB INP/OBS CARE 2/35MIN Diagnoses Biliary colic K80.50 Nausea and vomiting R11.2 Diarrhea R19.7 Acute dehydration E86.0 Hypotension I95.9 Seizure R56.9
--- NOTE | 2024-05-05 09:56 | Gastrointestinal Consultation ---
Date of Consultation May 05, 2024 Assessment & Plan (1) Right upper quadrant abdominal pain: I believe her pain is most typical for biliary colic except for the length of time it has stayed with her. She doesn't really have any risk factors for ulcer disease. I think it is worthwhile to do EGD to rule out ulcer disease to give more credence to the need for cholecystectomy. Will plan to do EGD tomorrow if Neurology and anesthesia okay with her being sedated. History of Present Illness Reason for Consultation: abdominal pain Attending Physician: Tiffani Alexander MD History of Present Illness 54 year old female with onset of upper abdominal/RUQ pain last week. She describes a "severe" pain that radiated into her back between her shoulder blades. It was associated with nausea and vomiting and a low grade temp. It lasted over the better part of a day and eased off for the next week. It recurred on Monday and has stayed with her since. She did have diarrhea with the second episode of pain. CT showed solitary gall stone where as ultrasound showed multiple gallstones. She denies NSAID usage other than for this pain. She has never had pain like this before. She had a colonoscopy by Dr. Reynolds in October but she has never had an EGD. Surgery has seen her and is considering whether this is biliary colic. She did have a grand mal seizure in the ED Allergies Allergy/AdvReac Type Severity Reaction Status Date / Time ampicillin Allergy Severe Anaphylaxis Verified 04/05/24 15:24 bee venom protein (honey bee) Allergy Severe Anaphylaxis Verified 04/05/24 15:24 droperidol [From Inapsine] Allergy Severe TONGUE Verified 04/05/24 15:24 SWELLED, HIVES Penicillins Allergy Severe Anaphylaxis Verified 04/05/24 15:24 promethazine [From Phenergan] Allergy Intermediate Hives Verified 04/05/24 15:24 Home Medications Medication Instructions Recorded Confirmed Type epinephrine 0.3 mg/0.3 mL 0.3 mg (0.3 mL) IM DIRECTED PRN 05/23/23 04/05/24 Rx injection, auto-injector (EpiPen) Allergic Reaction #2 ea lamotrigine 150 mg tablet 150 mg PO BID #180 tabs 09/07/23 04/05/24 Rx lamotrigine 25 mg tablet 25 mg PO BID seizure #180 tabs 09/07/23 04/05/24 Rx levetiracetam 500 mg tablet 1,000 mg (2 x 500 mg) PO BID #360 09/07/23 04/05/24 Rx (Keppra) tabs albuterol sulfate 90 mcg/actuation 2 inh inhalation Q4H PRN shortness 10/11/23 04/05/24 Rx aerosol inhaler of breath or wheezing #8.5 grams hydroxyzine HCl 25 mg tablet 25 mg PO QID #120 tabs 12/04/23 04/05/24 Rx levothyroxine 300 mcg tablet 300 mcg PO UD 12/18/23 04/05/24 History midazolam 5 mg/spray (0.1 mL) 1 spray intranasal .COMPLEX #2 ea 01/02/24 04/05/24 Rx nasal spray (Nayzilam) citalopram 40 mg tablet 40 mg PO HS #90 tabs 04/18/24 Rx Patient History Medical History History of COVID-19 End of 09/2023--fever, cough, head cold, no taste, was on paxlovid--all resolved Prediabetes PFO (patent foramen ovale) f/u dr. 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 Stroke-like symptoms 2021, "found to not be a stroke," no current issues Severe obstructive sleep apnea duplicate Headache resolved GILBERTO on CPAP VTE (venous thromboembolism) history of RLE DVT s/p anticoagulation Breast cancer dx 2002; In remission s/p lumpectomy and chemotherapy Hypothyroidism Surgical History History of arthroscopy of left knee 08/2023 History of carpal tunnel surgery of left wrist Hx of thumb surgery tendon and ligament sx Hx of appendectomy History of esophagogastroduodenoscopy (EGD) Hx of colonoscopy Hx of tonsillectomy History of lumpectomy left History of wisdom tooth extraction Family History Mother Breast cancer Grandmother (Maternal) Breast cancer Grandmother (Maternal) Myocardial infarction Grandfather (Maternal) Myocardial infarction Aunt Diabetes Ovarian cancer Uncle Diabetes Grandmother (Paternal) Diabetes Sister Ovarian cancer Breast cancer Other Cancer No family history of adverse response to anesthesia Denies family history of Prostate cancer Colorectal cancer Social History Smoking Status: Former smoker Tobacco Type: Cigarettes Age Started Using Tobacco: 16; Age Quit Using Tobacco: 41; packs per day: 0; Cigarettes Per Day: 1/2 PPD; Second Hand Exposure: Yes; Do You Dip or Chew Tobacco: No; Hx Alcohol Use: No Hx Substance Use: No Preferred Language: Welsh Communication Ability: Effective Visual Impairment: No Limitations Hearing Ability: Normal [employer]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 Beliefs That Will Affect Care: None marital status: Single Current Living Situation: Other Current Living Situation Comment: lives w/ friend/partner current occupational status: disabled How many Children do You have: 0 How many Children do You have Comment: adopted-2 Feels Safe at Home: Yes Safety Concerns: Feels Safe At This Time Childhood Exposure to Second-Hand Smoke: No Diet: regular caffeine: Yes during the past year weight has: increased > 10 lbs Dental Care, Regularly: Yes Physical Activity Frequency: Does not Exercise Seatbelt Use: always Sunscreen Use: Yes Assistive Devices: Glasses Review of Systems Review of Systems: All systems reviewed & are unremarkable except as noted in HPI & below Physical Exam Physical Exam: She looks comfortable Constitutional: WD/WN, vitals as above Neck: trachea midline, no thyromegaly Respiratory: normal respiratory effort, lungs clear to auscultation Cardiovascular: RRR, no murmur, no edema Gastrointestinal (Abdomen): normal bowel sounds, soft, nontender, no hepatosplenomegaly Results & Data Vital Signs (Past 12 Hours) Vital Signs Temp Pulse Pulse Resp BP Pulse Ox O2 Del Method 05/05/24 07:20 72 05/05/24 06:42 36.8 C 75 16 106/66 95 Nasal Cannula 05/05/24 01:30 36.9 C 67 16 120/69 97 Nasal Cannula 05/04/24 22:45 Nasal Cannula O2 Flow Rate 05/05/24 07:20 05/05/24 06:42 3 05/05/24 01:30 2 05/04/24 22:45 4 Laboratory Results 05/05/24 Range/Units 06:22 WBC 10.17 (4.8-10.8) K/ul RBC 3.55 L (4.20-5.40) M/uL Hgb 10.6 L (12.0-16.0) g/dl Hct 33.2 L (37.0-47.0) % MCV 93.5 (80.0-100.0) fL MCH 29.9 (25.0-34.0) pg MCHC 31.9 L (32.0-36.0) g/dL RDW Std Deviation 43.8 (36.4-46.3) fL RDW Coeff of Domo 12.7 (11.5-14.5) % Plt Count 242 (130-400) K/uL MPV 10.3 (9.4-12.4) fL Immature Gran % (Auto) 0.4 % Neut % (Auto) 73.6 % Lymph % (Auto) 17.1 % Andrews % (Auto) 6.6 % Eos % (Auto) 1.9 % Baso % (Auto) 0.4 % Neut # (Auto) 7.49 H (1.40-6.50) K/uL Lymph # (Auto) 1.74 (1.20-3.40) K/uL Andrews # (Auto) 0.67 H (0.11-0.59) K/uL Eos # (Auto) 0.19 (0.00-0.50) K/uL Baso # (Auto) 0.04 (0.00-0.20) K/uL Immature Gran # (Auto) 0.04 (0.01-0.20) K/uL Sodium 139 (136-145) mmol/L Potassium 3.9 (3.5-5.1) mmol/L Chloride 104 (98-107) mmol/L Carbon Dioxide 32 (21-32) mmol/L Anion Gap 3 (3-11) BUN 11 (6-23) mg/dl Creatinine 0.57 L (0.6-1.2) mg/dl Est Cr Clr Drug Dosing 157.3 ml/min eGFR 107.92 BUN/Creatinine Ratio 19.3 (10-20) Glucose 105 H (70-99(Fasting)) mg/dl Calcium 9.3 (8.6-10.3) mg/dl Total Bilirubin 0.5 (0.2-1.0) mg/dl AST 19 (13-39) U/L ALT 21 (7-52) U/L Alkaline Phosphatase 66 (34-104) U/L Total Protein 5.9 L (6.0-8.3) gm/dl Albumin 3.8 (3.4-5.0) gm/dl Globulin 2.1 L (2.5-4.0) gm/dl Albumin/Globulin Ratio 1.8 (0.9-2) Diagnostic Findings Abdomen/Pelvis CT 05/03/24 20:53 Exam(s): CT ABDOMEN + PELVIS With Contrast IV Amt: 90ml optiray 320 EXAM: CT Abdomen and Pelvis With Intravenous Contrast CLINICAL HISTORY: Reason for exam: abdominal pain. TECHNIQUE: Axial computed tomography images of the abdomen and pelvis with intravenous contrast. CTDI is 28.07 mGy and DLP is 1573.71 mGy-cm. Automated exposure control was utilized for the study. A dose lowering technique was utilized adhering to the principles of ALARA. CONTRAST: Patient received 90ml optiray 320 of IV contrast COMPARISON: No relevant prior studies available. FINDINGS: Lung bases: Unremarkable. No mass. No consolidation. ABDOMEN: Liver: There is fatty infiltration of the liver and hepatomegaly with the liver measuring 21 cm craniocaudad. No focal liver mass lesion is seen. Gallbladder and bile ducts: There is a 13 mm calcified gallstone within a nondilated gallbladder. No surrounding inflammation, biliary duct dilation, or choledocholithiasis is seen. Pancreas: Unremarkable. No mass. No ductal dilation. Spleen: Unremarkable. No splenomegaly. Adrenals: 1 cm left adrenal nodule measures 54 HU which is nonspecific. Kidneys and ureters: Unremarkable. No solid mass. No hydronephrosis. Stomach and bowel: Unremarkable. No obstruction. No mucosal thickening. PELVIS: Appendix: The appendix is not visible. Bowel loops are nondilated. No pneumoperitoneum, free fluid, or acute inflammatory changes are seen involving the bowel. Bladder: The urinary bladder is mostly decompressed but otherwise unremarkable. Reproductive: Unremarkable as visualized. ABDOMEN and PELVIS: Intraperitoneal space: See above. Bones/joints: No acute fracture. No dislocation. Soft tissues: Unremarkable. Vasculature: The abdominal aorta is mildly calcified but nondilated. Lymph nodes: Unremarkable. No enlarged lymph nodes. IMPRESSION: 1. 1 cm left adrenal nodule measures 54 HU which is nonspecific. If there is no history of malignancy consider a follow-up low dose, non- contrast adrenal CT or chemical-shift adrenal MRI in 12 months. If there is a history of malignancy recommend a low dose, non-emergent, non- contrast adrenal CT or chemical-shift adrenal MRI follow-up study. 2. The appendix is not visible. Bowel loops are nondilated. No pneumoperitoneum, free fluid, or acute inflammatory changes are seen involving the bowel. 3. There is a 13 mm calcified gallstone within a nondilated gallbladder. No surrounding inflammation, biliary duct dilation, or choledocholithiasis is seen. Electronically signed by: Addy Samson MD 05/03/24 22:[address] 05/03/24 21:07 Exam(s): CT HEAD Without Contrast EXAM: CT Head Without Intravenous Contrast CLINICAL HISTORY: Reason for exam: seizure. TECHNIQUE: Axial computed tomography images of the head/brain without intravenous contrast. CTDI is 36.67 mGy and DLP is 625.8 mGy-cm. Automated exposure control was utilized for the study. A dose lowering technique was utilized adhering to the principles of ALARA. COMPARISON: April 07, 2024 FINDINGS: Brain: Unremarkable. No hemorrhage. No significant white matter disease. No edema. Ventricles: Unremarkable. No ventriculomegaly. Bones/joints: Unremarkable. No acute fracture. Soft tissues: Unremarkable. Sinuses: Trace amount mucosal thickening in the right maxillary sinus, similar to previous. No gas/fluid larger seen. The remaining sinuses are unremarkable. Mastoid air cells: Unremarkable as visualized. No mastoid effusion. IMPRESSION: No acute findings in the head/brain. Electronically signed by: Addy Samson MD 05/03/24 22:45 PM Abdomen Ultrasound 05/04/24 09:39 HISTORY: Concern for acute cholecystitis. TECHNIQUE: Right upper quadrant abdominal ultrasound evaluation. Grayscale, color Doppler, and spectral Doppler imaging was utilized. COMPARISON: None. FINDINGS: The visible portion of the pancreatic head and proximal body is unremarkable. Distal body and tail the pancreas is obscured by bowel gas shadowing. Increased echogenicity of the liver consistent with hepatic steatosis. Liver is enlarged measuring 23 cm in length. Cholelithiasis with multiple shadowing stones in the gallbladder lumen. No gallbladder wall thickening or pericholecystic fluid. No significant gallbladder distention. Sonographic Mendez sign is reported is negative. The proximal common bile duct is normal in caliber measuring 0.4 cm. Right kidney measures 11.9 cm in length. Normal cortical echogenicity. No hydronephrosis. IMPRESSION: * Cholelithiasis. No findings to suggest acute cholecystitis. * Hepatic steatosis and hepatomegaly. * Additional findings and limitations as detailed above. Electronically signed by Torito Mccain 05-04-2024 12:41 PM
--- NOTE | 2024-05-05 10:11 | Neurology Consultation ---
Date of Consultation May 05, 2024 Assessment & Plan (1) Seizure: History of Present Illness Attending Physician: Tiffani Alexander MD History of Present Illness S: pt with still abdomnial pain from the gallstone. pt followed by our clinic and well known to Roula Arizmendi. pt seizure well controlled with VNS and has not had seizure for long time and we were planning on reducing her seizure med. she had seizure event in ED on this admission. pt now doing well and no issues. chart reviewed. admission HPi: Patient presents due to concern for abdominal pain. Patient reports that the abdominal pain is in the right abdomen sometimes will go to the right shoulder blade. The patient states that it has been intermittent over the last week but seem to be worsening just in the last 24 hours. The patient states this morning she had some worsening pain and did eat some greasy eggs and breakfast. Patient states that she did have worsening pain thereafter. The patient over the last week has taken [id number] medications including Tylenol ibuprofen as well as stomach medication. Patient denies any chest pains or shortness of breath. Patient does still have her gallbladder. Allergies Allergy/AdvReac Type Severity Reaction Status Date / Time ampicillin Allergy Severe Anaphylaxis Verified 04/05/24 15:24 bee venom protein (honey bee) Allergy Severe Anaphylaxis Verified 04/05/24 15:24 droperidol [From Inapsine] Allergy Severe TONGUE Verified 04/05/24 15:24 SWELLED, HIVES Penicillins Allergy Severe Anaphylaxis Verified 04/05/24 15:24 promethazine [From Phenergan] Allergy Intermediate Hives Verified 04/05/24 15:24 Home Medications Medication Instructions Recorded Confirmed Type epinephrine 0.3 mg/0.3 mL 0.3 mg (0.3 mL) IM DIRECTED PRN 05/23/23 04/05/24 Rx injection, auto-injector (EpiPen) Allergic Reaction #2 ea lamotrigine 150 mg tablet 150 mg PO BID #180 tabs 09/07/23 04/05/24 Rx lamotrigine 25 mg tablet 25 mg PO BID seizure #180 tabs 09/07/23 04/05/24 Rx levetiracetam 500 mg tablet 1,000 mg (2 x 500 mg) PO BID #360 09/07/23 04/05/24 Rx (Keppra) tabs albuterol sulfate 90 mcg/actuation 2 inh inhalation Q4H PRN shortness 10/11/23 04/05/24 Rx aerosol inhaler of breath or wheezing #8.5 grams hydroxyzine HCl 25 mg tablet 25 mg PO QID #120 tabs 12/04/23 04/05/24 Rx levothyroxine 300 mcg tablet 300 mcg PO UD 12/18/23 04/05/24 History midazolam 5 mg/spray (0.1 mL) 1 spray intranasal .COMPLEX #2 ea 01/02/24 04/05/24 Rx nasal spray (Nayzilam) citalopram 40 mg tablet 40 mg PO HS #90 tabs 04/18/24 Rx Patient History Medical History History of COVID-19 End of 09/2023--fever, cough, head cold, no taste, was on paxlovid--all resolved Prediabetes PFO (patent foramen ovale) f/u dr. 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 Stroke-like symptoms 2021, "found to not be a stroke," no current issues Severe obstructive sleep apnea duplicate Headache resolved GILBERTO on CPAP VTE (venous thromboembolism) history of RLE DVT s/p anticoagulation Breast cancer dx 2002; In remission s/p lumpectomy and chemotherapy Hypothyroidism Surgical History History of arthroscopy of left knee 08/2023 History of carpal tunnel surgery of left wrist Hx of thumb surgery tendon and ligament sx Hx of appendectomy History of esophagogastroduodenoscopy (EGD) Hx of colonoscopy Hx of tonsillectomy History of lumpectomy left History of wisdom tooth extraction Family History Mother Breast cancer Grandmother (Maternal) Breast cancer Grandmother (Maternal) Myocardial infarction Grandfather (Maternal) Myocardial infarction Aunt Diabetes Ovarian cancer Uncle Diabetes Grandmother (Paternal) Diabetes Sister Ovarian cancer Breast cancer Other Cancer No family history of adverse response to anesthesia Denies family history of Prostate cancer Colorectal cancer Social History Smoking Status: Former smoker Tobacco Type: Cigarettes Age Started Using Tobacco: 16; Age Quit Using Tobacco: 41; packs per day: 0; Cigarettes Per Day: 1/2 PPD; Second Hand Exposure: Yes; Do You Dip or Chew Tobacco: No; Hx Alcohol Use: No Hx Substance Use: No Preferred Language: Djiboutian Communication Ability: Effective Visual Impairment: No Limitations Hearing Ability: Normal Cutter V Groove Required: No Beliefs That Will Affect Care: None marital status: Single Current Living Situation: Other Current Living Situation Comment: lives w/ friend/partner current occupational status: disabled How many Children do You have: 0 How many Children do You have Comment: adopted-2 Feels Safe at Home: Yes Safety Concerns: Feels Safe At This Time Childhood Exposure to Second-Hand Smoke: No Diet: regular caffeine: Yes during the past year weight has: increased > 10 lbs Dental Care, Regularly: Yes Physical Activity Frequency: Does not Exercise Seatbelt Use: always Sunscreen Use: Yes Assistive Devices: Glasses Exam (Neuro) Physical Exam: HEENT: normocephalic grossly Neuro: Mental: AOx4, fluent speech, normal comprehension, no apraxia, no L/R confusion, no neglect CN: PERRL, Full EOM, symmetric face, midline T/U/P, grossly full ROM neck Motor: No abnormal movements, normal tone, 5/5 t/o bilaterally Sens: intact to touch b/l grossly Coord: intact DTR: 2+ sym b/l Impression: 54 yo female with well controlled seizure with VNS implant with currently having ongoing severe abdominal pain from gallstone. pt likely had breakthrough seizure from severe pain and stress. Recommendations: no issue from neurology to have general anesthesia and treatment/surgical intervention for gallstone removable. no need to change her seizure meds. not much to add from neurology at this point. pt can f/u with neurology as planned after discharge. call again if new question Chart reviewed I have spent more than 50% educating patient about potential diagnosis and neurological evaluation and coordinating care with patient's treatment team. Total time spent (including chart review and coordination of care): 60 min (this includes chart review). Results & Data Vital Signs (Past 12 Hours) Vital Signs Temp Pulse Pulse Resp BP Pulse Ox O2 Del Method 05/05/24 07:20 72 05/05/24 06:42 36.8 C 75 16 106/66 95 Nasal Cannula 05/05/24 01:30 36.9 C 67 16 120/69 97 Nasal Cannula 05/04/24 22:45 Nasal Cannula O2 Flow Rate 05/05/24 07:20 05/05/24 06:42 3 05/05/24 01:30 2 05/04/24 22:45 4 PG Care Time/CCT Total # of Minutes Spent Total Time Spent with Patient: Total time spent is greater than 50% in coordination of care (as documented) at patient's floor/unit and/or counseling patient: Coding Level of Care Code 69594 IN/OBS CONSULT LVL 4,60M Diagnoses Seizure R56.9
--- NOTE | 2024-05-05 10:49 | Surgery Progress Note ---
Date of Service May 05, 2024 Assessment & Plan (1) Seizure: (2) Diarrhea: (3) Nausea and vomiting: (4) Biliary colic: Plan 54-year-old woman presents with upper abdominal pain, severe, radiating to the back. In the emergency department she had a grand mal seizure. She has a severe seizure disorder refractory to medication. CT scan and ultrasound both demonstrate gallstones but no evidence of acute cholecystitis such as pericholecystic fluid, gallbladder wall thickening, surrounding inflammation. No Mendez sign on ultrasound. Her pain seems quite out of proportion to what would be typically expected of biliary colic. Seizure disorder in her seizure yesterday, I discussed the case with anesthesia, and lieu of possible surgery. Appreciate neurology recommendations. GI has seen the patient and is scheduled for EGD tomorrow. We have set her up for HIDA scan as well. If the EGD is normal, would recommend laparoscopic cholecystectomy. We will await the results of the EGD. Admission and Anticipated Discharge Date Admission Date: May 04, 2024 Subjective continues to have severe upper abdominal pain radiating to the back. No nausea or vomiting. No fevers or chills. Ultrasound demonstrated gallstones but no evidence of acute cholecystitis. She continues to have pain out of proportion to exam and imaging findings. Physical Exam Constitutional: WD/WN, vitals as above Gastrointestinal (Abdomen): Inspection/Auscultation: abdomen normal to inspection; abdomen not distended Percussion/Palpation: + abdomen tender ( Right upper quadrant, epigastrium, left upper quadrant) and abdomen soft; no guarding and abdomen not rigid Skin: no rashes, warm and dry Psychiatric: A+Ox3, euthymic affect Results & Data Vital Signs (Past 12 Hours) Vital Signs Temp Pulse Pulse Resp BP Pulse Ox O2 Del Method 05/05/24 07:20 72 05/05/24 06:42 36.8 C 75 16 106/66 95 Nasal Cannula 05/05/24 01:30 36.9 C 67 16 120/69 97 Nasal Cannula O2 Flow Rate 05/05/24 07:20 05/05/24 06:42 3 05/05/24 01:30 2
[2024-05-05] MEDS: MICONAZOLE NITRATE POWDER 85 GM EXT PRN (17:22)
[2024-05-05] MEDS ORDERED: HYDROmorphone INJ 1 MG/ML SYRINGE IV PRN (19:02)
[2024-05-05] MEDS: LORazepam 2 MG/1 ML VIAL IV STA (19:02)
[2024-05-05] MEDS: LORazepam 2 MG/1 ML VIAL ONE (19:21)
[2024-05-05] MEDS: METOCLOPRAMIDE HCL INJ 5 MG/ML 2 ML VIAL IV STA (21:56)
[2024-05-05] MEDS: HYDROmorphone INJ 0.5 MG/0.5 ML SYR IV PRN (22:04)
[2024-05-06 07:04] LABS: Albumin Level 3.7 gm/dl (3.4-5.0); Bilirubin,Total 0.4 mg/dl (0.2-1.0); Calcium 9.2 mg/dl (8.6-10.3); Potassium 4.1 mmol/L (3.5-5.1)
[2024-05-06 07:10] LABS: Albumin Globulin Ratio 1.6 (0.9-2); BUN Creatinine Ratio 19.2 (10-20); Creatinine Clr Calc Pharmacy 172.4 ml/min; Globulin 2.3 gm/dl (2.5-4.0)
--- NOTE | 2024-05-06 08:52 | Hospitalist Progress Note ---
Date of Service May 06, 2024 Assessment & Plan (1) Biliary colic: Plan: LFTs WNL AP CT revealed 13 mm calcified gallstone within nondilated gallbladder, no surrounding inflammation, biliary ductal dilation, or choledocholithiasis seen US ABD no evidence of cholecystitis Pantoprazole IV BID General Surgery team consulted EGD was normal HIDA scan schedule for tomorrow am, avoid opioids 6hrs before study, (study at 10:30) Supportive and symptomatic care with clear liq diet, pain control, antiemetics and IVF NPO at midnight (2) Seizure: Plan: Grand mal seizure in ED secondary to pain, received Ativan 1 Mg IV S/p VNS 12/06/[address] negative On-call neurologist recommended additional 1 g of IV Keppra, continue Lamictal Neurology consult requested by anesthesia and surgery before cholecystectomy seizure precautions (3) Diarrhea: Plan: Self limited / resolved if recurrent will check C diff (4) Nausea & vomiting: (5) Acute dehydration: (6) Hypotension: (7) Skin infection: Plan: - Pt got skin under R clavicle pierced 4 weeks ago - Non-tender erythema around 3 piercings under the right clavicle. No purulence or drainage. - Apply mupirocin 2% BID Plan #leukocytosis WBC 12.33 on presentation resolved trend CBC # Anemia Likely dilutional after IVF Check iron stds and FOBT Monitor CBC #incidental finding AP CT revealed 1 cm left adrenal nodule that measures 54 HU, nonspecific - if no history of malignancy, consider follow-up low-dose noncontrast adrenal CT or chemical shift adrenal MRI in 12 months - If history of malignancy, recommend low-dose nonemergent noncontrast adrenal CT or chemical shift adrenal MRI follow-up study follow up with PCP Chronic stable diagnoses: OSACPAP at bedtime Depressionholding citalopram Anxietyholding hydroxyzine Hypothyroidismholding levothyroxine VTE ppx: SCDs, defer chemical ppx with possible surgical managment above Diet: Clear liq, NPO at midnight Dispo: Med/tele with IV opioids Patient is a 54-year-old female with a past medical history of PFO, anemia, seizure disorder, GILBERTO, hypothyroidism, breast cancer. She resented via EMS due to right sided abdominal pain x 1 week with nausea, vomiting, and diarrhea. Upon arrival to ED patient had a witnessed grand mal seizure that lasted 45 to 60 seconds. ER provider stated he spoke with on-call neurologist, Dr. Gifford, who recommended patient have additional 1 g of Keppra on to her evening scheduled [address] revealed 13 mm calcified gallstone within nondilated gallbladder, with an adequate pain control in ED, patient is being admitted for biliary colic. Admission and Anticipated Discharge Date Admission Date: May 04, 2024 Supervising Physician Co-Signing Physician Notes I personally examined the patient and verified simpson points of history and exam, discussed case, and agree with decision making and plan documented by Dr. Dino Sandoval and Torito Peter [facility]. Patient on admission for severe right upper quadrant pain with associated nausea and vomiting. Had EGD today that showed acute gastritis, biopsies obtained. Advancing diet to clears. HIDA scan recommended. Subjective Pt is anxious today regarding her procedure today. She is still having RUQ abdominal pain that she rates 7/10 in severity. Last night, she vomited several times. The first emesis was yellow in color, the second emesis was red, however that was because she recently ate red Jello. Subsequent episodes of vomiting were progressively clear in color. We also discussed recent piercing she received inferior to her R clavicle. They appear slightly red, however they do not hurt. She received the piercing 4 weeks ago and have not caused any issues. Review of Systems Review of Systems: All systems reviewed & are unremarkable except as noted in Subjective Physical Exam Constitutional: WD/WN, vitals as above Decreased appetite Eyes: PERRL, conjunctivae normal, anicteric sclerae ENMT: Dry mucus membranes Neck: trachea midline, no thyromegaly Respiratory: normal respiratory effort, lungs clear to auscultation Cardiovascular: RRR, no murmur, no edema Gastrointestinal (Abdomen): Hypoactive bowel sounds, tenderness in RUQ Skin: Non-tender erythema around 3 piercings under the right clavicle. No purulence or drainage. Psychiatric: Anxious affect Results & Data Results & Data Vital Signs (Past 12 Hours) Vital Signs Temp Pulse Pulse Resp BP Pulse Ox O2 Del Method 05/06/24 07:15 37.0 C 61 18 133/73 90 Room Air 05/06/24 07:01 62 05/06/24 02:44 36.6 C 64 18 132/83 95 Nasal Cannula 05/05/24 22:22 37.6 C H 69 18 142/80 H 93 Nasal Cannula 05/05/24 21:47 64 05/05/24 21:31 Nasal Cannula O2 Flow Rate 05/06/24 07:15 05/06/24 07:01 05/06/24 02:44 2 05/05/24 22:22 2 05/05/24 21:47 05/05/24 21:31 3 (4) Nausea & vomiting Vomiting type: unspecified Qualified Code(s): R11.2 - Nausea with vomiting, unspecified
--- NOTE | 2024-05-06 09:29 | Anesthesiology Consultation ---
Date of Service May 06, 2024 Assessment & Plan (1) Encounter for pre-operative examination: Chart Review Chart Review: Acceptable Risk for Surgery and Patient NOT seen in Pre Admission Testing Consults Requested none History Surgery Operation Date: 05/06/24 07:00 Proposed Procedures p Esophagogastroduodenoscopy - Bennie Guidry MD Height/Weight Height: 5 ft 10 in Weight: 118 kg Allergies Allergy/AdvReac Type Severity Reaction Status Date / Time ampicillin Allergy Severe Anaphylaxis Verified 04/05/24 15:24 bee venom protein (honey bee) Allergy Severe Anaphylaxis Verified 04/05/24 15:24 droperidol [From Inapsine] Allergy Severe TONGUE Verified 04/05/24 15:24 SWELLED, HIVES Penicillins Allergy Severe Anaphylaxis Verified 04/05/24 15:24 promethazine [From Phenergan] Allergy Intermediate Hives Verified 04/05/24 15:24 Medications Home Medications Medication Instructions Recorded Confirmed Last Taken epinephrine 0.3 mg/0.3 mL 0.3 mg (0.3 mL) IM DIRECTED PRN 05/23/23 04/05/24 Unknown injection, auto-injector (EpiPen) Allergic Reaction #2 ea lamotrigine 150 mg tablet 150 mg PO BID #180 tabs 09/07/23 04/05/24 11/05/23 20:00 lamotrigine 25 mg tablet 25 mg PO BID seizure #180 tabs 09/07/23 04/05/24 11/05/23 20:00 levetiracetam 500 mg tablet 1,000 mg (2 x 500 mg) PO BID #360 09/07/23 04/05/24 11/05/23 20:00 (Keppra) tabs albuterol sulfate 90 mcg/actuation 2 inh inhalation Q4H PRN shortness 10/11/23 04/05/24 11/05/23 20:00 aerosol inhaler of breath or wheezing #8.5 grams hydroxyzine HCl 25 mg tablet 25 mg PO QID #120 tabs 12/04/23 04/05/24 Unknown levothyroxine 300 mcg tablet 300 mcg PO UD 12/18/23 04/05/24 Unknown midazolam 5 mg/spray (0.1 mL) 1 spray intranasal .COMPLEX #2 ea 01/02/24 04/05/24 Unknown nasal spray (Nayzilam) citalopram 40 mg tablet 40 mg PO HS #90 tabs 04/18/24 Unknown Active Medications Generic Name Dose Route Start Last Admin Trade Name Freq PRN Reason Stop Dose Admin Acetaminophen 1,000 mg in 100 mls @ 400 mls/hr 05/04/24 08:00 05/06/24 08:35 Ofirmev IV 05/07/24 07:59 Infused Q8H MARIELOS Infusion Pantoprazole Sodium 40 mg in 10 mls @ 5 mls/min 05/04/24 09:00 05/06/24 07:56 Protonix IV 06/03/24 08:59 5 mls/min BID MARIELOS Administration Lamotrigine 75 mg 05/04/24 09:00 05/05/24 21:55 Lamotrigine 25 Mg Tab PO 06/03/24 08:59 75 mg BID MARIELOS Administration Protocol Lamotrigine 100 mg 05/04/24 09:00 05/05/24 21:55 Lamotrigine 100 Mg Tab PO 06/03/24 08:59 100 mg BID MARIELOS Administration Levetiracetam 1,000 mg 05/04/24 10:00 05/06/24 07:57 Levetiracetam 500 Mg/5 Ml Vial IV 06/03/24 09:59 1,000 mg BID MARIELOS Administration Miconazole Nitrate 1 appln 05/05/24 16:14 05/05/24 17:22 Miconazole Nitrate Powder 85 Gm EXT 06/04/24 16:13 1 appln PRN PRN Administration Affected Skin Folds Ondansetron HCl 4 mg 05/04/24 02:10 05/05/24 20:00 Ondansetron Inj 2 Mg/Ml 2 Ml Vial IV 06/03/24 02:09 4 mg Q6H PRN Administration Nausea And Vomiting Past Medical History Medical History History of COVID-19 End of 09/2023--fever, cough, head cold, no taste, was on paxlovid--all resolved Prediabetes PFO (patent foramen ovale) f/u dr. 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 [employer] Stroke-like symptoms 2021, "found to not be a stroke," no current issues Severe obstructive sleep apnea duplicate Headache resolved GILBERTO on CPAP VTE (venous thromboembolism) history of RLE DVT s/p anticoagulation Breast cancer dx 2002; In remission s/p lumpectomy and chemotherapy Hypothyroidism Past Family History Family History Mother Breast cancer Grandmother (Maternal) Breast cancer Grandmother (Maternal) Myocardial infarction Grandfather (Maternal) Myocardial infarction Aunt Diabetes Ovarian cancer Uncle Diabetes Grandmother (Paternal) Diabetes Sister Ovarian cancer Breast cancer Other Cancer No family history of adverse response to anesthesia Denies family history of Prostate cancer Colorectal cancer Past Surgical History Surgical History History of arthroscopy of left knee 08/2023 History of carpal tunnel surgery of left wrist Hx of thumb surgery tendon and ligament sx Hx of appendectomy History of esophagogastroduodenoscopy (EGD) Hx of colonoscopy Hx of tonsillectomy History of lumpectomy left History of wisdom tooth extraction Social History Smoking Status: Former smoker tobacco type: cigarettes Smoking cigarettes per day: 1/2 PPD Do You Dip or Chew Tobacco: No Hx Alcohol Use: No alcohol intake frequency: holidays/special occasions only Hx Substance Use: No substance use type: marijuana Last Used Substance Other:: 2021 Physical Exam Vital Signs Last Vital Signs Temp 98.6 F 05/06/24 07:15 Pulse 61 05/06/24 07:15 Resp 18 05/06/24 07:15 BP 133/73 05/06/24 07:15 Pulse Ox 90 05/06/24 07:15 O2 Del Method Room Air 05/06/24 07:15 O2 Flow Rate 2 05/06/24 02:44 Testing Laboratory Results 05/06/24 06:45 05/06/24 06:14 Urine Color Yellow 05/03/24 23:30 Urine Appearance Clear (Clear) 05/03/24 23:30 Urine pH 5.5 (4.5-7.5) 05/03/24 23:30 Ur Specific [place] > 1.045 (1.000-1.030) H 05/03/24 23:30 Urine Protein Negative (Negative) 05/03/24 23:30 Urine Glucose (UA) Negative (Negative) 05/03/24 23:30 Urine Ketones Negative (Negative) 05/03/24 23:30 Urine Nitrite Negative (Negative) 05/03/24 23:30 Ur Leukocyte Esterase Negative (Negative) 05/03/24 23:30 Electrocardiogram Date: 12/31/23 Findings: + NSR @
--- NOTE | 2024-05-06 10:04 | History & Physical Bridge Note ---
Date of Service May 06, 2024 History & Physical Bridge Note I have examined the patient, reviewed the History & Physical and in the interval since the performance of the History & Physical I have noted the following changes of clinical significance: no changes noted. Patient still with ongoing RUQ pain. no nausea, vomiting. no shortness of breath, chest pain. she has been NPO. - set up for EGD today, will proceed. Supervising Physician Co-Signing Physician Notes I personally saw and examined the patient. I have reviewed the chart and agree with the documentation provided by the TOWBOAT ENGINEER including discussion about the assessment, treatment and plan. Will proceed with EGD. Will have to do an OR as she had a seizure and has some nausea. Suspect biliary colic but will rule out peptic ulcer disease.
[2024-05-06 10:05] LABS: Hematocrit (blood only) 31.3 % (37.0-47.0); Hemoglobin 10.5 g/dl (12.0-16.0); Mean Corpuscular Hemoglobin 30.7 pg (25.0-34.0); Mean Corpuscular Hgb Conc 33.5 g/dL (32.0-36.0); Mean Corpuscular Volume 91.5 fL (80.0-100.0); Mean Platelet Volume 10.5 fL (9.4-12.4); Platelet Count 240 K/uL (130-400); RDW Coefficient of Variation 12.2 % (11.5-14.5); RDW Standard Deviation 41.1 fL (36.4-46.3); Red Blood Count 3.42 M/uL (4.20-5.40); White Blood Count 10.72 K/ul (4.8-10.8)
[2024-05-06] MEDS: HYDROmorphone INJ 0.5 MG/0.5 ML SYR IV STA (10:05)
[2024-05-06] MEDS ORDERED: ONDANSETRON INJ 2 MG/ML 2 ML VIAL IV PRN (10:20)
[2024-05-06] MEDS ORDERED: fentaNYL citrate PF 100 MCG/2 ML VIAL IV PRN (10:20)
[2024-05-06] MEDS ORDERED: ePHEDrine sulfate 50 MG/ML AMP IV PRN (10:20)
[2024-05-06] MEDS ORDERED: ATROPINE SULFATE 0.1 MG/ML 10ML SYR IV PRN (10:20)
[2024-05-06] MEDS ORDERED: fentaNYL citrate PF 100 MCG/2 ML VIAL ONE (10:34)
--- NOTE | 2024-05-06 10:50 | Communication Note ---
Date of Service: May 06, 2024 Patient seen in passing on her way to undergo EGD. She is still having pain. Discussed with RN, pt had seizure yesterday along with nausea/vomiting. Remains with complaints of abdominal pain, unable to tolerate much diet. We will follow up on EGD results and see patient again tomorrow AM for further recommendations.
[2024-05-06] MEDS: LACTATED RINGER'S 1,000 ML IV SCH (10:52)
[2024-05-06] MEDS ORDERED: MIDAZOLAM HCL 1 MG/ML 2ML VIAL ONE (11:07)
[2024-05-06 11:10] LABS: Pregnancy Test, Serum Negative (Negative)
--- NOTE | 2024-05-06 12:18 | GI REPORT ---
[facility] Patient: RANULFO ROLLINS : 1970 Sex at : Female Age: 54 Years Procedure: Upper GI endoscopy Date: 05/06/2024 Attending Physician: Bennie Guidry MD Referring MD: Referred Self Indications: - Epigastric abdominal pain - Nausea with vomiting Medications: - Monitored Anesthesia Care Complications: - No immediate complications. Estimated Blood Loss: - Estimated blood loss: None. Procedure: - Prior to the procedure, a History and Physical was performed, and patient medications and allergies were reviewed. The patient's tolerance of previous anesthesia was also reviewed. The risks and benefits of the procedure and the sedation options and risks were discussed with the patient. All questions were answered, and informed consent was obtained. Prior Anticoagulants: The patient has taken no anticoagulant or antiplatelet agents. ASA Grade Assessment: III - A patient with severe systemic disease. After reviewing the risks and benefits, the patient was deemed in satisfactory condition to undergo the procedure. - The EGD scope was introduced through the mouth and advanced to the third part of the duodenum. - The upper GI endoscopy was accomplished without difficulty. - The patient tolerated the procedure well. Findings: - The examined esophagus was normal. - Diffuse moderate inflammation characterized by erythema was found in the gastric antrum and in the gastric body. Biopsies were taken with a cold forceps for Helicobacter pylori testing. - The examined duodenum was normal. Impression: - Normal esophagus. - Acute gastritis, characterized by erythema. Biopsied. - Normal examined duodenum. Recommendation: - Discharge patient to home (ambulatory). - Resume previous diet. - Continue present medications. - Await pathology results. - Return to primary care physician as previously scheduled. - Patient has a contact number available for emergencies. The signs and symptoms of potential delayed complications were discussed with the patient. Return to normal activities tomorrow. Written discharge instructions were provided to the patient. - Mild gastritis noted. No source of abdominal pain in EGD. Would suggest to proceed with cholecystectomy as per general surgery. GI will sign off please call with questions Procedure Code(s): - 96165, Esophagogastroduodenoscopy, flexible, transoral; with biopsy, single or multiple Diagnosis Code(s): - R10.13, Epigastric pain - R11.2, Nausea with vomiting, unspecified - K29.00, Acute gastritis without bleeding CPT(R) - 2022 copyright [employer]. All Rights Reserved. The CPT codes, CCI edits and ICD codes generated are intended as suggestions and were generated based on input data. These codes are preliminary and upon tracer clerk review may be revised to meet current compliance and payer requirements. The provider is responsible for the final determination of appropriate codes, and modifiers. Bennie Guidry MD This document has been electronically signed. Note Initiated:05/06/2024 Note Completed:05/06/2024 12:18 PM \\[email or web address]\[id number]
--- NOTE | 2024-05-06 13:09 | Anesthesiology Progress Note ---
Date of Service May 06, 2024 Anesthesia Post Procedure Vital Signs Vital Signs: Temp Pulse Pulse Pulse Resp BP Pulse Ox 05/06/24 13:05 55 L 14 130/68 96 05/06/24 12:55 36.6 C 56 L 14 129/59 L 96 05/06/24 12:45 64 13 113/59 L 91 05/06/24 12:35 63 16 146/70 H 93 05/06/24 12:26 36 C L 64 18 132/68 92 05/06/24 10:31 36.6 C 55 L 20 164/58 H 90 05/06/24 09:44 05/06/24 07:15 37.0 C 61 18 133/73 90 05/06/24 07:01 62 05/06/24 02:44 36.6 C 64 18 132/83 95 05/05/24 22:22 37.6 C H 69 18 142/80 H 93 05/05/24 21:47 64 05/05/24 21:31 05/05/24 19:26 37.0 C 65 18 125/78 95 05/05/24 16:15 37.0 C 60 16 124/69 95 05/05/24 14:12 60 O2 Del Method O2 Flow Rate 05/06/24 13:05 Nasal Cannula 2 05/06/24 12:55 Nasal Cannula 2 05/06/24 12:45 Room Air 0 05/06/24 12:35 Nasal Cannula 4 05/06/24 12:26 Nasal Cannula 5 05/06/24 10:31 Room Air 05/06/24 09:44 Room Air 05/06/24 07:15 Room Air 05/06/24 07:01 05/06/24 02:44 Nasal Cannula 2 05/05/24 22:22 Nasal Cannula 2 05/05/24 21:47 05/05/24 21:31 Nasal Cannula 3 05/05/24 19:26 Nasal Cannula 2 05/05/24 16:15 Room Air 05/05/24 14:12 Pain Intensity Right Lower Abdomen: Pain Intensity: 7 Right Upper Medial Back: Pain Intensity: 5 Transfer of Care Handoff Completed per policy Notes Mental Status: alert / awake / arousable and participated in evaluation Nausea / Vomiting: adequately controlled Pain: adequately controlled Airway Patency, RR, SpO2: stable & adequate BP & HR: stable & adequate Hydration State: stable & adequate Anesthetic Complications: no major complications apparent and Pt Satisfied with anesthetic care
[2024-05-06] MEDS: HYDROmorphone INJ 0.5 MG/0.5 ML SYR IV PRN (14:38)
[2024-05-06] MEDS: PROCHLORPERAZINE 10 MG in SYRINGE 8 ML IV PRN (18:56)
[2024-05-06] MEDS: FAMOTIDINE 20 MG TAB PO SCH (21:15)
[2024-05-06] MEDS: MUPIROCIN 2% OINT 22 GM TUBE EXT SCH (21:15)
[2024-05-07 06:13] LABS: Hematocrit (blood only) 34.5 % (37.0-47.0); Hemoglobin 11.7 g/dl (12.0-16.0); Mean Corpuscular Hemoglobin 30.2 pg (25.0-34.0); Mean Corpuscular Hgb Conc 33.9 g/dL (32.0-36.0); Mean Corpuscular Volume 88.9 fL (80.0-100.0); Mean Platelet Volume 10.4 fL (9.4-12.4); Platelet Count 274 K/uL (130-400); Red Blood Count 3.88 M/uL (4.20-5.40); White Blood Count 9.83 K/ul (4.8-10.8)
[2024-05-07 06:33] LABS: Potassium 3.9 mmol/L (3.5-5.1)
[2024-05-07 06:34] LABS: Albumin Globulin Ratio 1.6 (0.9-2); Albumin Level 3.9 gm/dl (3.4-5.0); Bilirubin,Total 0.4 mg/dl (0.2-1.0); Calcium 9.7 mg/dl (8.6-10.3); Creatinine Clr Calc Pharmacy 179.3 ml/min; Globulin 2.4 gm/dl (2.5-4.0); Total Protein 6.3 gm/dl (6.0-8.3)
--- NOTE | 2024-05-07 07:45 | Surgery Progress Note ---
Date of Service May 07, 2024 Assessment & Plan (1) Right upper quadrant abdominal pain: Plan: Pt here w/ RUQ/epigastric pain, imaging thus far revealed gallstones without evidence of cholecystitis on CT scan and US Yesterday patient underwent an EGD which revealed some mild gastritis and GI signed off Today WBC normal at 9 and LFTs are unremarkable Her pain is tolerable this AM and mild upon palpation in the RUQ/epigastric regions A HIDA scan is pending for further evaluation, if negative and patient's symptoms are controlled could consider diet advancement and f/u as an outpt to discuss elective surgery If + for acute maryjane she will then benefit from surgical intervention this admission We will f/u on HIDA results and provide recommendations thereafter. it is scheduled for 1030 this morning UPDATE: After rounds with the surgeon patient with ongoing pain, although improved from Monday. Options discussed with patient regarding abx and outpatient follow up/surgery vs performing it while inpatient. Patient never wants to experience the pain like she had last monday, which occurred after eating fried eggs in butter. She is opting for surgical intervention this admission. The OR is able to accomodate us today. The patient has been NPO. Will order EKG. Discussed with hospitalist who are agreeable with the plan. Consent obtained by Dr. Kylie Soni Admission and Anticipated Discharge Date Admission Date: May 04, 2024 Supervising Physician Co-Signing Physician Notes I have seen and examined this patient this am with the surgical PA. She continues with RUQ TTP and right upper back pain consistent with ongoing biliary symptoms in the face of GB disease as noted on her abdominal US showing multiple stones in her GB. Would recommend cholecystectomy sooner than later considering her seizure d/o with concerns that the pain from this attack may have been the culprit. (-) EGD yesterday. No need for HIDA. Pt has been consented for robotic or laparoscopic cholecystectomy as available by the OR. Consent has been obtained and is on the chart. Subjective Patient feeling okay this AM. reports some RUQ/epigastric pain, but this is a little improved from admission. denies any seizures from overnight. inquiring if she can go home today Physical Exam Physical Exam: awake/alert, no distress Gastrointestinal (Abdomen): Percussion/Palpation: + abdomen tender (mild discomfort in RUQ/epigastric region) and abdomen soft Results & Data Vital Signs (Past 12 Hours) Vital Signs Temp Pulse Pulse Resp BP Pulse Ox O2 Del Method 05/07/24 07:36 97.3 F L 57 L 18 169/78 H 95 Room Air 05/07/24 07:00 56 L 05/07/24 02:21 97.5 F L 56 L 18 147/81 H 97 Nasal Cannula 05/06/24 23:32 38 L 05/06/24 22:35 98.1 F 46 L 18 161/88 H 92 Room Air O2 Flow Rate 05/07/24 07:36 05/07/24 07:00 05/07/24 02:21 2 05/06/24 23:32 05/06/24 22:35 PG Care Time/CCT Total # of Minutes Spent Total Time Spent with Patient: Total time spent is greater than 50% in coordination of care (as documented) at patient's floor/unit and/or counseling patient: Coding Level of Care Code 33812 SUB INP/OBS CARE 03/02MIN Diagnoses Right upper quadrant abdominal pain R10.11
[2024-05-07] MEDS ORDERED: ROCURONIUM BROMIDE 10 MG/ML 5 ML VIAL IV ONE (10:14)
[2024-05-07] MEDS ORDERED: LIDOCAINE 2% 2 ML VIAL/AMP(20MG/ML) INFIL ONE (10:14)
[2024-05-07] MEDS ORDERED: PROPOFOL IV EMULSION 10 MG/ML 20 ML VIAL IV ONE (10:14)
[2024-05-07] MEDS ORDERED: MIDAZOLAM HCL 1 MG/ML 2ML VIAL ONE (10:15)
[2024-05-07] MEDS ORDERED: fentaNYL citrate PF 100 MCG/2 ML VIAL ONE ×2 (10:15→12:01)
[2024-05-07] MEDS ORDERED: DEXAMETHASONE SOD INJ 4 MG/ML VIAL ONE (10:18)
[2024-05-07] MEDS ORDERED: ONDANSETRON INJ 2 MG/ML 2 ML VIAL ONE (10:18)
[2024-05-07] MEDS ORDERED: ACETAMINOPHEN 1000 MG/100 ML IV IV ONE (10:52)
[2024-05-07] MEDS ORDERED: ONDANSETRON INJ 2 MG/ML 2 ML VIAL IV PRN (11:05)
[2024-05-07] MEDS ORDERED: ePHEDrine sulfate 50 MG/ML AMP IV PRN (11:05)
[2024-05-07] MEDS ORDERED: ATROPINE SULFATE 0.1 MG/ML 10ML SYR IV PRN (11:05)
[2024-05-07] MEDS: CLINDAMYCIN/D5W 900 MG/50 ML BAG IV SCH (11:23)
--- NOTE | 2024-05-07 11:31 | Electrocardiogram Report ---
Test Reason : Blood Pressure : */* mmHG Vent. Rate : 48 BPM Atrial Rate : 48 BPM P-R Int : 224 ms QRS Dur : 104 ms QT Int : 486 ms P-R-T Axes : 45 42 46 degrees QTcB Int : 434 ms Sinus bradycardia with 1st degree A-V block Otherwise normal ECG When compared with ECG of 18-Dec-2023 14:11, UT interval has increased Vent. rate has decreased by 37 bpm Confirmed by Amador Rodríguez ([id number]) on 05/07/2024 11:31:06 AM Referred By: REFERRED SELF Confirmed By: Amador Rodríguez
[2024-05-07] MEDS ORDERED: SUGAMMADEX SODIUM 200 MG/2 ML VIAL IV ONE (12:20)
[2024-05-07] MEDS ORDERED: HYDROmorphone INJ 2 MG/ML SYR/VIAL ONE (12:32)
[2024-05-07] MEDS ORDERED: SODIUM CHLORIDE 0.9% PF INJ 10 ML VIAL ONE (12:33)
[2024-05-07] MEDS: BUPIVACAINE/EPINEPHRINE 0.5% MPF 1:200,000 30 ML VIAL ONE (12:49)
--- NOTE | 2024-05-07 13:01 | Operative Report ---
PG Post Operative Report Pre & Post Diagnosis Operation Date: 05/07/24 10:30 Pre-Op Diagnosis: Right upper quadrant abdominal pain Post-Op Diagnosis: Right upper quadrant abdominal pain I identified the patient and participated in the time-out.: Yes Procedure Operation Date: 05/07/24 10:30 Actual Procedures p Laparoscopic Cholecystectomy(Not Applicable) - Yara Berger DO Surgeon Yara Berger DO Liquefaction Supervisor MERE [place] Estimated Blood Loss 10 Findings See Below evidence for early acute cholecystitis with pericholecystic fluid and edema Specimens Gallbladder Anesthesia Type General Complications No immediate complications Indications persistent RUQ pain with cholelithiasis Description of Procedure The patient was brought back to the operating room placed on the operating room table in supine position. She was connected to cardiac and oxygen monitoring. Supplemental O2 was provided and SCDs were applied to bilateral lower extremities. General anesthesia was administered and a secure airway was established. The abdomen was prepped and draped in typical sterile fashion and a timeout was conducted. Prior to making all incisions, the skin and subcutaneous tissue was anesthetized using local anesthetic and all incisions were made with 11 blade. Intra-abdominal access was gained at the supraumbilical fold using a Veress needle and this was confirmed with a saline drop test. CO2 insufflation was initiated and pneumoperitoneum was established to a goal pressure of 15 mmHg once this pressure was reached, a 5 mm trocar was inserted using direct visualization with a 5 mm laparoscope and Optiview port. Under direct visualization, an 11 mm trocar was inserted the epigastric area and 2 additional 5 mm trocars along the right subcostal margin. The patient was positioned in reverse Trendelenburg and left side down. The gallbladder was identified in its usual anatomic location. The delinquent tax collection assistant grasped the gallbladder at the fundus and retracted superiorly. The cystic triangle was dissected to expose the critical view of safety. There was some bleeding around this area as there was excess fatty tissue that was very vascular. This was controlled using gentle cautery. Once the critical view was exposed, the cystic artery was first ligated using two 5 mm clips proximally 1 distally and then transected. The cystic duct was then treated in the same manner, the proximal clip was placed high up on the gallbladder side and this in the process of manipulation, small amount of bile did start to drain from the inferior aspect of the gallbladder. The bile was dark in color and thick. The gallbladder was cauterized away from the liver bed, bleeding along the way was controlled with cautery. The gallbladder was placed in an Endo Catch bag and removed from the epigastric incision which did need to be slightly stretched to allow for removal. The gallbladder was then placed in a label container sent to pathology for further analysis. The right upper quadrant was inspected for hemostasis. There was an area of excess serosal tissue off the inferior aspect of the liver bed and this was controlled using a 5 mm clip after a failed cautery attempt. The area was copiously irrigated until the fluid ran clear and was suctioned away. The liver bed was checked multiple times for hemostasis as well as the previously bleeding area that was clipped. The OR table was returned to the neutral position and mobilized excess irrigant was again suctioned away from the perihepatic space. There was absolutely no bleeding and no evidence for any leaking. The instruments were removed. CO2 insufflation was discontinued and excess pneumoperitoneum was evacuated. The fascia at the epigastric incision was closed using 0 Vicryl suture. Additional local anesthetic was injected at all incision sites. All incisions were closed with 4-0 Vicryl suture and further sealed with Dermabond. The patient was awakened from anesthesia, the secure airway was removed and she was transferred to recovery in stable condition. I attest to the content of the Intraoperative Record and any orders documented therein. Any exceptions are noted below.
[2024-05-07] MEDS: HYDROmorphone INJ 2 MG/ML SYR/VIAL IV PRN (13:07)
--- NOTE | 2024-05-07 13:24 | Hospitalist Progress Note ---
Date of Service May 07, 2024 Assessment & Plan (1) Biliary colic: Plan: LFTs WNL AP CT revealed 13 mm calcified gallstone within nondilated gallbladder, no surrounding inflammation, biliary ductal dilation, or choledocholithiasis seen US ABD no evidence of cholecystitis Pantoprazole IV BID General Surgery team consulted EGD was normal Cholecystectomy performed on 05/07/2024 Supportive and symptomatic care with clear liq diet, pain control, antiemetics and IVF Observe overnight, possible discharge tomorrow (2) Seizure: Plan: Grand mal seizure in ED secondary to pain, received Ativan 1 Mg IV S/p VNS 12/06/[address] negative On-call neurologist recommended additional 1 g of IV Keppra, continue Lamictal Neurology consult requested by anesthesia and surgery before cholecystectomy seizure precautions (3) Skin infection: Plan: - Pt got skin under R clavicle pierced 4 weeks ago - Non-tender erythema around 3 piercings under the right clavicle. No purulence or drainage. - Apply mupirocin 2% BID (4) Diarrhea: Plan: Self limited / resolved if recurrent will check C diff (5) Nausea & vomiting: (6) Acute dehydration: (7) Hypotension: Plan #leukocytosis WBC 12.33 on presentation resolved trend CBC # Anemia Likely dilutional after IVF Check iron stds and FOBT Monitor CBC #incidental finding AP CT revealed 1 cm left adrenal nodule that measures 54 HU, nonspecific - if no history of malignancy, consider follow-up low-dose noncontrast adrenal CT or chemical shift adrenal MRI in 12 months - If history of malignancy, recommend low-dose nonemergent noncontrast adrenal CT or chemical shift adrenal MRI follow-up study follow up with PCP Chronic stable diagnoses: OSACPAP at bedtime Depressionholding citalopram Anxietyholding hydroxyzine Hypothyroidismholding levothyroxine VTE ppx: SCDs, defer chemical ppx with possible surgical managment above Diet: Clear liq, NPO at midnight Dispo: Med/tele with IV opioids Patient is a 54-year-old female with a past medical history of PFO, anemia, seizure disorder, GILBERTO, hypothyroidism, breast cancer. She resented via EMS due to right sided abdominal pain x 1 week with nausea, vomiting, and diarrhea. Upon arrival to ED patient had a witnessed grand mal seizure that lasted 45 to 60 seconds. ER provider stated he spoke with on-call neurologist, Dr. Gifford, who recommended patient have additional 1 g of Keppra on to her evening scheduled [address] revealed 13 mm calcified gallstone within nondilated gallbladder, with an adequate pain control in ED, patient is being admitted for biliary colic. She underwent cholecystectomy on 05/07/2024. Admission and Anticipated Discharge Date Admission Date: May 04, 2024 Supervising Physician Co-Signing Physician Notes I personally examined the patient and verified simpson points of history and exam, discussed case, and agree with decision making and plan documented by Dr. Dino Sandoval. Patient POD0 for laparoscopic cholecystectomy. Will monitor for pain control. Subjective Patient feeling okay this AM. Reports 6/10 RUQ/epigastric pain, but this is a little improved from yesterday. Denies any seizures from overnight. We discussed her options regarding upcoming treatment, such as a HIDA scan and cholecystectomy. Pt reported vomiting 2 times last night. The first episode was yellow emesis, the second episode was clearer. No bowel moments since admission. No jaundice. Review of Systems Review of Systems: All systems reviewed & are unremarkable except as noted in Subjective Physical Exam Constitutional: WD/WN, vitals as above Eyes: PERRL, conjunctivae normal, anicteric sclerae Neck: trachea midline, no thyromegaly Respiratory: normal respiratory effort, lungs clear to auscultation Cardiovascular: RRR, no murmur, no edema Results & Data Results & Data Vital Signs (Past 12 Hours) Vital Signs Temp Pulse Pulse Pulse Resp BP Pulse Ox 05/07/24 10:44 36.5 C 57 L 20 182/89 H 99 05/07/24 08:00 05/07/24 07:36 36.3 C L 57 L 18 169/78 H 95 05/07/24 07:00 56 L 05/07/24 02:21 36.4 C L 56 L 18 147/81 H 97 O2 Del Method O2 Flow Rate 05/07/24 10:44 Room Air 05/07/24 08:00 Room Air 05/07/24 07:36 Nasal Cannula 2 05/07/24 07:00 05/07/24 02:21 Nasal Cannula 2 Resident Activity Tracking Resident Involvement: Resident Care Provided Care Provided: Adult Hospital Medicine (5) Nausea & vomiting Vomiting type: unspecified Qualified Code(s): R11.2 - Nausea with vomiting, unspecified
[2024-05-07] MEDS ORDERED: ACETAMINOPHEN 325 MG TAB PO PRN (14:02)
[2024-05-07] MEDS ORDERED: oxyCODONE HCL IR 5 MG TAB (IMMEDIATE RELEASE) PO PRN ×2 (14:02)
[2024-05-07] MEDS: Nursing to Pharmacy Communication SCH (14:11)
[2024-05-07] MEDS: HYDROmorphone INJ 1 MG/ML SYRINGE IV PRN (16:20)
[2024-05-08 06:48] LABS: Basophils # (auto) 0.01 K/uL (0.00-0.20); Basophils % (auto) 0.1 %; Eosinophils # (auto) 0.01 K/uL (0.00-0.50); Eosinophils % (auto) 0.1 %; Hematocrit (blood only) 33.1 % (37.0-47.0); Hemoglobin 11.3 g/dl (12.0-16.0); Immature Granulocytes # (auto) 0.07 K/uL (0.01-0.20); Immature Granulocytes % (auto) 0.6 %; Lymphocytes # (auto) 1.58 K/uL (1.20-3.40); Lymphocytes % (auto) 13.5 %; Mean Corpuscular Hemoglobin 30.4 pg (25.0-34.0); Mean Corpuscular Hgb Conc 34.1 g/dL (32.0-36.0); Mean Platelet Volume 10.7 fL (9.4-12.4); Monocytes # (auto) 0.86 K/uL (0.11-0.59); Monocytes % (auto) 7.4 %; Neutrophils # (auto) 9.17 K/uL (1.40-6.50); Neutrophils % (auto) 78.3 %; Platelet Count 265 K/uL (130-400); RDW Standard Deviation 38.8 fL (36.4-46.3); Red Blood Count 3.72 M/uL (4.20-5.40)
[2024-05-08 07:14] LABS: Albumin Globulin Ratio 1.7 (0.9-2); Albumin Level 3.8 gm/dl (3.4-5.0); BUN Creatinine Ratio 13.7 (10-20); Bilirubin,Total 0.4 mg/dl (0.2-1.0); Calcium 9.5 mg/dl (8.6-10.3); Globulin 2.2 gm/dl (2.5-4.0); Potassium 3.5 mmol/L (3.5-5.1)
[2024-05-08 08:00] VITALS: RESP 16; TEMP 98.6; O2SAT 94
--- NOTE | 2024-05-08 08:49 | Surgery Progress Note ---
Date of Service May 08, 2024 Assessment & Plan (1) Biliary colic: Plan: POD 1 Lap maryjane pt reports she is feeling well post surgery, mild post surgical soreness in abd. has c/o of nausea and emesis, is taking sips of water VSS , wbc mild elevation likely reactive, incisions CDI dermabond no s/s infection Encouraged OOB with nursing assist, ambulate as able in halls to encourage flatus would not advance past clears/sips at this time until N/V resides, then [place] IS Q1h while awake Pt to follow up with Dr Berger in office 2-3 weeks , call with questions/concerns Admission and Anticipated Discharge Date Admission Date: May 04, 2024 Supervising Physician Co-Signing Physician Notes I have seen and examined this patient this am, I agree with the assessment and plan, LFTs without concerning changes. May discharge when tolerating low fat diet and medically stable. Surgery to sing off at this time. Subjective pt denies abd pain +nausea +vomiting urinating w/o difficulty Review of Systems Constitutional: + chills; no fever Respiratory: no dyspnea Cardiovascular: no chest pain Gastrointestinal: + nausea and + vomiting; no abdominal pa in Genitourinary: no dysuria Psychiatric: no confusion Physical Exam Constitutional: cooperative and comfortable; no acute distress Respiratory: normal respiratory effort and able to speak in complete sentences; no respiratory distress Cardiovascular: Rate/Rhythm: + bradycardic (59) Gastrointestinal (Abdomen): Inspection/Auscultation: + abdominal surgical incision (cdi dermabond); abdomen not distended Percussion/Palpation: abdomen soft Psychiatric: Orientation: alert and oriented x 3 Results & Data Vital Signs (Past 12 Hours) Vital Signs Temp Pulse Pulse Pulse Resp BP Pulse Ox 05/08/24 07:57 98.6 F 59 L 16 178/102 H 94 05/08/24 06:57 56 L 05/08/24 02:43 98.1 F 55 L 18 144/74 H 95 05/07/24 22:50 05/07/24 22:28 98.2 F 56 L 18 167/80 H 96 05/07/24 21:51 54 L O2 Del Method O2 Flow Rate 05/08/24 07:57 Room Air 05/08/24 06:57 05/08/24 02:43 Nasal Cannula 2 05/07/24 22:50 Nasal Cannula 2 05/07/24 22:28 Nasal Cannula 2 05/07/24 21:51 Results CBC w Diff Results: RBC 3.72 M/uL (4.20-5.40) L 05/08/24 WBC 11.70 K/ul (4.8-10.8) H 05/08/24 Hgb 11.3 g/dl (12.0-16.0) L 05/08/24 Hct 33.1 % (37.0-47.0) L 05/08/24 MCV 89.0 fL (80.0-100.0) 05/08/24 MCH 30.4 pg (25.0-34.0) 05/08/24 MCHC 34.1 g/dL (32.0-36.0) 05/08/24 RDW Standard Deviation 38.8 fL (36.4-46.3) 05/08/24 RDW Coefficient of Variation 12.0 % (11.5-14.5) 05/08/24 Plt Count 265 K/uL (130-400) 05/08/24 MPV 10.7 fL (9.4-12.4) 05/08/24 Neutrophils (%) (Auto) 78.3 % 05/08/24 Lymphocytes (%) (Auto) 13.5 % 05/08/24 Monocytes # (Auto) 0.86 K/uL (0.11-0.59) H 05/08/24 Eosinophils # (Auto) 0.01 K/uL (0.00-0.50) 05/08/24 Immature Granulocyte % (Auto) 0.6 % 05/08/24 Neutrophils # (Auto) 9.17 K/uL (1.40-6.50) H 05/08/24 Lymphocytes # (Auto) 1.58 K/uL (1.20-3.40) 05/08/24 Monocytes # (Auto) 0.86 K/uL (0.11-0.59) H 05/08/24 Eosinophils # (Auto) 0.01 K/uL (0.00-0.50) 05/08/24 Basophils # (Auto) 0.01 K/uL (0.00-0.20) 05/08/24 Immature Granulocyte # (Auto) 0.07 K/uL (0.01-0.20) 5 PG Care Time/CCT Total # of Minutes Spent Total Time Spent with Patient: Total time spent is greater than 50% in coordination of care (as documented) at patient's floor/unit and/or counseling patient: Coding Level of Care Code 74292 Post Operative Follow-Up Diagnoses Biliary colic K80.50
--- NOTE | 2024-05-08 14:30 | Discharge Summary ---
Date of Service May 08, 2024 Admission HPI Per Admitting Provider Patient is a 54-year-old female with a past medical history of PFO, anemia, seizure disorder, GILBERTO, hypothyroidism, breast cancer. She resented via EMS due to right sided abdominal pain x 1 week with nausea, vomiting, and diarrhea. Upon arrival to ED patient had a witnessed grand mal seizure that lasted 45 to 60 seconds. ER provider stated he spoke with on-call neurologist, Dr. Gifford, who recommended patient have additional 1 g of Keppra to her evening scheduled [address] revealed 13 mm calcified gallstone within nondilated gallbladder, with an adequate pain control in ED, patient is being admitted for biliary colic. Patient seen at bedside.She was crying in pain and stated her pain is still 8/10 even after receiving 8 mg of IV morphine recently in the ED. She stated she has had right lower quadrant and right low back pain for approximately a week that has come and gone. It did get worse with meals. This morning she had 3 episodes of diarrhea and then developed significant right lower quadrant abdominal pain that has been constant since. She cannot get comfortable. She also endorses nausea and vomiting, vomiting approximately 4 times since arrival to ED as per patient. She stated she also feels feverish today. She denies any chest pain or shortness of breath. She has never had issues with her gallbladder before. Of note patient did have a grand mal seizure in the ED that lasted approximately 1 minute. She stated she did not feel it coming on, she typically does. Patient had vagal nerve stimulation in November 2023 and has not had a grand mal seizure since, but she stated she will still have breakthrough seizures and pet[place] seizures. She is on Keppra 1000 Mg twice daily and Lamictal 175 Mg twice daily. Denies nicotine use, or chronic alcohol use. She uses CPAP at bedtime. Admission Exam Per Admitting Provider GENERAL: NAD, non-toxic. EYE EXAM: Normal conjunctiva. PERRL, no anisocoria and EOM's grossly intact w/o pain. OROPHARYNX: Moist mucus membranes, grossly normal dentition. NECK: Trachea midline, no stridor. Supple, no nuchal rigidity, no adenopathy, non-tender. No signs of meningismus. FROM of the neck with good chin to chest and neck extension. LUNGS: Clear to auscultation. Normal chest wall mechanics. HEART: NSR, no MRG. ABDOMEN: Abdomen soft, right upper quadrant pain, no masses, no rebound or guarding. BACK: No CVA TTP. SKIN: No rashes and no bruising. UPPER EXTREMITIES: Upper extremities are grossly normal. LOWER EXTREMITIES: Grossly normal, no edema. NEURO EXAM: A&O x3, cranial nerves II-XII grossly intact, normal speech, moves all 4 extremities. Principal Diagnosis Cholelithiasis Discharge Exam Constitutional WD/WN, vitals as above Eyes PERRL, conjunctivae normal, anicteric sclerae Respiratory normal respiratory effort and able to speak in complete sentences; no respiratory distress Auscultation: lungs clear to auscultation bilaterally Cardiovascular RRR, no murmur, no edema Gastrointestinal (Abdomen) Inspection/Auscultation: abdomen normal to inspection and + abdominal surgical incision (cdi dermabond); abdomen not distended Percussion/Palpation: abdomen soft Psychiatric Orientation: oriented x 3 Discharge Data Allergies Allergy/AdvReac Type Severity Reaction Status Date / Time ampicillin Allergy Severe Anaphylaxis Verified 05/06/24 10:53 bee venom protein (honey bee) Allergy Severe Anaphylaxis Verified 05/06/24 10:53 droperidol [From Inapsine] Allergy Severe TONGUE Verified 05/06/24 10:53 SWELLED, HIVES Penicillins Allergy Severe Anaphylaxis Verified 05/06/24 10:53 promethazine [From Phenergan] Allergy Intermediate Hives Verified 05/06/24 10:53 Consultations 05/03/24 23:54 Consult General Surgery Routine ED Decision to Admit Stat 05/04/24 16:48 Consult Gastroenterology Routine Consult Neurology Routine Procedures Performed Operation Date: 05/07/24 10:30 Actual Procedures p Laparoscopic Cholecystectomy(Not Applicable) - Yara Berger DO Ordered Studies 05/03/24 20:53 CT abd pelvis IV con only Stat 05/03/24 21:07 CT head/brain wo con Stat 05/04/24 09:39 US abdomen limited Urgent Hospital Course (1) Biliary colic: Abdominal pain started after eating fatty meals AP CT revealed 13 mm calcified gallstone within nondilated gallbladder, no surrounding inflammation, biliary ductal dilation, or choledocholithiasis seen. LFTs WNL US ABD no evidence of cholecystitis General Surgery team consulted EGD was normal - mild gastritis Cholecystectomy performed on 05/07/2024 Supportive and symptomatic care with clear liq diet, pain control, antiemetics Follow up with Surgery after 2- 3 weeks (2) Seizure: Continue home meds (3) Diarrhea: Self limited / resolved (4) Nausea & vomiting: (5) Acute dehydration: (6) Hypotension: Plan #leukocytosis WBC 12.33 on presentation resolved #incidental finding AP CT revealed 1 cm left adrenal nodule that measures 54 HU, nonspecific - if no history of malignancy, consider follow-up low-dose noncontrast adrenal CT or chemical shift adrenal MRI in 12 months - If history of malignancy, recommend low-dose nonemergent noncontrast adrenal CT or chemical shift adrenal MRI follow-up study follow up with PCP Total Time Total Time Spent Total Time Spent (In Minutes): See attending attestation Discharge Plan Discharge Items Patient Disposition: Home - Self-Care Reason For Visit: BILIARY COLIC, SEIZURE Discharge Diagnosis: Acute cholecystitis Activity: As commented below Lifting: No more than 10 pounds Bathing Comment: you can shower 05/08/24. No soaking in pool/bath for 2 weeks Exercise/Sports: Wait until after follow-up appointment Non-emergency contact: Surgeon Call non-emergency contact if: your symptoms worsen, your temperature is above 101.5, your wound has increased redness, your wound has increased drainage and your wound pain has increased Follow-up/Referrals: Rah Triana DO [Primary Care Provider] - 05/15/24 9:20 am Yara Berger DO [Physician] - (call office for follow up in 2-3 weeks ) Diet: Regular Addtl Attending Provider Instructions: You were admitted to the hospital due to abdominal pain. You were found with cholelithiasis. You had a laparoscopy cholecystectomy. - You have surgical glue called dermabond on your surgical site incisions. You may shower with this on. This will tend to come off within a couple of weeks. Do not pick at it. - Follow up with Dr Berger in office 2-3 weeks , call with questions/concerns ([phone]) A discharge summary will be sent to your primary care physician to ensure continuity of care. Please bring this discharge summary with you to your next office appointment so that your provider can review it at that time. Medications: Your medication list has been reviewed and reconciled upon discharge to ensure accuracy and continuity of care. An updated list of all your medications is included with your hospital discharge paperwork. Please review this list closely and make note of any changes to your medications. Follow up appointments: - Make a follow up appointment with your PCP within the next week. It is very important that you follow up with them shortly after discharge from the hospital. - Keep all of your follow up appointments as already scheduled. If you cannot make an appointment, notify your provider. CONTACT YOUR PRIMARY CARE PROVIDER if you experience any of the following: - Difficulty following your treatment plan - Difficulty taking any of your medications CALL 911 OR GO TO THE EMERGENCY DEPARTMENT if you experience any of the following: - Sudden, severe abdominal pain or nausea/vomiting - Severe chest pain or chest pain that radiates to your jaw or arm - Sudden, severe shortness of breath or difficulty breathing Pending Studies at Discharge: Yes Studies:: surgical pathology Stand-Alone Forms: My [facility] [employer], Smoking Cessation Medications and DC Order Prescriptions: New ondansetron 4 mg tablet,disintegrating 4 mg PO DAILY Qty: 7 0RF Continued epinephrine [EpiPen] 0.3 mg/0.3 mL auto-injector 0.3 mg IM DIRECTED PRN (Reason: Allergic Reaction) Qty: 2 1RF hydroxyzine HCl 25 mg tablet 25 mg PO QID Qty: 120 0RF Nayzilam 5 mg/spray (0.1 mL) spray,non-aerosol 1 spray intranasal .COMPLEX Qty: 2 2RF Rx Instructions: 1 spray intranasally 1 spray as directed for seizure clusters, or seizure episode lasting more than 5 minutes; citalopram 40 mg tablet 40 mg PO HS Qty: 90 3RF levetiracetam [Keppra] 500 mg tablet 1,000 mg PO BID Qty: 360 3RF lamotrigine 150 mg tablet 150 mg PO BID Qty: 180 3RF lamotrigine 25 mg tablet 25 mg PO BID Qty: 180 3RF Rx Instructions: Take with lamotrigine 150mg po BID for a total of 175 mg BID. albuterol sulfate 90 mcg/actuation HFA aerosol inhaler 2 inh inhalation Q4H PRN (Reason: shortness of breath or wheezing) Qty: 8.5 2RF levothyroxine 300 mcg tablet 300 mcg PO UD Rx Instructions: 300 mcg po daily. filled 11/23 90 day supply Discharge Orders: Discharge Order (Routine); Ordered 05/08/24 Ordered By: Claudio Natarajan/Other Patient Handouts: After Gallbladder Surgery, Cholecystectomy, Treating Gastritis, Understanding Gastritis, Self-Care for Vomiting and Diarrhea Admission Data Admit Date/Time: 05/04/24 00:59 Attending Provider: Kim Holcomb Admit Provider: Jeanette Vickers Primary Care Provider: Rah Triana Other Providers: Sharan Campos; Tom Triana; Justino Estrada Jr; Torito Gifford Other Interventions: Discharge Summary Assessment (RN) Last Done: 05/08/24 09:38 Supervising Physician Co-Signing Physician Notes I personally examined the patient and verified simpson points of history and exam, discussed case, and agree with decision making and plan documented by Dr. Dino Sandoval and Torito Peter MSII. Patient POD1 s/p laparoscopic cholecystectomy. Patient reports improvement of pain overall. Incision sites appear C/D/I. Patient able to advance diet and tolerate food. She will follow- up with her PCP and surgery outpatient. Patient will require follow-up for her 1 cm left adrenal nodule with low-dose CT or MRI. Total attending time 34 minutes.
[2024-05-08 14:54] VITALS: BP 159/78; PULSE 56
--- NOTE | 2024-05-10 11:58 | Anesthesiology Progress Note ---
Date of Service May 07, 2024 Anesthesia Post Procedure Pain Intensity Right Lower Abdomen: Pain Intensity: 3 Right Upper Medial Back: Pain Intensity: 2 Right Upper Abdomen: Pain Intensity: 6 Abdomen: Pain Intensity: 3 Transfer of Care Handoff Completed per policy Notes Mental Status: alert / awake / arousable and participated in evaluation Nausea / Vomiting: adequately controlled Pain: adequately controlled Airway Patency, RR, SpO2: stable & adequate BP & HR: stable & adequate Hydration State: stable & adequate Anesthetic Complications: no major complications apparent and Pt Satisfied with anesthetic care
== END 2024-05-08 15:24 | disposition home or self-care (01) | DRG 418 ==
LOC: ED 19:13 → SUATTDRO 05-04 00:59 → INTOOBSV 05-04 00:59 → 2N 05-04 00:59